=== PATIENT | female | born 1950 | race Caucasian/White ===

== ENCOUNTER 2020-04-24 15:38 | Inpatient (IN) | payer MEDICARE, OTHER ==
[~2020-04-24] VITALS: Ht 160 cm; Wt 78.9 kg
[~2020-04-24 15:38] MED LIST: AMIN30LI2 PO; ASCO500C PO; ASPI-630 PO; ATOR40TA59 PO; BISA5TAB4 PO; CLOT15CR53 TP; CLOT30CR TP; DOCU50CA11 PO; FERR-3 PO; FLAV100T PO; FURO40TA4 PO; LORA10TA3 PO; OXYC5CAP PO; POLY500P14 PO; POTA20TA4 PO; VENL150T PO; ZINC220C7 PO
[2020-04-24] MEDS ORDERED: ACETAMINOPHEN 500 MG TABLET PO ONE (16:15)
[2020-04-24] MEDS ORDERED: IV NORMAL SALINE 1000ML BAG 1,000 ML IV ONE ×2 (16:15→18:00)
--- NOTE | 2020-04-24 16:29 | RAD ---
XR CHEST 1V History: Reason: FEVER / Spl. Instructions: / History: Comparison: August 07, 2015 Findings: Low lung volumes with mild linear bibasilar atelectasis. No consolidation. No pleural effusion. No pn eumothorax. Impression: 1. Low lung volumes with mild linear bibasilar atelectasis. Electronically signed by: Parth Badillo DO (04/24/2020 4:27 PM) [facility]
[2020-04-24 16:33] LABS: BASO # 0.1 x10^3/uL (0.0-0.2); BASO % 1 % (0-3); EOS # 0.3 x10^3/uL (0.0-0.7); EOS % 2 % (0-3); HEMATOCRIT 40.2 % (36.0-47.0); HEMOGLOBIN 12.9 g/dL (12.0-15.5); LYMPH # 2.3 x10^3/uL (1.0-4.8); LYMPH % 16 % (24-48); MEAN CORPUSCULAR HEMOGLOBIN 25 pg (25-35); MEAN CORPUSCULAR HGB CONC 32 g/dL (31-37); MEAN CORPUSCULAR VOLUME 78 fL (79-100); MONO # 1.4 x10^3/uL (0.0-1.1); MONO % 9 % (0-9); NEUT # 10.7 x10^3/uL (1.8-7.7); NEUT % 73 % (31-73); PLATELET COUNT 322 x10^3/uL (140-400); RED BLOOD COUNT 5.18 x10^6/uL (3.50-5.40); RED CELL DISTRIBUTION WIDTH 17.7 % (11.5-14.5); WHITE BLOOD COUNT 14.8 x10^3/uL (4.0-11.0)
[2020-04-24 17:01] LABS: BILIRUBIN,URINE NEGATIVE (NEG); CLARITY,URINE CLEAR; COLOR,URINE YELLOW; NITRITE,URINE NEGATIVE (NEG); PH,URINE 8.5 (<5.0-8.0); PROTEIN,URINE 30 mg/dL (NEG-TRACE)
[2020-04-24 17:15] LABS: BACTERIA,URINE MODERATE /HPF (0-FEW); RBC,URINE 0 /HPF (0-2)
[2020-04-24 17:22] LABS: CREATININE 0.8 mg/dL (0.6-1.0); GFR 70.9; POTASSIUM 4.7 mmol/L (3.5-5.1)
[2020-04-24 17:28] LABS: ALBUMIN 2.9 g/dL (3.4-5.0); ALBUMIN/GLOBULIN RATIO 0.6 (1.0-1.7); TOTAL BILIRUBIN 0.5 mg/dL (0.2-1.0)
--- NOTE | 2020-04-24 17:37 | RAD ---
Examination: Frontal view of the abdomen HISTORY: History of baclofen pump location, COMPARISON: None available Findings/ impression: Evaluation of the small bowel is limited due to paucity of gas in the small bowel.. Feces and gas not ed in the colon. Baclofen pump is identified with the wire projecting in the level of L2 or L3 verteb ral level. The evaluation of distal aspect of the wire is limited due to bowel gas and due to body francisco bitus. Electronically signed by: Kameron Fu MD (04/24/2020 5:35 PM) [id number]
[2020-04-24 17:43] LABS: INFLUENZA A PATIENT NEGATIVE (NEGATIVE); INFLUENZA B PATIENT NEGATIVE (NEGATIVE)
--- NOTE | 2020-04-24 17:56 | PHYS DOC ---
Past Medical History Past Medical History: Anemia, Constipation, Depression, Hypertension, [place], Pneumonia, UTI, Other Additional Past Medical Histor: multiple sclerosis, C. Diff, obesity, osteomyelitis (BEBE CELESTIN DO) Past Surgical History: Other Additional Past Surgical Histo: debreeding x 3, muscle flap repair x 2, (BEBE CELESTIN DO) Smoking Status: Never Smoker Alcohol Use: None Drug Use: None (BEBE CELESTIN DO) General Adult EDM: Chief Complaint: Right side flankl pain HPI: HPI: Patient is a 70 year old male presented to the ER by EMS from senior care due to right side flank pain, abdominal pain and fever. Patient was tested positive for COVID-19 INFECTION on 03/24/20. Patient has MS, has urostomy and colostomy. Patient also has fever with generalized weakness. Patient has baclofen pump on the right side. Patient said last week when she was evaluated at , when they moved her, they pumped her right side of abdomen against the bed rail. Since she has right side abdominal pain. (BEBE CELESTIN DO) Review of Systems: Review of Systems: Constitutional: Positive for fever and chills. [] Eyes: Denies change in visual acuity. [] HENT: Denies nasal congestion or sore throat. [] Respiratory: Denies cough or shortness of breath. [] Cardiovascular: Denies chest pain or edema. [] GI: Positive for abdominal pain, nausea, vomiting, NO bloody stools or diarrhea. [] : Denies dysuria. [] Musculoskeletal: Denies back pain or joint pain. [] Integument: Denies rash. [] Neurologic: Denies headache, focal weakness or sensory changes. [] Endocrine: Denies polyuria or polydipsia. [] Lymphatic: Denies swollen glands. [] Psychiatric: Denies depression or anxiety. [] (BEBE CELESTIN DO) Heart Score: Risk Factors: Risk Factors: DM, Current or recent (<one month) smoker, HTN, HLP, family history of CAD, obesity. Risk Scores: Score 0 - 3: 2.5% MACE over next 6 weeks - Discharge Home Score 4 - 6: 20.3% MACE over next 6 weeks - Admit for Clinical Observation Score 7 - 10: 72.7% MACE over next 6 weeks - Early Invasive Strategies (BEBE CELESTIN DO) Current Medications: Current Medications Medications (Trade) Dose Ordered Sig/Alison Start Time Stop Time Status Last Admin Dose Admin Acetaminophen (Tylenol) 1,000 mg 1X ONCE 04/24/20 16:15 04/24/20 16:16 DC 04/24/20 16:26 1,000 MG Levofloxacin/ Dextrose 150 ml @ 100 mls/hr 1X ONCE 04/24/20 17:30 04/24/20 18:59 Sodium Chloride 1,000 ml @ 1,000 mls/hr 1X ONCE 04/24/20 16:15 04/24/20 17:14 DC 04/24/20 16:26 1,000 MLS/HR (BEBE CELESTIN DO) Allergies: Allergies: Allergies Coded Allergies Type Severity Reaction Last Updated Verified ceftriaxone Allergy Severe Anaphylaxis 08/07/15 Yes (BEBE CELESTIN DO) Physical Exam: PE: Constitutional: Well developed, well nourished, no acute distress, non-toxic a ppearance. [] HENT: Normocephalic, atraumatic, bilateral external ears normal, oropharynx moist, no oral exudates, nose normal. [] Eyes: PERRLA, EOMI, conjunctiva normal, no discharge. [] Neck: Normal range of motion, no tenderness, supple, no stridor. [] Cardiovascular: Sinus tachycardia, regular rhythm, no murmur [] Lungs & Thorax: Bilateral breath sounds clear to auscultation [] Abdomen: Bowel sounds normal, soft, There is right side flank tenderness to palpation, no masses, no pulsatile masses. [] Skin: Warm, dry, facial hot flush. Back: No tenderness, RIGHT SIDE CVA tenderness. [] Extremities: No tenderness, no cyanosis, no clubbing, ROM intact, no edema. [] Neurologic: Alert and oriented X 3, normal motor function, normal sensory function, no focal deficits noted. [] Psychologic: Affect normal, judgement normal, mood normal. [] (BEBE CELESTIN DO) Current Patient Data: Labs: Laboratory Tests Test 04/24/20 16:14 04/24/20 16:46 04/24/20 16:53 White Blood Count 14.8 x10^3/uL (4.0-11.0) H Red Blood Count 5.18 x10^6/uL (3.50-5.40) Hemoglobin 12.9 g/dL (12.0-15.5) Hematocrit 40.2 % (36.0-47.0) Mean Corpuscular Volume 78 fL (79-100) L Mean Corpuscular Hemoglobin 25 pg (25-35) Mean Corpuscular Hemoglobin Concent 32 g/dL (31-37) Red Cell Distribution Width 17.7 % (11.5-14.5) H Platelet Count 322 x10^3/uL (140-400) Neutrophils (%) (Auto) 73 % (31-73) Lymphocytes (%) (Auto) 16 % (24-48) L Monocytes (%) (Auto) 9 % (0-9) Eosinophils (%) (Auto) 2 % (0-3) Basophils (%) (Auto) 1 % (0-3) Neutrophils # (Auto) 10.7 x10^3/uL (1.8-7.7) H Lymphocytes # (Auto) 2.3 x10^3/uL (1.0-4.8) Monocytes # (Auto) 1.4 x10^3/uL (0.0-1.1) H Eosinophils # (Auto) 0.3 x10^3/uL (0.0-0.7) Basophils # (Auto) 0.1 x10^3/uL (0.0-0.2) Sodium Level 136 mmol/L (136-145) Potassium Level 4.7 mmol/L (3.5-5.1) Chloride Level 99 mmol/L (98-107) Carbon Dioxide Level 24 mmol/L (21-32) Anion Gap 13 (6-14) Blood Urea Nitrogen 22 mg/dL (7-20) H Creatinine 0.8 mg/dL (0.6-1.0) Estimated GFR (Cockcroft-Gault) 70.9 BUN/Creatinine Ratio 28 (6-20) H Glucose Level 219 mg/dL (70-99) H Lactic Acid Level 2.6 mmol/L (0.4-2.0) H Calcium Level 9.0 mg/dL (8.5-10.1) Total Bilirubin 0.5 mg/dL (0.2-1.0) Aspartate Amino Transferase (AST) 61 U/L (15-37) H Alanine Aminotransferase (ALT) 77 U/L (14-59) H Alkaline Phosphatase 144 U/L (46-116) H Troponin I Quantitative < 0.017 ng/mL (0.000-0.055) Total Protein 8.0 g/dL (6.4-8.2) Albumin 2.9 g/dL (3.4-5.0) L Albumin/Globulin Ratio 0.6 (1.0-1.7) L Lipase 270 U/L (73-393) Influenza Type A Antigen Negative (NEGATIVE) Influenza Type B Antigen Negative (NEGATIVE) Urine Collection Type Unknown Urine Color Yellow Urine Clarity Clear Urine pH 8.5 (<5.0-8.0) Urine Specific [place] 1.015 (1.000-1.030) Urine Protein 30 mg/dL (NEG-TRACE) Urine Glucose (UA) Negative mg/dL (NEG) Urine Ketones (Stick) Negative mg/dL (NEG) Urine Blood Trace (NEG) Urine Nitrite Negative (NEG) Urine Bilirubin Negative (NEG) Urine Urobilinogen Dipstick 1.0 mg/dL (0.2 mg/dL) Urine Leukocyte Esterase Large (NEG) Urine RBC 0 /HPF (0-2) Urine WBC 11-20 /HPF (0-4) Urine Squamous Epithelial Cells Occ /LPF Urine Bacteria Moderate /HPF (0-FEW) Urine Mucus Slight /LPF Laboratory Tests 04/24/20 16:14 Laboratory Tests 04/24/20 16:14 Vital Signs: Vital Signs Date Time Temp Pulse Resp B/P (MAP) Pulse Ox O2 Delivery O2 Flow Rate FiO2 04/24/20 15:40 102.5 154 34 93 102.5 (BEBE CELESTIN DO) EKG: EKG: [] (BEBE CELESTIN DO) Radiology/Procedures: Radiology/Procedures: [][facility] [address] [place] [address] IMAGING REPORT Signed PATIENT: NAYAN RIVERA ACCOUNT: [id number] : 1950 LOCATION: ER AGE: 70 SEX: F EXAM STATUS: REG ER ORD. PHYSICIAN: BEBE CELESTIN DO REASON: FEVER PROCEDURE: PORTABLE CHEST 1V XR CHEST 1V History: Reason: FEVER / Spl. Instructions: / History: Comparison: August 07, 2015 Findings: Low lung volumes with mild linear bibasilar atelectasis. No consolidation. No pleural effusion. No pneumothorax. Impression: 1. Low lung volumes with mild linear bibasilar atelectasis. Electronically signed by: Parth Badillo DO (04/24/2020 4:27 PM) [facility] DICTATED and SIGNED BY: PARTH BADILLO DO DATE: 04/24/20 [id number] [facility] [address] [place] [address] IMAGING REPORT Signed PATIENT: NAYAN RIVERA ACCOUNT: [id number] : 1950 LOCATION: ER AGE: 70 SEX: F EXAM STATUS: REG ER ORD. PHYSICIAN: BEBE CELESTIN DO REASON: evaluate for baclofen pump location, fracture wire PROCEDURE: KUB Examination: Frontal view of the abdomen HISTORY: History of baclofen pump location, COMPARISON: None available Findings/ impression: Evaluation of the small bowel is limited due to paucity of gas in the small bowel.. Feces and gas noted in the colon. Baclofen pump is identified with the wire projecting in the level of L2 or L3 vertebral level. The evaluation of distal aspect of the wire is limited due to bowel gas and due to body habitus. Electronically signed by: Kameron Fu MD (04/24/2020 5:35 PM) [id number] DICTATED and SIGNED BY: KAMERON FU MD DATE: 04/24/20 [id number] (BEBE CELESTIN DO) Radiology/Procedures: Examination: CT of the abdomen pelvis with IV contrast HISTORY: History of right-sided abdominal pain COMPARISON: None available TECHNIQUE: Axial CT images of the abdomen pelvis were performed with IV contrast. Coronal and sagittal reformats are performed. Exposure: One or more of the following individualized dose reduction techniques were utilized for this examination: 1. Automated exposure control 2. Adjustment of the mA and/or kV according to patient size 3. Use of iterative reconstruction technique Findings: Mild bibasilar lung atelectasis. No evidence of free air identified in the abdomen. Diffuse decreased attenuation noted in the liver likely hepatic steatosis. The spleen, adrenals grossly appears unremarkable. The gallbladder is mildly distended. The stomach is mildly distended. The visualized pancreas grossly appears unremarkable. The distal small bowel loops are mildly distended. Changes of probable right ileostomy and left colostomy changes identified. The appendix is not well-visualized. Feces and gas noted in the visualized colon. The bilateral kidneys enhance symmetrically. Minimal amount of fluid identified in the right paracolic gutter region. The coccyx is not visualized likely prior surgical changes.. There is probable ulcer identified in the right gluteal region extending to the right ischial tuberosity region. Moderate degenerative changes thoracal lumbar spine. Single lead baclofen pump identified in the lower thoracic spine level. IMPRESSION: 1. Mild distended small bowel loops in the lower small bowel region nonspecific could be partial small bowel obstruction. 2. Minimal amount of fluid identified in the right paracolic gutter region, nonspecific. 3. Hepatic steatosis. 4. There is probable ulcer identified in the right gluteal region extending to the right ischial tuberosity region. Consider follow-up MRI pelvis if osteomyelitis is considered. Electronically signed by: Kameron Fu MD (04/24/2020 6:30 PM) [id number] (RAMU VALVERDE DO) Course & Med Decision Making: Course & Med Decision Making Pertinent Labs and Imaging studies reviewed. (See chart for details) Endorsed to Dr. Ramu Valverde at shift change, pending CT abdomen and pelvic (BEBE CELESTIN DO) Course & Med Decision Making I assumed care of patient at the start of my shift. I received comprehensive signout from off going physician and reviewed patient's ER work-up in its entirety I personally saw patient and repeated certain aspects of history and physical exam. I discussed findings of sepsis with source being UTI and afebrile patient with numerous comorbidities. I also discussed finding of partial small bowel obstruction that will require continued care. I stressed need for admission I contacted hospitalist and discussed case at length, hospitalist agreed for need of admission and accepted patient under his care with plans to admit patient to medical/telemetry unit for continued inpatient medical management Updated patient on proposed plan of care that required admission for continued IV antibiotics and other services and was indicated, she was amenable. All questions and concerns addressed prior to ER transfer to floor for admission Critical Care Time This patient required critical care. Due to the fact that the patient required a significant amount of one on one physician - patient contact time, ordering and review of studies, arranging urgent treatment with development of a management plan, evaluation of patients response to treatment with frequent reassessments, and discussions with other providers this patient required 35 minutes of critical care time. Critical care time was indicated due to the inherent instability and/or potential for instability in this patient. The critical care time that is allocated to this patient is above and beyond any time spent on any other billable procedures performed on this patient. (RAMU VALVERDE DO) Dragon Disclaimer: Dragon Disclaimer: This electronic medical record was generated, in whole or in part, using a voice recognition dictation system. (BEBE CELESTIN DO) Departure Departure Impression: Primary Impression: Pyelonephritis Additional Impressions: Sepsis Multiple sclerosis Partial small bowel obstruction Disposition: 09 ADMITTED INPT THIS HOSP Admitting Physician: ISIDORO (DR. DIXON) (BEBE CELESTIN DO) Admitting Physician: ISIDORO middleton) (RAMU VALVERDE DO) Condition: IMPROVED Referrals: OLEGARIO NASH MD (PCP) BEBE CELESTIN DO Apr 24, 2020 17:56 RAMU VALVERDE DO Apr 24, 2020 18:46
[2020-04-24] MEDS ORDERED: IOHEXOL 300 MG/ML 100ML VIAL. IV ONE (18:00)
[2020-04-24] MEDS ORDERED: MORPHINE SULFATE 4 MG/ML VIAL. IV ONE (18:00)
[2020-04-24] MEDS ORDERED: CONTRAST GIVEN. MC PRN (18:00)
--- NOTE | 2020-04-24 18:32 | RAD ---
Examination: CT of the abdomen pelvis with IV contrast HISTORY: History of right-sided abdominal pain COMPARISON: None available TECHNIQUE: Axial CT images of the abdomen pelvis were performed with IV contrast. Coronal and sagitta l reformats are performed. Exposure: One or more of the following individualized dose reduction techniques were utilized for thi s examination: 1. Automated exposure control 2. Adjustment of the mA and/or kV according to patient size 3. Use of iterative reconstruction technique Findings: Mild bibasilar lung atelectasis. No evidence of free air identified in the abdomen. Diffuse decreased attenuation noted in the liver likely hepatic steatosis. The spleen, adrenals gross ly appears unremarkable. The gallbladder is mildly distended. The stomach is mildly distended. The vi sualized pancreas grossly appears unremarkable. The distal small bowel loops are mildly distended. Changes of probable right ileostomy and left colostomy changes identified. The appendix is not well-v isualized. Feces and gas noted in the visualized colon. The bilateral kidneys enhance symmetrically. Minimal amount of fluid identified in the right paracolic gutter region. The coccyx is not visualized likely prior surgical changes.. There is probable ulcer identified in the right gluteal region extending to the right ischial tuberos ity region. Moderate degenerative changes thoracal lumbar spine. Single lead baclofen pump identified in the lowe r thoracic spine level. IMPRESSION: 1. Mild distended small bowel loops in the lower small bowel region nonspecific could be partial sma ll bowel obstruction. 2. Minimal amount of fluid identified in the right paracolic gutter region, nonspecific. 3. Hepatic steatosis. 4. There is probable ulcer identified in the right gluteal region extending to the right ischial tub erosity region. Consider follow-up MRI pelvis if osteomyelitis is considered. Electronically signed by: Kameron Fu MD (04/24/2020 6:30 PM) [id number]
[2020-04-24 23:21] VITALS: BP 133/60
[2020-04-25] MEDS ORDERED: PYRI25TA PO (02:08)
[2020-04-25] MEDS ORDERED: ATOR20TA58 PO (02:08)
[2020-04-25] MEDS ORDERED: DIPH25CA58 PO (02:08)
[2020-04-25] MEDS ORDERED: MULT-245 PO (02:08)
[2020-04-25] MEDS ORDERED: ONDA4TAB7 PO (02:08)
[2020-04-25] MEDS ORDERED: SENN-182 PO (02:08)
[2020-04-25] MEDS ORDERED: ACET325T9 PO (02:08)
[2020-04-25] MEDS ORDERED: PROP10DR3 EACHEYE (02:08)
[2020-04-25] MEDS ORDERED: ZINC220T3 PO (02:08)
[2020-04-25] MEDS ORDERED: VENL75TA PO (02:08)
[2020-04-25] MEDS ORDERED: MELA5TAB11 SL (02:08)
[2020-04-25] MEDS ORDERED: CETI10TA16 PO (02:08)
[2020-04-25 04:14] VITALS: BP 121/46
[2020-04-25 07:00] VITALS: BP 108/29
--- NOTE | 2020-04-25 08:52 | PDOC1 ---
History and Physical Date of Admission Date of Admission DATE: 04/25/20 TIME: 08:51 Identification/Chief Complaint Chief Complaint seen in er with possible pyelonephritis , sacral wound 70 year old female presented to the ER by EMS from [facility] due to right side flank pain, abdominal pain and fever. tested positive for COVID-19 INFECTION on 03/24/20. Patient has MS, has urostomy and colostomy. // has fever with generalized weakness. hx baclofen pump on the right side. // last week when she was evaluated at , when they moved her, they pumped her right side of abdomen against the bed rail. Since she has right side abdominal pain in 2016 developed a large sacral decubitus ulcer and hospitalized at [facility] for osteomyelitis. At that time, she underwent a debridement and was transferred to [facility] where she completed a course of IV antibiotics. Past Medical History Past Medical History Past Medical History Past Medical History: Anemia, Constipation, Depression, Hypertension, [place], Pneumonia, UTI, Other Additional Past Medical Histor: multiple sclerosis, C. Diff, obesity, osteomyelitis Past Surgical History: Other Additional Past Surgical Histo: debreeding x 3, muscle flap repair x 2, Smoking Status: Never Smoker Alcohol Use: None Drug Use: None fhx HTN Cardiovascular: Hyperlipidemia Family History Family History: High Cholestrol, Hypertension Social History Smoke: No ALCOHOL: none Drugs: None Current Problem List Problem List Problems Medical Problems: (1) Flank pain Status: Acute (2) Multiple sclerosis Status: Acute (3) Partial small bowel obstruction Status: Acute (4) Pyelonephritis Status: Acute (5) Sepsis Status: Acute (6) UTI (urinary tract infection) Status: Acute Current Medications Current Medications Current Medications Sodium Chloride 1,000 ml @ 1,000 mls/hr 1X ONCE IV Last administered on 04/24/20at 16:26; Start 04/24/20 at 16:15; Stop 04/24/20 at 17:14; Status DC Acetaminophen (Tylenol) 1,000 mg 1X ONCE PO Last administered on 04/24/20at 16:26; Start 04/24/20 at 16:15; Stop 04/24/20 at 16:16; Status DC Levofloxacin/ Dextrose 150 ml @ 100 mls/hr 1X ONCE IV Last administered on 04/24/20at 18:32; Start 04/24/20 at 17:30; Stop 04/24/20 at 18:59; Status DC Iohexol (Omnipaque 300 Mg/ml) 75 ml 1X ONCE IV Last administered on 04/24/20at 18:07; Start 04/24/20 at 18:00; Stop 04/24/20 at 18:01; Status DC Info (CONTRAST GIVEN -- Rx MONITORING) 1 each PRN DAILY PRN MC SEE COMMENTS; Start 04/24/20 at 18:00; Stop 04/26/20 at 17:59 Morphine Sulfate (Morphine Sulfate) 4 mg 1X ONCE IV ; Start 04/24/20 at 18:00; Stop 04/24/20 at 18:01; Status DC Sodium Chloride 1,000 ml @ 1,000 mls/hr 1X ONCE IV Last administered on 04/24/20at 18:32; Start 04/24/20 at 18:00; Stop 04/24/20 at 18:59; Status DC Active Scripts Active Reported Zofran (Ondansetron Hcl) 4 Mg Tablet 1 Tab PO Q4HRS PRN Zinc Sulfate 220 Mg Tablet 1 Tab PO QHS 30 Days Pyridoxine HCl (Pyridoxine HCl (Vitamin B6)) 25 Mg Tablet 100 Mg PO QAM Venlafaxine Hcl 75 Mg Tablet 187.5 Mg PO DAILY Systane Ultra 0.4-0.3% Eye Drp (Propylene Glycol/Peg 400) 10 Ml Drops 1 Drop EACHEYE QID PRN Senna (Sennosides) 8.6 Mg Tablet 8.6 Mg PO QEVNG Multi Vitamin Daily (Multivitamin) 1 Each Tablet 1 Tab PO DAILY 30 Days Melatonin 5 Mg Tab.subl 2 Tab SL QHS 30 Days Cetirizine Hcl 10 Mg Tablet 1 Tab PO DAILY Benadryl (Diphenhydramine Hcl) 25 Mg Capsule 25 Mg PO Q6HRS Atorvastatin Calcium 20 Mg Tablet 20 Mg PO HS Tylenol (Acetaminophen) 325 Mg Tablet 2 Tab PO PRN Q6HRS PRN Vitamin C (Ascorbic Acid) 500 Mg Capsule.er 500 Mg PO DAILY Polyethylene Glycol (Polyethylene Glycol 8000) 500 Gm Powder 17 Gm PO DAILY Furosemide 40 Mg Tablet 1 Tab PO DAILY Ferrousul (Ferrous Sulfate) 325 Mg Tablet 325 Mg PO DAILY Colace Clear (Docusate Sodium) 50 Mg Capsule 100 Mg PO BID Clotrimazole Af (Clotrimazole) 30 Gm Cream..g. 30 Gm TP Bisacodyl 5 Mg Tablet.dr 5 Mg PO PRN DAILY PRN Aspirin 81 Mg Tab.chew 1 Tab PO DAILY Allergies Allergies: Coded Allergies: ceftriaxone (Verified Allergy, Severe, Anaphylaxis, 08/07/15) ROS Review of System onstitutional: Positive for fever and chills. [] Eyes: Denies change in visual acuity. [] HENT: Denies nasal congestion or sore throat. [] Respiratory: Denies cough or shortness of breath. [] Cardiovascular: Denies chest pain or edema. [] GI: Positive for abdominal pain, nausea, vomiting, NO bloody stools or diarrhea. [] : Denies dysuria. [] Musculoskeletal: Denies back pain or joint pain. [] Integument: Denies rash. [] Neurologic: Denies headache, focal weakness or sensory changes. [] Endocrine: Denies polyuria or polydipsia. [] Lymphatic: Denies swollen glands. [] Psychiatric: Denies depression or anxiety. [] 14 pt ros otherwise neg Physical Exam Physical Exam Constitutional: Well developed, well nourished, no acute distress, non-toxic appearance. [] HENT: Normocephalic, atraumatic, bilateral external ears normal, oropharynx moist, no oral exudates, nose normal. [] Eyes: PERRLA, EOMI, conjunctiva normal, no discharge. [] Neck: Normal range of motion, no tenderness, supple, no stridor. [] Cardiovascular: Sinus tachycardia, regular rhythm, no murmur [] Lungs & Thorax: Bilateral breath sounds clear to auscultation [] Abdomen: Bowel sounds normal, soft, There is right side flank tenderness to palpation, no masses, no pulsatile masses. [] Skin: Warm, dry, facial hot flush. sacral wound Back: No tenderness, RIGHT SIDE CVA tenderness. [] Extremities: No tenderness, no cyanosis, no clubbing, ROM intact, no edema. [] Neurologic: Alert and oriented X 3, normal motor function, normal sensory function, no focal deficits noted. [] Psychologic: Affect normal, judgment normal, mood normal. [] Vitals Vitals Vital Signs Date Time Temp Pulse Resp B/P (MAP) Pulse Ox O2 Delivery O2 Flow Rate FiO2 04/25/20 07:00 96.2 88 18 108/29 (55) 97 Room Air 96.2 Labs Labs Laboratory Tests Test 04/24/20 16:14 04/24/20 16:46 04/24/20 16:53 04/25/20 03:30 White Blood Count 14.8 x10^3/uL (4.0-11.0) Red Blood Count 5.18 x10^6/uL (3.50-5.40) Hemoglobin 12.9 g/dL (12.0-15.5) Hematocrit 40.2 % (36.0-47.0) Mean Corpuscular Volume 78 fL (79-100) Mean Corpuscular Hemoglobin 25 pg (25-35) Mean Corpuscular Hemoglobin Concent 32 g/dL (31-37) Red Cell Distribution Width 17.7 % (11.5-14.5) Platelet Count 322 x10^3/uL (140-400) Neutrophils (%) (Auto) 73 % (31-73) Lymphocytes (%) (Auto) 16 % (24-48) Monocytes (%) (Auto) 9 % (0-9) Eosinophils (%) (Auto) 2 % (0-3) Basophils (%) (Auto) 1 % (0-3) Neutrophils # (Auto) 10.7 x10^3/uL (1.8-7.7) Lymphocytes # (Auto) 2.3 x10^3/uL (1.0-4.8) Monocytes # (Auto) 1.4 x10^3/uL (0.0-1.1) Eosinophils # (Auto) 0.3 x10^3/uL (0.0-0.7) Basophils # (Auto) 0.1 x10^3/uL (0.0-0.2) Sodium Level 136 mmol/L (136-145) Potassium Level 4.7 mmol/L (3.5-5.1) Chloride Level 99 mmol/L (98-107) Carbon Dioxide Level 24 mmol/L (21-32) Anion Gap 13 (6-14) Blood Urea Nitrogen 22 mg/dL (7-20) Creatinine 0.8 mg/dL (0.6-1.0) Estimated GFR (Cockcroft-Gault) 70.9 BUN/Creatinine Ratio 28 (6-20) Glucose Level 219 mg/dL (70-99) Lactic Acid Level 2.6 mmol/L (0.4-2.0) 1.5 mmol/L (0.4-2.0) Calcium Level 9.0 mg/dL (8.5-10.1) Total Bilirubin 0.5 mg/dL (0.2-1.0) Aspartate Amino Transf (AST/SGOT) 61 U/L (15-37) Alanine Aminotransferase (ALT/SGPT) 77 U/L (14-59) Alkaline Phosphatase 144 U/L (46-116) Troponin I Quantitative < 0.017 ng/mL (0.000-0.055) Total Protein 8.0 g/dL (6.4-8.2) Albumin 2.9 g/dL (3.4-5.0) Albumin/Globulin Ratio 0.6 (1.0-1.7) Lipase 270 U/L (73-393) Influenza Type A Antigen Negative (NEGATIVE) Influenza Type B Antigen Negative (NEGATIVE) Urine Collection Type Unknown Urine Color Yellow Urine Clarity Clear Urine pH 8.5 (<5.0-8.0) Urine Specific [place] 1.015 (1.000-1.030) Urine Protein 30 mg/dL (NEG-TRACE) Urine Glucose (UA) Negative mg/dL (NEG) Urine Ketones (Stick) Negative mg/dL (NEG) Urine Blood Trace (NEG) Urine Nitrite Negative (NEG) Urine Bilirubin Negative (NEG) Urine Urobilinogen Dipstick 1.0 mg/dL (0.2 mg/dL) Urine Leukocyte Esterase Large (NEG) Urine RBC 0 /HPF (0-2) Urine WBC 11-20 /HPF (0-4) Urine Squamous Epithelial Cells Occ /LPF Urine Bacteria Moderate /HPF (0-FEW) Urine Mucus Slight /LPF Test 04/25/20 08:12 Glucose (Fingerstick) 184 mg/dL (70-99) Laboratory Tests Test 04/24/20 16:14 04/24/20 16:46 04/24/20 16:53 04/25/20 03:30 White Blood Count 14.8 x10^3/uL (4.0-11.0) Red Blood Count 5.18 x10^6/uL (3.50-5.40) Hemoglobin 12.9 g/dL (12.0-15.5) Hematocrit 40.2 % (36.0-47.0) Mean Corpuscular Volume 78 fL (79-100) Mean Corpuscular Hemoglobin 25 pg (25-35) Mean Corpuscular Hemoglobin Concent 32 g/dL (31-37) Red Cell Distribution Width 17.7 % (11.5-14.5) Platelet Count 322 x10^3/uL (140-400) Neutrophils (%) (Auto) 73 % (31-73) Lymphocytes (%) (Auto) 16 % (24-48) Monocytes (%) (Auto) 9 % (0-9) Eosinophils (%) (Auto) 2 % (0-3) Basophils (%) (Auto) 1 % (0-3) Neutrophils # (Auto) 10.7 x10^3/uL (1.8-7.7) Lymphocytes # (Auto) 2.3 x10^3/uL (1.0-4.8) Monocytes # (Auto) 1.4 x10^3/uL (0.0-1.1) Eosinophils # (Auto) 0.3 x10^3/uL (0.0-0.7) Basophils # (Auto) 0.1 x10^3/uL (0.0-0.2) Sodium Level 136 mmol/L (136-145) Potassium Level 4.7 mmol/L (3.5-5.1) Chloride Level 99 mmol/L (98-107) Carbon Dioxide Level 24 mmol/L (21-32) Anion Gap 13 (6-14) Blood Urea Nitrogen 22 mg/dL (7-20) Creatinine 0.8 mg/dL (0.6-1.0) Estimated GFR (Cockcroft-Gault) 70.9 BUN/Creatinine Ratio 28 (6-20) Glucose Level 219 mg/dL (70-99) Lactic Acid Level 2.6 mmol/L (0.4-2.0) 1.5 mmol/L (0.4-2.0) Calcium Level 9.0 mg/dL (8.5-10.1) Total Bilirubin 0.5 mg/dL (0.2-1.0) Aspartate Amino Transf (AST/SGOT) 61 U/L (15-37) Alanine Aminotransferase (ALT/SGPT) 77 U/L (14-59) Alkaline Phosphatase 144 U/L (46-116) Troponin I Quantitative < 0.017 ng/mL (0.000-0.055) Total Protein 8.0 g/dL (6.4-8.2) Albumin 2.9 g/dL (3.4-5.0) Albumin/Globulin Ratio 0.6 (1.0-1.7) Lipase 270 U/L (73-393) Influenza Type A Antigen Negative (NEGATIVE) Influenza Type B Antigen Negative (NEGATIVE) Urine Collection Type Unknown Urine Color Yellow Urine Clarity Clear Urine pH 8.5 (<5.0-8.0) Urine Specific [place] 1.015 (1.000-1.030) Urine Protein 30 mg/dL (NEG-TRACE) Urine Glucose (UA) Negative mg/dL (NEG) Urine Ketones (Stick) Negative mg/dL (NEG) Urine Blood Trace (NEG) Urine Nitrite Negative (NEG) Urine Bilirubin Negative (NEG) Urine Urobilinogen Dipstick 1.0 mg/dL (0.2 mg/dL) Urine Leukocyte Esterase Large (NEG) Urine RBC 0 /HPF (0-2) Urine WBC 11-20 /HPF (0-4) Urine Squamous Epithelial Cells Occ /LPF Urine Bacteria Moderate /HPF (0-FEW) Urine Mucus Slight /LPF Test 04/25/20 08:12 Glucose (Fingerstick) 184 mg/dL (70-99) Images Images Signed PATIENT: NAYAN RIVERA ACCOUNT: [id number] : 1950 LOCATION: ER AGE: 70 SEX: F EXAM STATUS: REG ER ORD. PHYSICIAN: BEBE CELESTIN DO REASON: right side abdominal pain, fever PROCEDURE: CT ABD PELV W/ IV CONTRST ONLY Examination: CT of the abdomen pelvis with IV contrast HISTORY: History of right-sided abdominal pain COMPARISON: None available TECHNIQUE: Axial CT images of the abdomen pelvis were performed with IV contrast. Coronal and sagittal reformats are performed. Exposure: One or more of the following individualized dose reduction techniques were utilized for this examination: 1. Automated exposure control 2. Adjustment of the mA and/or kV according to patient size 3. Use of iterative reconstruction technique Findings: Mild bibasilar lung atelectasis. No evidence of free air identified in the abdomen. Diffuse decreased attenuation noted in the liver likely hepatic steatosis. The spleen, adrenals grossly appears unremarkable. The gallbladder is mildly d istended. The stomach is mildly distended. The visualized pancreas grossly appears unremarkable. The distal small bowel loops are mildly distended. Changes of probable right ileostomy and left colostomy changes identified. The appendix is not well-visualized. Feces and gas noted in the visualized colon. The bilateral kidneys enhance symmetrically. Minimal amount of fluid identified in the right paracolic gutter region. The coccyx is not visualized likely prior surgical changes.. There is probable ulcer identified in the right gluteal region extending to the right ischial tuberosity region. Moderate degenerative changes thoracal lumbar spine. Single lead baclofen pump identified in the lower thoracic spine level. IMPRESSION: 1. Mild distended small bowel loops in the lower small bowel region nonspecific could be partial small bowel obstruction. 2. Minimal amount of fluid identified in the right paracolic gutter region, nonspecific. 3. Hepatic steatosis. 4. There is probable ulcer identified in the right gluteal region extending to the right ischial tuberosity region. Consider follow-up MRI pelvis if osteomyelitis is considered. Electronically signed by: Kameron Fu MD (04/24/2020 6:30 PM) [id number] DICTATED and SIGNED BY: KAMERON FU MD DATE: 04/24/20 [id number] VTE Prophylaxis Ordered VTE Prophylaxis Devices: Yes VTE Pharmacological Prophylaxi: Yes Assessment/Plan Assessment/Plan IMPRESSION: 1. acute SEPSIS 2. Mild distended small bowel loops in the lower small bowel region nonspecific // partial small bowel obstruction. 3. Minimal amount of fluid identified in the right paracolic gutter region, nonspecific. 4. Hepatic steatosis. 5. on ct ulcer identified in the right gluteal region extending to the right ischial tuberosity region. Consider follow-up MRI pelvis to exclude osteomyelitis 6. Acute pyelonephritis 7. DIABETES plan admit reg due to sepsis, need for iv antibiotics blood and urine cultures ID consult GI CONSULT Emperic iv antibiotics, pending ID consult, levaquin ortho consult procalcitonin sepsis protocol iv fluid support dvt prophylaxis accuchrani, ss insulin Justifications for Admission Other Justification KOFI DIXON MD Apr 25, 2020 08:52
[2020-04-25] MEDS ORDERED: ACETAMINOPHEN 325 MG TABLET. PO PRN ×2 (10:15→12:30)
[2020-04-25] MEDS ORDERED: ONDANSETRON ODT 4 MG TAB.RAPDIS. PO PRN (10:45)
[2020-04-25 11:00] VITALS: BP 111/60
[2020-04-25] MEDS ORDERED: diphenhydrAMINE HCL 25 MG CAPSULE PO PRN (11:00)
[2020-04-25] MEDS ORDERED: POLYVINYL ALCOHOL 1.4% OPHTH SOLUTION 15ML BOTTLE. OU PRN (11:00)
[2020-04-25] MEDS: ASCORBIC ACID 500 MG TABLET PO SCH (11:21)
[2020-04-25] MEDS: PYRIDOXINE 50 MG TABLET. PO SCH (11:21)
[2020-04-25] MEDS: FERROUS SULFATE 325 MG TABLET. PO SCH (11:21)
[2020-04-25] MEDS: ASPIRIN CHEWABLE 81 MG TABLET. PO SCH (11:21)
[2020-04-25] MEDS: VENLAFAXINE XR 37.5 MG CAP.ER.24H. PO SCH (11:21)
[2020-04-25] MEDS: FUROSEMIDE 40 MG TABLET. PO SCH (11:27)
[2020-04-25] MEDS: CETIRIZINE HCL 10 MG TABLET. PO SCH (11:27)
[2020-04-25] MEDS: POLYETHYLENE GLYCOL 3350 17 GM PACKET. PO SCH (11:28)
[2020-04-25] MEDS: DOCUSATE SODIUM 100 MG CAPSULE. PO SCH ×2 (11:28→20:35)
[2020-04-25] MEDS ORDERED: diphenhydrAMINE HCL 25 MG CAPSULE PO SCH (12:00)
[2020-04-25] MEDS ORDERED: VANCOMYCIN PER PHARMACY MC PRN ×2 (12:15→12:30)
[2020-04-25] MEDS: IV NORMAL SALINE 1000ML BAG 1,000 ML IV SCH ×3 (12:15→14:10)
[2020-04-25] MEDS ORDERED: IV NORMAL SALINE 500ML BAG 500 ML IV PRN (12:15)
[2020-04-25] MEDS ORDERED: LORazepam 0.5 MG TABLET PO PRN (12:30)
[2020-04-25] MEDS ORDERED: SODIUM PHOSPHATES 19/7GM 133 ML ENEMA. PR PRN (12:30)
[2020-04-25] MEDS ORDERED: ACETAMINOPHEN 650 MG SUPP.RECT. PR PRN (12:30)
[2020-04-25] MEDS ORDERED: ONDANSETRON PF 4 MG/2 ML VIAL. IV PRN (12:30)
[2020-04-25] MEDS ORDERED: DOCUSATE SODIUM 100 MG CAPSULE. PO PRN (12:30)
[2020-04-25] MEDS ORDERED: 0.9 % SODIUM CHLORIDE 10 ML DISP.SYRIN. IV PRN (12:30)
[2020-04-25] MEDS ORDERED: MAG HYDROX/ALUMINUM HYD/SIMETH 30 ML ORAL.SUSP PO PRN (12:30)
[2020-04-25] MEDS ORDERED: ALBUTEROL SULFATE 2.5 MG/3 ML NEBU. NEB PRN (12:30)
[2020-04-25] MEDS ORDERED: VANCOMYCIN 2 GM in IV NORMAL SALINE 500ML BAG 500 ML IV ONE (12:45)
--- NOTE | 2020-04-25 13:02 | PDOC2 ---
GI CONSULT Date of Service: DATE: 04/25/20 TIME: 12:39 Reason For Consult: possible partial SBO HPI: HPI: 70 y/o female sent from care facility to ER w/ neck and right rib pain which occurred after staff pushed on ribs on turn her. Apparently also had concern re: dislodgement of baclofen pump. CT A/P report notes "mild distended small bowel loops in the lower small bowel region nonspecific" and we are asked to see re: this. She was eating broccoli, salad, roast beef, and bread when I saw. Nurse says no vomiting or c/o pain. Has tolerated diet today. Noted stool from ostomy this morning. Pt also denies vomiting and abdominal pain. Recently had COVID and had some na usea then which has improved. H/o constipation improved w/ Miralax QD-BID. No stool yesterday - "just a little liquid." Takes iron. During interview, she notes she is passing gas. H/o MS and sacral decub s/p flap - advised to have colostomy before surgery (done at ). Additional h/o neurogenic bladder s/p SPC and now urostomy (also done at ). H/o reflux before EGD (can't remember where performed - either or [facility]) ~3 years ago - no reflux now. EGD recalled as normal. No dysphagia - does m ention it's difficult to eat and cut food up with one hand - would like help with this from staff. Denies bleeding. Weight stable. No previous colonoscopy. No GB, liver, pancreas, or PUD history. Hepatic steatosis noted on CT. Summary list includes ASA. Says she is moving to living facility in [place] soon where her [id number] in an participant administrator. PMH: PMH: MS, HTN, HLD, pneumonia, COVID, PR, depression, UTI, nephrolithiasis, sacral decub s/p debridement and flap, hysterectomy, lithotripsy, baclofen pump FH: Family History: No pertinent hx Social History: Smoke: No ALCOHOL: none Drugs: None ROS: GEN: +fever HEENT: Denies blurred vision, sore throat CV: Denies chest pain RESP: Denies shortness of air, cough GI: Per HPI : +urostomy ENDO: Denies weight changes NEURO/MSK: MS SKIN: Denies jaundice, pruritus Vitals: Vitals: Vital Signs Date Time Temp Pulse Resp B/P (MAP) Pulse Ox O2 Delivery O2 Flow Rate FiO2 04/25/20 11:00 97.9 95 20 111/60 (77) 94 Room Air 97.9 Labs: Labs: Laboratory Tests Test 04/24/20 16:14 04/24/20 16:46 04/24/20 16:53 04/25/20 03:30 White Blood Count 14.8 x10^3/uL (4.0-11.0) Red Blood Count 5.18 x10^6/uL (3.50-5.40) Hemoglobin 12.9 g/dL (12.0-15.5) Hematocrit 40.2 % (36.0-47.0) Mean Corpuscular Volume 78 fL (79-100) Mean Corpuscular Hemoglobin 25 pg (25-35) Mean Corpuscular Hemoglobin Concent 32 g/dL (31-37) Red Cell Distribution Width 17.7 % (11.5-14.5) Platelet Count 322 x10^3/uL (140-400) Neutrophils (%) (Auto) 73 % (31-73) Lymphocytes (%) (Auto) 16 % (24-48) Monocytes (%) (Auto) 9 % (0-9) Eosinophils (%) (Auto) 2 % (0-3) Basophils (%) (Auto) 1 % (0-3) Neutrophils # (Auto) 10.7 x10^3/uL (1.8-7.7) Lymphocytes # (Auto) 2.3 x10^3/uL (1.0-4.8) Monocytes # (Auto) 1.4 x10^3/uL (0.0-1.1) Eosinophils # (Auto) 0.3 x10^3/uL (0.0-0.7) Basophils # (Auto) 0.1 x10^3/uL (0.0-0.2) Sodium Level 136 mmol/L (136-145) Potassium Level 4.7 mmol/L (3.5-5.1) Chloride Level 99 mmol/L (98-107) Carbon Dioxide Level 24 mmol/L (21-32) Anion Gap 13 (6-14) Blood Urea Nitrogen 22 mg/dL (7-20) Creatinine 0.8 mg/dL (0.6-1.0) Estimated GFR (Cockcroft-Gault) 70.9 BUN/Creatinine Ratio 28 (6-20) Glucose Level 219 mg/dL (70-99) Lactic Acid Level 2.6 mmol/L (0.4-2.0) 1.5 mmol/L (0.4-2.0) Calcium Level 9.0 mg/dL (8.5-10.1) Total Bilirubin 0.5 mg/dL (0.2-1.0) Aspartate Amino Transf (AST/SGOT) 61 U/L (15-37) Alanine Aminotransferase (ALT/SGPT) 77 U/L (14-59) Alkaline Phosphatase 144 U/L (46-116) Troponin I Quantitative < 0.017 ng/mL (0.000-0.055) Total Protein 8.0 g/dL (6.4-8.2) Albumin 2.9 g/dL (3.4-5.0) Albumin/Globulin Ratio 0.6 (1.0-1.7) Lipase 270 U/L (73-393) Influenza Type A Antigen Negative (NEGATIVE) Influenza Type B Antigen Negative (NEGATIVE) Urine Collection Type Unknown Urine Color Yellow Urine Clarity Clear Urine pH 8.5 (<5.0-8.0) Urine Specific [place] 1.015 (1.000-1.030) Urine Protein 30 mg/dL (NEG-TRACE) Urine Glucose (UA) Negative mg/dL (NEG) Urine Ketones (Stick) Negative mg/dL (NEG) Urine Blood Trace (NEG) Urine Nitrite Negative (NEG) Urine Bilirubin Negative (NEG) Urine Urobilinogen Dipstick 1.0 mg/dL (0.2 mg/dL) Urine Leukocyte Esterase Large (NEG) Urine RBC 0 /HPF (0-2) Urine WBC 11-20 /HPF (0-4) Urine Squamous Epithelial Cells Occ /LPF Urine Bacteria Moderate /HPF (0-FEW) Urine Mucus Slight /LPF C-Reactive Protein, Quantitative 102.0 mg/L (0-3.3) Test 04/25/20 08:12 04/25/20 11:36 Glucose (Fingerstick) 184 mg/dL (70-99) 245 mg/dL (70-99) Allergies: Coded Allergies: ceftriaxone (Verified Allergy, Severe, Anaphylaxis, 08/07/15) Medications: Current Medications Medications (Trade) Dose Ordered Sig/Alison Route PRN Reason Start Time Stop Time Status Last Admin Dose Admin Sodium Chloride 1,000 ml @ 1,000 mls/hr 1X ONCE IV 04/24/20 16:15 04/24/20 17:14 DC 04/24/20 16:26 Acetaminophen (Tylenol) 1,000 mg 1X ONCE PO 04/24/20 16:15 04/24/20 16:16 DC 04/24/20 16:26 Levofloxacin/ Dextrose 150 ml @ 100 mls/hr 1X ONCE IV 04/24/20 17:30 04/24/20 18:59 DC 04/24/20 18:32 Iohexol (Omnipaque 300 Mg/ml) 75 ml 1X ONCE IV 04/24/20 18:00 04/24/20 18:01 DC 04/24/20 18:07 Sodium Chloride 1,000 ml @ 1,000 mls/hr 1X ONCE IV 04/24/20 18:00 04/24/20 18:59 DC 04/24/20 18:32 Aspirin (Aspirin Chewable) 81 mg DAILY PO 04/25/20 11:00 04/25/20 11:21 Cetirizine HCl (ZyrTEC) 10 mg DAILY PO 04/25/20 11:00 04/25/20 11:27 Ferrous Sulfate (Feosol) 325 mg DAILYWBKFT PO 04/25/20 12:00 04/25/20 11:21 Furosemide (Lasix) 40 mg DAILY PO 04/25/20 11:00 04/25/20 11:27 Venlafaxine HCl (Effexor Xr) 187.5 mg DAILY PO 04/25/20 11:00 04/25/20 11:21 Ascorbic Acid (Vitamin C) 500 mg DAILY PO 04/25/20 11:00 04/25/20 11:21 Docusate Sodium (Colace) 100 mg BID PO 04/25/20 11:00 04/25/20 11:28 Polyethylene Glycol (miraLAX PACKET) 17 gm DAILY PO 04/25/20 11:00 04/25/20 11:28 Pyridoxine HCl (Vitamin B-6) 100 mg DAILY PO 04/25/20 11:00 04/25/20 11:21 Imaging: Imaging: CT A/P 04/24 Findings: Mild bibasilar lung atelectasis. No evidence of free air identified in the abdomen. Diffuse decreased attenuation noted in the liver likely hepatic steatosis. The spleen, adrenals grossly appears unremarkable. The gallbladder is mildly distended. The stomach is mildly distended. The visualized pancreas grossly appears unremarkable. The distal small bowel loops are mildly distended. Changes of probable right ileostomy and left colostomy changes identified. The appendix is not well-visualized. Feces and gas noted in the visualized colon. The bilateral kidneys enhance symmetrically. Minimal amount of fluid identified in the right paracolic gutter region. The coccyx is not visualized likely prior surgical changes.. There is probable ulcer identified in the right gluteal region extending to the right ischial tuberosity region. Moderate degenerative changes thoracal lumbar spine. Single lead baclofen pump identified in the lower thoracic spine level. IMPRESSION: 1. Mild distended small bowel loops in the lower small bowel region nonspecific could be partial small bowel obstruction. 2. Minimal amount of fluid identified in the right paracolic gutter region, nonspecific. 3. Hepatic steatosis. 4. There is probable ulcer identified in the right gluteal region extending to the right ischial tuberosity region. Consider follow-up MRI pelvis if osteomyelitis is considered. KUB 04/24 Evaluation of the small bowel is limited due to paucity of gas in the small bowel.. Feces and gas noted in the colon. Baclofen pump is identified with the wire projecting in the level of L2 or L3 vertebral level. The evaluation of distal aspect of the wire is limited due to bowel gas and due to body habitus. CXR 04/24 Impression: 1. Low lung volumes with mild linear bibasilar atelectasis. PE: GEN: NAD HEENT: Atraumatic, PERRL LUNGS: diminished anteriorly HEART: RRR ABD: NABS, soft, round, non-tender, left-sided colostomy w/ small pieces of dark (looks like iron) formed stool, right-sided urostomy EXTREMITY: contractures SKIN: No rashes, no jaundice NEURO/PSYCH: A & O 3 A/P: A/P: Neck/rib pain Fever, UTI Leukocytosis, microcytosis (chronic), mildly elevated LFTs, lactic acidosis (resolved) Abnormal CT report - mild distended small bowel loops in the lower small bowel region nonspecific, minimal amount of fluid identified in the right paracolic gutter region nonspecific, probable ulcer identified in the right gluteal region extending to the right ischial tuberosity region H/o reflux - currently not bothersome, reports normal past EGD CRC screen - none H/o constipation - controlled w/ Miralax. Hepatic steatosis H/o MS and sacral wound w/ colostomy and urostomy H/o COVID -- Unclear significance of SB findings per CT report - she's eating and stooling. She requests Miralax once daily (already ordered) + PRN dose (which I will add). Check iron profile for completeness. Since I have seen her, she was made NPO. Okay to eat per GI. BIANCA HAWTHORNE Apr 25, 2020 13:02
[2020-04-25] MEDS ORDERED: POLYETHYLENE GLYCOL 3350 17 GM PACKET. PO PRN (13:15)
[2020-04-25 13:22] LABS: PROTHROMBIN TIME PATIENT 16.5 SEC (11.7-14.0)
[2020-04-25] MEDS ORDERED: DEXTROSE 50% 25 GM / 50ML DISP.SYRIN. IV PRN (14:00)
[2020-04-25 14:01] LABS: BASO # 0.1 x10^3/uL (0.0-0.2); BASO % 1 % (0-3); EOS # 0.5 x10^3/uL (0.0-0.7); EOS % 4 % (0-3); HEMATOCRIT 36.2 % (36.0-47.0); HEMOGLOBIN 11.7 g/dL (12.0-15.5); LYMPH # 2.5 x10^3/uL (1.0-4.8); LYMPH % 24 % (24-48); MEAN CORPUSCULAR HEMOGLOBIN 25 pg (25-35); MEAN CORPUSCULAR HGB CONC 32 g/dL (31-37); MEAN CORPUSCULAR VOLUME 78 fL (79-100); MONO % 10 % (0-9); NEUT # 6.5 x10^3/uL (1.8-7.7); NEUT % 62 % (31-73); PLATELET COUNT 280 x10^3/uL (140-400); RED BLOOD COUNT 4.63 x10^6/uL (3.50-5.40); RED CELL DISTRIBUTION WIDTH 17.7 % (11.5-14.5); WHITE BLOOD COUNT 10.5 x10^3/uL (4.0-11.0)
[2020-04-25 14:04] LABS: D-DIMER 8.57 ug/mlFEU (0.00-0.50)
[2020-04-25] MEDS: ENOXAPARIN 40 MG/0.4 ML SYRINGE. SQ SCH (14:10)
[2020-04-25 15:00] VITALS: BP 130/58
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
--- NOTE | 2020-04-25 16:06 | NUR ---
SW following for discharge planning. Spoke with RN and reviewed chart. Pt room air, IV Zosyn, cardiac diet. Discharge plan is home, self-care. No anticipated SW needs on discharge. Addendum: 04/28/20 at 0908 by JENNY JIMÉNEZ SW Pt identified as BPCI. Discharge planners to follow, no further needs from this SW.
[2020-04-25] MEDS: PIPERACILLIN/TAZOBACTAM 3.375 GM in IV NORMAL SALINE 50ML 50 ML IV SCH (17:28)
[2020-04-25] MEDS: SENNOSIDES 8.6 MG TABLET PO SCH (17:28)
[2020-04-25] MEDS: INSULIN LISPRO 300 UNITS/3 ML VIAL. SQ SCH (17:29)
[2020-04-25 19:00] VITALS: BP 119/44
[2020-04-25] MEDS: ZINC SULFATE 220 MG CAPSULE. PO SCH (20:35)
[2020-04-25] MEDS: LACTOBACILLUS RHAMNOSUS GG 1 CAPSULE. PO SCH (20:35)
[2020-04-25] MEDS: ATORVASTATIN CALCIUM 20 MG TABLET PO SCH (20:35)
[2020-04-25] MEDS ORDERED: INSULIN LISPRO 300 UNITS/3 ML VIAL. SQ ONE (21:00)
[2020-04-25] MEDS ORDERED: NON FORMULARY ITEM (Melatonin 2 TAB) SL SCH (21:00)
[2020-04-25] MEDS: BENZOCAINE/MENTHOL LOZENGE. PO PRN (21:24)
[2020-04-25 22:48] VITALS: BP 133/56
[2020-04-26] MEDS: PIPERACILLIN/TAZOBACTAM 3.375 GM in IV NORMAL SALINE 50ML 50 ML IV SCH ×4 (00:20→17:04)
[2020-04-26] MEDS: IV NORMAL SALINE 1000ML BAG 1,000 ML IV SCH ×2 (00:20→08:39)
[2020-04-26 03:00] VITALS: BP 133/62
[2020-04-26 05:09] LABS: BASO # 0.1 x10^3/uL (0.0-0.2); BASO % 1 % (0-3); EOS # 0.5 x10^3/uL (0.0-0.7); EOS % 6 % (0-3); HEMATOCRIT 35.6 % (36.0-47.0); HEMOGLOBIN 11.4 g/dL (12.0-15.5); LYMPH # 2.1 x10^3/uL (1.0-4.8); LYMPH % 25 % (24-48); MEAN CORPUSCULAR HEMOGLOBIN 26 pg (25-35); MEAN CORPUSCULAR HGB CONC 32 g/dL (31-37); MEAN CORPUSCULAR VOLUME 80 fL (79-100); MONO # 0.8 x10^3/uL (0.0-1.1); MONO % 10 % (0-9); NEUT # 4.9 x10^3/uL (1.8-7.7); NEUT % 58 % (31-73); PLATELET COUNT 267 x10^3/uL (140-400); RED BLOOD COUNT 4.47 x10^6/uL (3.50-5.40); WHITE BLOOD COUNT 8.5 x10^3/uL (4.0-11.0)
[2020-04-26 05:44] LABS: ALBUMIN 2.4 g/dL (3.4-5.0); ALBUMIN/GLOBULIN RATIO 0.5 (1.0-1.7); CALCIUM 9.1 mg/dL (8.5-10.1); CREATININE 0.7 mg/dL (0.6-1.0); GFR 82.7; POTASSIUM 3.2 mmol/L (3.5-5.1); TOTAL BILIRUBIN 0.4 mg/dL (0.2-1.0); TOTAL PROTEIN 7.6 g/dL (6.4-8.2)
[2020-04-26 07:00] VITALS: BP 123/60
[2020-04-26] MEDS: MULTIVITAMIN with MINERAL TABLET. PO SCH (08:36)
[2020-04-26] MEDS: VENLAFAXINE XR 37.5 MG CAP.ER.24H. PO SCH (08:36)
[2020-04-26] MEDS: LACTOBACILLUS RHAMNOSUS GG 1 CAPSULE. PO SCH ×2 (08:36→20:27)
[2020-04-26] MEDS: POLYETHYLENE GLYCOL 3350 17 GM PACKET. PO SCH (08:36)
[2020-04-26] MEDS: ASPIRIN CHEWABLE 81 MG TABLET. PO SCH (08:36)
[2020-04-26] MEDS: FERROUS SULFATE 325 MG TABLET. PO SCH (08:37)
[2020-04-26] MEDS: DOCUSATE SODIUM 100 MG CAPSULE. PO SCH ×2 (08:37→20:27)
[2020-04-26] MEDS: PYRIDOXINE 50 MG TABLET. PO SCH (08:37)
[2020-04-26] MEDS: ASCORBIC ACID 500 MG TABLET PO SCH (08:37)
[2020-04-26] MEDS: FUROSEMIDE 40 MG TABLET. PO SCH (08:37)
[2020-04-26] MEDS: CETIRIZINE HCL 10 MG TABLET. PO SCH (08:37)
[2020-04-26] MEDS: INSULIN LISPRO 300 UNITS/3 ML VIAL. SQ SCH ×3 (08:39→17:03)
--- NOTE | 2020-04-26 10:21 | PDOC ---
PROGRESS NOTES Date of Service: DATE: 04/26/20 TIME: 10:21 Chief Complaint Chief Complaint VTE Prophylaxis Ordered VTE Prophylaxis Devices: Yes VTE Pharmacological Prophylaxi: Yes Assessment/Plan Assessment/Plan IMPRESSION: 1. acute SEPSIS 2. Mild distended small bowel loops in the lower small bowel region nonspecific // partial small bowel obstruction. 3. Minimal amount of fluid identified in the right paracolic gutter region, nonspecific. 4. Hepatic steatosis. 5. on ct ulcer identified in the right gluteal region extending to the right ischial tuberosity region. Consider follow-up MRI pelvis to exclude osteomyelitis 6. Acute pyelonephritis 7. DIABETES 8. Sacral decubitus ulcer status post flap 9. post left [id number]. post right-sided urostomy 10.COVID-19 12-20 11. Hypertension/ 12. hyperlipidemia 13. History of pneumonia 14. History of sacral osteomyelitis 15. History of nephrolithiasis; lithotripsy plan admit regular due to sepsis, need for iv antibiotics> 48 hrs blood and urine cultures ID consult GI CONSULT Emperic iv antibiotics, Start Zosyn. iv Follow-up labs and cultures Continue supportive care ortho consult procalcitonin sepsis protocol iv fluid support dvt prophylaxis accuchecks, ss insulin >100,000 CFU/ML GRAM NEGATIVE RODS on 04/26/20 at 0952 FINAL ID= [PROTEUS MIRABILIS] 1-16 39 min pt exam, chart review, > 50% of time spent with exam, chart review, pt care coordination Justifications for Admission Other Justification History of Present Illness History of Present Illness Identification/Chief Complaint Chief Complaint seen in er with possible pyelonephritis , sacral wound// 70 year old female presented to the ER by EMS from group home due to right side flank pain, abdominal pain and fever. tested positive for COVID-19 INFECTION on 03/24/20. Patient has MS, has urostomy and colostomy. // has fever with generalized weakness. hx baclofen pump on the right side. // last week when she was evaluated at , when they moved her, they pumped her right side of abdomen against the bed rail. Since she has right side abdominal pain in 2015 developed a large sacral decubitus ulcer and hospitalized at [facility] for osteomyelitis. At that time, she underwent a debridement and was transferred to [facility] where she completed a course of IV antibiotics. Past Medical History Past Medical History Past Medical History Past Medical History: Anemia, Constipation, Depression, Hypertension, CO, Pneumonia, UTI, Other Additional Past Medical Histor: multiple sclerosis, C. Diff, obesity, osteomyelitis Past Surgical History: Other Additional Past Surgical Histo: debreeding x 3, muscle flap repair x 2, Smoking Status: Never Smoker Alcohol Use: None Drug Use: None fhx HTN Cardiovascular: Hyperlipidemia Family History Family History: High Cholestrol, Hypertension Social History Smoke: No ALCOHOL: none Drugs: None Current Problem List Problem List Problems Medical Problems: (1) Flank pain Status: Acute (2) Multiple sclerosis Status: Acute (3) Partial small bowel obstruction Status: Acute (4) Pyelonephritis Status: Acute (5) Sepsis Status: Acute (6) UTI (urinary tract infection) Status: Acute Vitals Vitals Vital Signs Date Time Temp Pulse Resp B/P (MAP) Pulse Ox O2 Delivery O2 Flow Rate FiO2 04/26/20 07:00 97.0 83 20 123/60 (81) 96 Room Air 97.0 Physical Exam Physical Exam Constitutional: Well developed, well nourished, no acute distress, non-toxic appearance. [] HENT: Normocephalic, atraumatic, bilateral external ears normal, oropharynx moist, no oral exudates, nose normal. [] Eyes: PERRLA, EOMI, conjunctiva normal, no discharge. [] Neck: Normal range of motion, no tenderness, supple, no stridor. [] Cardiovascular: Sinus tachycardia, regular rhythm, no murmur [] Lungs & Thorax: Bilateral breath sounds clear to auscultation [] Abdomen: Bowel sounds normal, soft, There is right side flank tenderness to palpation, no masses, no pulsatile masses. [] Skin: Warm, dry, facial hot flush. sacral wound Back: No tenderness, RIGHT SIDE CVA tenderness. [] Extremities: No tenderness, no cyanosis, no clubbing, ROM intact, no edema. [] General: Alert, Oriented X3, No acute distress Heart: Regular rate, Normal S1, Normal S2, No murmurs Lungs: Clear Abdomen: Normal bowel sounds, Other (Urostomy and colostomy in place functioning) Extremities: No cyanosis Skin: No rashes Labs LABS History: Reason: FEVER / Spl. Instructions: / History: Comparison: August 07, 2015 Findings: Low lung volumes with mild linear bibasilar atelectasis. No consolidation. No pleural effusion. No pneumothorax. Impression: 1. Low lung volumes with mild linear bibasilar atelectasis. Electronically signed by: Parth Badillo DO (04/24/2020 4:27 PM) [facility] DICTATED and SIGNED BY: PARTH BADILLO DO Signed PATIENT: NAYAN RIVERA ACCOUNT: [id number] : 1950 LOCATION: ER AGE: 70 SEX: F EXAM STATUS: REG ER ORD. PHYSICIAN: BEBE CELESTIN DO REASON: right side abdominal pain, fever PROCEDURE: CT ABD PELV W/ IV CONTRST ONLY Examination: CT of the abdomen pelvis with IV contrast HISTORY: History of right-sided abdominal pain COMPARISON: None available TECHNIQUE: Axial CT images of the abdomen pelvis were performed with IV contrast. Coronal and sagittal reformats are performed. Exposure: One or more of the following individualized dose reduction techniques were utilized for this examination: 1. Automated exposure control 2. Adjustment of the mA and/or kV according to patient size 3. Use of iterative reconstruction technique Findings: Mild bibasilar lung atelectasis. No evidence of free air identified in the abdomen. Diffuse decreased attenuation noted in the liver likely hepatic steatosis. The spleen, adrenals grossly appears unremarkable. The gallbladder is mildly distended. The stomach is mildly distended. The visualized pancreas grossly appears unremarkable. The distal small bowel loops are mildly distended. Changes of probable right ileostomy and left colostomy changes identified. The appendix is not well-visualized. Feces and gas noted in the visualized colon. The bilateral kidneys enhance symmetrically. Minimal amount of fluid identified in the right paracolic gutter region. The coccyx is not visualized likely prior surgical changes.. There is probable ulcer identified in the right gluteal region extending to the right ischial tuberosity region. Moderate degenerative changes thoracal lumbar spine. Single lead baclofen pump identified in the lower thoracic spine level. IMPRESSION: 1. Mild distended small bowel loops in the lower small bowel region nonspecific could be partial small bowel obstruction. 2. Minimal amount of fluid identified in the right paracolic gutter region, nonspecific. 3. Hepatic steatosis. 4. There is probable ulcer identified in the right gluteal region extending to the right ischial tuberosity region. Consider follow-up MRI pelvis if osteomyelitis is considered. Electronically signed by: Kameron Fu MD (04/24/2020 6:30 PM) [id number] DICTATED and SIGNED BY: KAMERON FU MD DATE: 04/24/20 [id number] 0 Procedure Result GRAM STAIN Final Final GRAM NEGATIVE RODS:MODERATE GRAM POSITIVE COCCI:RARE SQUAMOUS EPI CELL:FEW PMN (WBCs):RARE Unless otherwise specified, Testing Performed by: [address] [address] For Inquires, the Physician may contact the Microbiology department at [phone] ANAEROBIC-AEROBIC CULTURE PENDING --------- --- DERED: URINE CULTURE Procedure Result URINE CULTURE Preliminary Preliminary >100,000 CFU/ML GRAM NEGATIVE RODS on 04/26/20 at 0952 FINAL ID= [PROTEUS MIRABILIS] Testing Performed by: [address] [id number] For Inquires, the Physician may contact the Microbiology department at [phone] PROTEUS MIRABILIS Unless otherwise specified, Testing Performed by: [address] [address] For Inquires, the Physician may contact the Microbiology department at [phone] --------- Procedure Result URINE CULTURE Preliminary Preliminary >100,000 CFU/ML [GRAM NEGATIVE RODS] on 04/26/20 at 0952 Testing Performed by: [address] [address] For Inquires, the Physician may contact the Microbiology department at [phone] GRAM NEGATIVE RODS Unless otherwise specified, Testing Performed by: [facility] [address] [place] [address] For Inquires, the Physician may contact the Microbiology department at [phone] Laboratory Tests Test 04/25/20 11:36 04/25/20 12:35 04/25/20 15:36 04/25/20 19:24 Glucose (Fingerstick) 245 mg/dL (70-99) 314 mg/dL (70-99) 272 mg/dL (70-99) White Blood Count 10.5 x10^3/uL (4.0-11.0) Red Blood Count 4.63 x10^6/uL (3.50-5.40) Hemoglobin 11.7 g/dL (12.0-15.5) Hematocrit 36.2 % (36.0-47.0) Mean Corpuscular Volume 78 fL (79-100) Mean Corpuscular Hemoglobin 25 pg (25-35) Mean Corpuscular Hemoglobin Concent 32 g/dL (31-37) Red Cell Distribution Width 17.7 % (11.5-14.5) Platelet Count 280 x10^3/uL (140-400) Neutrophils (%) (Auto) 62 % (31-73) Lymphocytes (%) (Auto) 24 % (24-48) Monocytes (%) (Auto) 10 % (0-9) Eosinophils (%) (Auto) 4 % (0-3) Basophils (%) (Auto) 1 % (0-3) Neutrophils # (Auto) 6.5 x10^3/uL (1.8-7.7) Lymphocytes # (Auto) 2.5 x10^3/uL (1.0-4.8) Monocytes # (Auto) 1.0 x10^3/uL (0.0-1.1) Eosinophils # (Auto) 0.5 x10^3/uL (0.0-0.7) Basophils # (Auto) 0.1 x10^3/uL (0.0-0.2) Prothrombin Time 16.5 SEC (11.7-14.0) Prothromb Time International Ratio 1.4 (0.8-1.1) Fibrinogen 664 mg/dL (200-440) D-Dimer (Estephania) 8.57 ug/mlFEU (0.00-0.50) Iron Level 44 ug/dL (50-170) Total Iron Binding Capacity 287 ug/dL (250-450) Iron Saturation 15 % (15-34) Test 04/26/20 04:30 White Blood Count 8.5 x10^3/uL (4.0-11.0) Red Blood Count 4.47 x10^6/uL (3.50-5.40) Hemoglobin 11.4 g/dL (12.0-15.5) Hematocrit 35.6 % (36.0-47.0) Mean Corpuscular Volume 80 fL (79-100) Mean Corpuscular Hemoglobin 26 pg (25-35) Mean Corpuscular Hemoglobin Concent 32 g/dL (31-37) Red Cell Distribution Width 18.0 % (11.5-14.5) Platelet Count 267 x10^3/uL (140-400) Neutrophils (%) (Auto) 58 % (31-73) Lymphocytes (%) (Auto) 25 % (24-48) Monocytes (%) (Auto) 10 % (0-9) Eosinophils (%) (Auto) 6 % (0-3) Basophils (%) (Auto) 1 % (0-3) Neutrophils # (Auto) 4.9 x10^3/uL (1.8-7.7) Lymphocytes # (Auto) 2.1 x10^3/uL (1.0-4.8) Monocytes # (Auto) 0.8 x10^3/uL (0.0-1.1) Eosinophils # (Auto) 0.5 x10^3/uL (0.0-0.7) Basophils # (Auto) 0.1 x10^3/uL (0.0-0.2) Sodium Level 140 mmol/L (136-145) Potassium Level 3.2 mmol/L (3.5-5.1) Chloride Level 105 mmol/L (98-107) Carbon Dioxide Level 25 mmol/L (21-32) Anion Gap 10 (6-14) Blood Urea Nitrogen 16 mg/dL (7-20) Creatinine 0.7 mg/dL (0.6-1.0) Estimated GFR (Cockcroft-Gault) 82.7 BUN/Creatinine Ratio 23 (6-20) Glucose Level 188 mg/dL (70-99) Calcium Level 9.1 mg/dL (8.5-10.1) Total Bilirubin 0.4 mg/dL (0.2-1.0) Aspartate Amino Transf (AST/SGOT) 46 U/L (15-37) Alanine Aminotransferase (ALT/SGPT) 59 U/L (14-59) Alkaline Phosphatase 117 U/L (46-116) Total Protein 7.6 g/dL (6.4-8.2) Albumin 2.4 g/dL (3.4-5.0) Albumin/Globulin Ratio 0.5 (1.0-1.7) Assessment and Plan Assessmemt and Plan Problems Medical Problems: (1) Flank pain Status: Acute (2) Multiple sclerosis Status: Acute (3) Partial small bowel obstruction Status: Acute (4) Pyelonephritis Status: Acute (5) Sepsis Status: Acute (6) UTI (urinary tract infection) Status: Acute Comment Review of Relevant I have reviewed the following items genoveva (where applicable) has been applied. Labs Laboratory Tests Test 04/24/20 16:14 04/24/20 16:46 04/24/20 16:53 04/25/20 03:30 White Blood Count 14.8 x10^3/uL (4.0-11.0) Red Blood Count 5.18 x10^6/uL (3.50-5.40) Hemoglobin 12.9 g/dL (12.0-15.5) Hematocrit 40.2 % (36.0-47.0) Mean Corpuscular Volume 78 fL (79-100) Mean Corpuscular Hemoglobin 25 pg (25-35) Mean Corpuscular Hemoglobin Concent 32 g/dL (31-37) Red Cell Distribution Width 17.7 % (11.5-14.5) Platelet Count 322 x10^3/uL (140-400) Neutrophils (%) (Auto) 73 % (31-73) Lymphocytes (%) (Auto) 16 % (24-48) Monocytes (%) (Auto) 9 % (0-9) Eosinophils (%) (Auto) 2 % (0-3) Basophils (%) (Auto) 1 % (0-3) Neutrophils # (Auto) 10.7 x10^3/uL (1.8-7.7) Lymphocytes # (Auto) 2.3 x10^3/uL (1.0-4.8) Monocytes # (Auto) 1.4 x10^3/uL (0.0-1.1) Eosinophils # (Auto) 0.3 x10^3/uL (0.0-0.7) Basophils # (Auto) 0.1 x10^3/uL (0.0-0.2) Sodium Level 136 mmol/L (136-145) Potassium Level 4.7 mmol/L (3.5-5.1) Chloride Level 99 mmol/L (98-107) Carbon Dioxide Level 24 mmol/L (21-32) Anion Gap 13 (6-14) Blood Urea Nitrogen 22 mg/dL (7-20) Creatinine 0.8 mg/dL (0.6-1.0) Estimated GFR (Cockcroft-Gault) 70.9 BUN/Creatinine Ratio 28 (6-20) Glucose Level 219 mg/dL (70-99) Lactic Acid Level 2.6 mmol/L (0.4-2.0) 1.5 mmol/L (0.4-2.0) Calcium Level 9.0 mg/dL (8.5-10.1) Total Bilirubin 0.5 mg/dL (0.2-1.0) Aspartate Amino Transf (AST/SGOT) 61 U/L (15-37) Alanine Aminotransferase (ALT/SGPT) 77 U/L (14-59) Alkaline Phosphatase 144 U/L (46-116) Troponin I Quantitative < 0.017 ng/mL (0.000-0.055) Total Protein 8.0 g/dL (6.4-8.2) Albumin 2.9 g/dL (3.4-5.0) Albumin/Globulin Ratio 0.6 (1.0-1.7) Lipase 270 U/L (73-393) Influenza Type A Antigen Negative (NEGATIVE) Influenza Type B Antigen Negative (NEGATIVE) Urine Collection Type Unknown Urine Color Yellow Urine Clarity Clear Urine pH 8.5 (<5.0-8.0) Urine Specific [place] 1.015 (1.000-1.030) Urine Protein 30 mg/dL (NEG-TRACE) Urine Glucose (UA) Negative mg/dL (NEG) Urine Ketones (Stick) Negative mg/dL (NEG) Urine Blood Trace (NEG) Urine Nitrite Negative (NEG) Urine Bilirubin Negative (NEG) Urine Urobilinogen Dipstick 1.0 mg/dL (0.2 mg/dL) Urine Leukocyte Esterase Large (NEG) Urine RBC 0 /HPF (0-2) Urine WBC 11-20 /HPF (0-4) Urine Squamous Epithelial Cells Occ /LPF Urine Bacteria Moderate /HPF (0-FEW) Urine Mucus Slight /LPF C-Reactive Protein, Quantitative 102.0 mg/L (0-3.3) Procalcitonin 0.19 ng/mL (0.00-0.10) Test 04/25/20 08:12 04/25/20 11:36 04/25/20 12:35 04/25/20 15:36 Glucose (Fingerstick) 184 mg/dL (70-99) 245 mg/dL (70-99) 314 mg/dL (70-99) White Blood Count 10.5 x10^3/uL (4.0-11.0) Red Blood Count 4.63 x10^6/uL (3.50-5.40) Hemoglobin 11.7 g/dL (12.0-15.5) Hematocrit 36.2 % (36.0-47.0) Mean Corpuscular Volume 78 fL (79-100) Mean Corpuscular Hemoglobin 25 pg (25-35) Mean Corpuscular Hemoglobin Concent 32 g/dL (31-37) Red Cell Distribution Width 17.7 % (11.5-14.5) Platelet Count 280 x10^3/uL (140-400) Neutrophils (%) (Auto) 62 % (31-73) Lymphocytes (%) (Auto) 24 % (24-48) Monocytes (%) (Auto) 10 % (0-9) Eosinophils (%) (Auto) 4 % (0-3) Basophils (%) (Auto) 1 % (0-3) Neutrophils # (Auto) 6.5 x10^3/uL (1.8-7.7) Lymphocytes # (Auto) 2.5 x10^3/uL (1.0-4.8) Monocytes # (Auto) 1.0 x10^3/uL (0.0-1.1) Eosinophils # (Auto) 0.5 x10^3/uL (0.0-0.7) Basophils # (Auto) 0.1 x10^3/uL (0.0-0.2) Prothrombin Time 16.5 SEC (11.7-14.0) Prothromb Time International Ratio 1.4 (0.8-1.1) Fibrinogen 664 mg/dL (200-440) D-Dimer (Estephania) 8.57 ug/mlFEU (0.00-0.50) Iron Level 44 ug/dL (50-170) Total Iron Binding Capacity 287 ug/dL (250-450) Iron Saturation 15 % (15-34) Test 04/25/20 19:24 04/26/20 04:30 Glucose (Fingerstick) 272 mg/dL (70-99) White Blood Count 8.5 x10^3/uL (4.0-11.0) Red Blood Count 4.47 x10^6/uL (3.50-5.40) Hemoglobin 11.4 g/dL (12.0-15.5) Hematocrit 35.6 % (36.0-47.0) Mean Corpuscular Volume 80 fL (79-100) Mean Corpuscular Hemoglobin 26 pg (25-35) Mean Corpuscular Hemoglobin Concent 32 g/dL (31-37) Red Cell Distribution Width 18.0 % (11.5-14.5) Platelet Count 267 x10^3/uL (140-400) Neutrophils (%) (Auto) 58 % (31-73) Lymphocytes (%) (Auto) 25 % (24-48) Monocytes (%) (Auto) 10 % (0-9) Eosinophils (%) (Auto) 6 % (0-3) Basophils (%) (Auto) 1 % (0-3) Neutrophils # (Auto) 4.9 x10^3/uL (1.8-7.7) Lymphocytes # (Auto) 2.1 x10^3/uL (1.0-4.8) Monocytes # (Auto) 0.8 x10^3/uL (0.0-1.1) Eosinophils # (Auto) 0.5 x10^3/uL (0.0-0.7) Basophils # (Auto) 0.1 x10^3/uL (0.0-0.2) Sodium Level 140 mmol/L (136-145) Potassium Level 3.2 mmol/L (3.5-5.1) Chloride Level 105 mmol/L (98-107) Carbon Dioxide Level 25 mmol/L (21-32) Anion Gap 10 (6-14) Blood Urea Nitrogen 16 mg/dL (7-20) Creatinine 0.7 mg/dL (0.6-1.0) Estimated GFR (Cockcroft-Gault) 82.7 BUN/Creatinine Ratio 23 (6-20) Glucose Level 188 mg/dL (70-99) Calcium Level 9.1 mg/dL (8.5-10.1) Total Bilirubin 0.4 mg/dL (0.2-1.0) Aspartate Amino Transf (AST/SGOT) 46 U/L (15-37) Alanine Aminotransferase (ALT/SGPT) 59 U/L (14-59) Alkaline Phosphatase 117 U/L (46-116) Total Protein 7.6 g/dL (6.4-8.2) Albumin 2.4 g/dL (3.4-5.0) Albumin/Globulin Ratio 0.5 (1.0-1.7) Laboratory Tests Test 04/25/20 11:36 04/25/20 12:35 04/25/20 15:36 04/25/20 19:24 Glucose (Fingerstick) 245 mg/dL (70-99) 314 mg/dL (70-99) 272 mg/dL (70-99) White Blood Count 10.5 x10^3/uL (4.0-11.0) Red Blood Count 4.63 x10^6/uL (3.50-5.40) Hemoglobin 11.7 g/dL (12.0-15.5) Hematocrit 36.2 % (36.0-47.0) Mean Corpuscular Volume 78 fL (79-100) Mean Corpuscular Hemoglobin 25 pg (25-35) Mean Corpuscular Hemoglobin Concent 32 g/dL (31-37) Red Cell Distribution Width 17.7 % (11.5-14.5) Platelet Count 280 x10^3/uL (140-400) Neutrophils (%) (Auto) 62 % (31-73) Lymphocytes (%) (Auto) 24 % (24-48) Monocytes (%) (Auto) 10 % (0-9) Eosinophils (%) (Auto) 4 % (0-3) Basophils (%) (Auto) 1 % (0-3) Neutrophils # (Auto) 6.5 x10^3/uL (1.8-7.7) Lymphocytes # (Auto) 2.5 x10^3/uL (1.0-4.8) Monocytes # (Auto) 1.0 x10^3/uL (0.0-1.1) Eosinophils # (Auto) 0.5 x10^3/uL (0.0-0.7) Basophils # (Auto) 0.1 x10^3/uL (0.0-0.2) Prothrombin Time 16.5 SEC (11.7-14.0) Prothromb Time International Ratio 1.4 (0.8-1.1) Fibrinogen 664 mg/dL (200-440) D-Dimer (Estephania) 8.57 ug/mlFEU (0.00-0.50) Iron Level 44 ug/dL (50-170) Total Iron Binding Capacity 287 ug/dL (250-450) Iron Saturation 15 % (15-34) Test 04/26/20 04:30 White Blood Count 8.5 x10^3/uL (4.0-11.0) Red Blood Count 4.47 x10^6/uL (3.50-5.40) Hemoglobin 11.4 g/dL (12.0-15.5) Hematocrit 35.6 % (36.0-47.0) Mean Corpuscular Volume 80 fL (79-100) Mean Corpuscular Hemoglobin 26 pg (25-35) Mean Corpuscular Hemoglobin Concent 32 g/dL (31-37) Red Cell Distribution Width 18.0 % (11.5-14.5) Platelet Count 267 x10^3/uL (140-400) Neutrophils (%) (Auto) 58 % (31-73) Lymphocytes (%) (Auto) 25 % (24-48) Monocytes (%) (Auto) 10 % (0-9) Eosinophils (%) (Auto) 6 % (0-3) Basophils (%) (Auto) 1 % (0-3) Neutrophils # (Auto) 4.9 x10^3/uL (1.8-7.7) Lymphocytes # (Auto) 2.1 x10^3/uL (1.0-4.8) Monocytes # (Auto) 0.8 x10^3/uL (0.0-1.1) Eosinophils # (Auto) 0.5 x10^3/uL (0.0-0.7) Basophils # (Auto) 0.1 x10^3/uL (0.0-0.2) Sodium Level 140 mmol/L (136-145) Potassium Level 3.2 mmol/L (3.5-5.1) Chloride Level 105 mmol/L (98-107) Carbon Dioxide Level 25 mmol/L (21-32) Anion Gap 10 (6-14) Blood Urea Nitrogen 16 mg/dL (7-20) Creatinine 0.7 mg/dL (0.6-1.0) Estimated GFR (Cockcroft-Gault) 82.7 BUN/Creatinine Ratio 23 (6-20) Glucose Level 188 mg/dL (70-99) Calcium Level 9.1 mg/dL (8.5-10.1) Total Bilirubin 0.4 mg/dL (0.2-1.0) Aspartate Amino Transf (AST/SGOT) 46 U/L (15-37) Alanine Aminotransferase (ALT/SGPT) 59 U/L (14-59) Alkaline Phosphatase 117 U/L (46-116) Total Protein 7.6 g/dL (6.4-8.2) Albumin 2.4 g/dL (3.4-5.0) Albumin/Globulin Ratio 0.5 (1.0-1.7) Microbiology 04/25/20 Blood Culture - Preliminary, Resulted NO GROWTH AFTER 1 DAY 04/24/20 Urine Culture - Preliminary, Resulted Medications Current Medications Sodium Chloride 1,000 ml @ 1,000 mls/hr 1X ONCE IV Last administered on 04/24/20at 16:26; Start 04/24/20 at 16:15; Stop 04/24/20 at 17:14; Status DC Acetaminophen (Tylenol) 1,000 mg 1X ONCE PO Last administered on 04/24/20at 16:26; Start 04/24/20 at 16:15; Stop 04/24/20 at 16:16; Status DC Levofloxacin/ Dextrose 150 ml @ 100 mls/hr 1X ONCE IV Last administered on 04/24/20at 18:32; Start 04/24/20 at 17:30; Stop 04/24/20 at 18:59; Status DC Iohexol (Omnipaque 300 Mg/ml) 75 ml 1X ONCE IV Last administered on 04/24/20at 18:07; Start 04/24/20 at 18:00; Stop 04/24/20 at 18:01; Status DC Info (CONTRAST GIVEN -- Rx MONITORING) 1 each PRN DAILY PRN MC SEE COMMENTS; Start 04/24/20 at 18:00; Stop 04/26/20 at 17:59 Morphine Sulfate (Morphine Sulfate) 4 mg 1X ONCE IV ; Start 04/24/20 at 18:00; Stop 04/24/20 at 18:01; Status DC Sodium Chloride 1,000 ml @ 1,000 mls/hr 1X ONCE IV Last administered on 04/24/20at 18:32; Start 04/24/20 at 18:00; Stop 04/24/20 at 18:59; Status DC Acetaminophen (Tylenol) 650 mg PRN Q6HRS PRN PO PAIN; Start 04/25/20 at 10:15; Stop 04/25/20 at 14:33; Status DC Aspirin (Aspirin Chewable) 81 mg DAILY PO Last administered on 04/26/20at 08:36; Start 04/25/20 at 11:00 Atorvastatin Calcium (Lipitor) 20 mg HS PO Last administered on 04/25/20at 20:35; Start 04/25/20 at 21:00 Cetirizine HCl (ZyrTEC) 10 mg DAILY PO Last administered on 04/26/20at 08:37; Start 04/25/20 at 11:00 Diphenhydramine HCl (Benadryl) 25 mg Q6HRS PO ; Start 04/25/20 at 12:00; Stop 04/25/20 at 11:01; Status DC Ferrous Sulfate (Feosol) 325 mg DAILYWBKFT PO Last administered on 04/26/20at 08:37; Start 04/25/20 at 12:00 Furosemide (Lasix) 40 mg DAILY PO Last administered on 04/26/20at 08:37; Start 04/25/20 at 11:00 Sennosides (Senna) 8.6 mg QEVNG PO Last administered on 04/25/20at 17:28; Start 04/25/20 at 18:00 Venlafaxine HCl (Effexor Xr) 187.5 mg DAILY PO Last administered on 04/26/20at 08:36; Start 04/25/20 at 11:00 Ascorbic Acid (Vitamin C) 500 mg DAILY PO Last administered on 04/26/20 08:37; Start 04/25/20 at 11:00 Docusate Sodium (Colace) 100 mg BID PO Last administered on 04/26/20at 08:37; Start 04/25/20 at 11:00 Non-Formulary Medication (Melatonin ) 2 tab QHS SL ; Start 04/25/20 at 21:00; Status UNV Multivitamins (Thera M Plus) 1 tab DAILY PO Last administered on 04/26/20at 08:36; Start 04/26/20 at 09:00 Ondansetron HCl (Zofran Odt) 4 mg PRN Q4HRS PRN PO NAUSEA/VOMITING; Start 04/25/20 at 10:45 Polyethylene Glycol (miraLAX PACKET) 17 gm DAILY PO Last administered on 04/26/20at 08:36; Start 04/25/20 at 11:00 Glycerin/ Hypromellose/ Polyethylene (Artificial Tears) 1 drop PRN QID PRN OU DRY EYE; Start 04/25/20 at 11:00 Pyridoxine HCl (Vitamin B-6) 100 mg DAILY PO Last administered on 04/26/20at 08:37; Start 04/25/20 at 11:00 Zinc Sulfate (Orazinc) 220 mg QHS PO Last administered on 04/25/20at 20:35; Start 04/25/20 at 21:00 Diphenhydramine HCl (Benadryl) 25 mg PRN Q6HRS PRN PO ITCHING; Start 04/25/20 at 11:00 Levofloxacin/ Dextrose 100 ml @ 100 mls/hr Q24H IV ; Start 04/25/20 at 13:00; Stop 04/25/20 at 15:12; Status DC Sodium Chloride 1,000 ml @ 1,560 mls/hr Q39M IV ; Start 04/25/20 at 12:15; Stop 04/25/20 at 13:17; Status DC Sodium Chloride 500 ml @ 1,000 mls/hr PRN Q30MIN PRN IV SEE COMMENTS; Start 04/25/20 at 12:15 Vancomycin HCl (Vanco Per Pharmacy) 1 each PRN DAILY PRN MC SEE COMMENTS Last administered on 04/25/20at 14:44; Start 04/25/20 at 12:15; Stop 04/25/20 at 15:13; Status DC Vancomycin HCl (Vanco Per Pharmacy) 1 each PRN DAILY PRN MC SEE COMMENTS; Start 04/25/20 at 12:30; Status UNV Sodium Chloride (Normal Saline Flush) 3 ml QSHIFT PRN IV AFTER MEDS AND BLOOD DRAWS; Start 04/25/20 at 12:30 Sodium Chloride 1,000 ml @ 100 mls/hr Q10H IV Last administered on 04/26/20at 08:39; Start 04/25/20 at 12:30 Ondansetron HCl (Zofran) 4 mg PRN Q4HRS PRN IV NAUSEA/VOMITING; Start 04/25/20 at 12:30 Acetaminophen (Tylenol) 650 mg PRN Q4HRS PRN PO TEMP OVER 100.4F OR MILD PAIN Last administered on 04/25/20at 21:24; Start 04/25/20 at 12:30 Acetaminophen (Tylenol Supp) 650 mg PRN Q4HRS PRN [place] TEMP OVER 100.4F OR MILD PAIN; Start 04/25/20 at 12:30 Al Hydroxide/Mg Hydroxide (Mylanta Plus Xs) 30 ml PRN DAILY PRN PO HEARTBURN / GAS; Start 04/25/20 at 12:30 Sodium Monofluorophosphate (Fleet Adult) 133 ml PRN DAILY PRN [place] CONSTIPATION; Start 04/25/20 at 12:30 Docusate Sodium (Colace) 100 mg PRN BID PRN PO HARD STOOLS; Start 04/25/20 at 12:30 Albuterol Sulfate (Ventolin Neb Soln) 2.5 mg PRN Q4HRS PRN NEB SHORTNESS OF BREATH; Start 04/25/20 at 12:30 Guaifenesin (Robitussin) 200 mg PRN Q4HRS PRN PO COUGH; Start 04/25/20 at 12:30 Lorazepam (Ativan) 0.5 mg PRN Q4HRS PRN PO ANXIETY / AGITATION; Start 04/25/20 at 12:30 Enoxaparin Sodium (Lovenox 40mg Syringe) 40 mg Q24H SQ Last administered on 04/25/20at 14:10; Start 04/25/20 at 13:00 Vancomycin HCl 2 gm/Sodium Chloride 500 ml @ 250 mls/hr 1X ONCE IV Last administered on 04/25/20at 14:09; Start 04/25/20 at 12:45; Stop 04/25/20 at 14:44; Status DC Polyethylene Glycol (miraLAX PACKET) 17 gm PRN DAILY PRN PO CONSTIPATION; Start 04/25/20 at 13:15 Insulin Human Lispro (HumaLOG) 0-5 UNITS TIDWMEALS SQ Last administered on 04/26/20at 08:39; Start 04/25/20 at 17:00 Dextrose (Dextrose 50%-Water Syringe) 12.5 gm PRN Q15MIN PRN IV SEE COMMENTS; Start 04/25/20 at 14:00 Lactobacillus Rhamnosus (Culturelle) 1 cap BID PO Last administered on 04/26/20at 08:36; Start 04/25/20 at 21:00 Vancomycin HCl 1.25 gm/Sodium Chloride 250 ml @ 167 mls/hr Q24H IV ; Start 04/26/20 at 14:00; Stop 04/25/20 at 15:12; Status DC Vancomycin HCl (Vancomycin Trough Level) 1 each 1X ONCE MC ; Start 04/27/20 at 13:30; Stop 04/25/20 at 15:13; Status DC Piperacillin Sod/ Tazobactam Sod 3.375 gm/Sodium Chloride 50 ml @ 100 mls/hr Q6HRS IV Last administered on 04/26/20at 05:24; Start 04/25/20 at 17:00 Insulin Human Lispro (HumaLOG) 4 units 1X ONCE SQ Last administered on 04/25/20at 20:39; Start 04/25/20 at 21:00; Stop 04/25/20 at 21:01; Status DC Throat Lozenges (Cepacol Sore Throat Lozenge) 1 jose a PRN Q2HRS PRN PO SORE THROAT Last administered on 04/25/20at 21:24; Start 04/25/20 at 21:00 Active Scripts Active Reported Zofran (Ondansetron Hcl) 4 Mg Tablet 1 Tab PO Q4HRS PRN Zinc Sulfate 220 Mg Tablet 1 Tab PO QHS 30 Days Pyridoxine HCl (Pyridoxine HCl (Vitamin B6)) 25 Mg Tablet 100 Mg PO QAM Venlafaxine Hcl 75 Mg Tablet 187.5 Mg PO DAILY Systane Ultra 0.4-0.3% Eye Drp (Propylene Glycol/Peg 400) 10 Ml Drops 1 Drop EACHEYE QID PRN Senna (Sennosides) 8.6 Mg Tablet 8.6 Mg PO QEVNG Multi Vitamin Daily (Multivitamin) 1 Each Tablet 1 Tab PO DAILY 30 Days Melatonin 5 Mg Tab.subl 2 Tab SL QHS 30 Days Cetirizine Hcl 10 Mg Tablet 1 Tab PO DAILY Benadryl (Diphenhydramine Hcl) 25 Mg Capsule 25 Mg PO Q6HRS Atorvastatin Calcium 20 Mg Tablet 20 Mg PO HS Tylenol (Acetaminophen) 325 Mg Tablet 2 Tab PO PRN Q6HRS PRN Vitamin C (Ascorbic Acid) 500 Mg Capsule.er 500 Mg PO DAILY Polyethylene Glycol (Polyethylene Glycol 8000) 500 Gm Powder 17 Gm PO DAILY Furosemide 40 Mg Tablet 1 Tab PO DAILY Ferrousul (Ferrous Sulfate) 325 Mg Tablet 325 Mg PO DAILY Colace Clear (Docusate Sodium) 50 Mg Capsule 100 Mg PO BID Clotrimazole Af (Clotrimazole) 30 Gm Cream..g. 30 Gm TP Bisacodyl 5 Mg Tablet.dr 5 Mg PO PRN DAILY PRN Aspirin 81 Mg Tab.chew 1 Tab PO DAILY Vitals/I & O Vital Sign - Last 24 Hours 04/25/20 04/25/20 04/25/20 04/25/20 11:00 15:00 19:00 20:00 Temp 97.9 97.2 98.0 97.9 97.2 98.0 Pulse 95 96 109 Resp 20 29 17 B/P (MAP) 111/60 (77) 130/58 (82) 119/44 (69) Pulse Ox 94 97 97 O2 Delivery Room Air Room Air Room Air Room Air 04/25/20 04/26/20 04/26/20 22:48 03:00 07:00 Temp 97.9 97.6 97.0 97.9 97.6 97.0 Pulse 121 87 83 Resp 19 18 20 B/P (MAP) 133/56 (81) 133/62 (85) 123/60 (81) Pulse Ox 95 98 96 O2 Delivery Room Air Room Air Room Air Intake and Output0 04/25/20 04/25/20 04/26/20 15:00 23:00 07:00 Intake Total 800 ml 550 ml Output Total 2100 ml 1900 ml Balance 800 ml -1550 ml -1900 ml Justicifation of Admission Dx: Justifications for Admission: Justification of Admission Dx: Yes Sepsis: Isolation Indicated Altered Mental Status: Altered Mental Status KOFI DIXON MD Apr 26, 2020 10:21
[2020-04-26 11:09] VITALS: BP 126/59
--- NOTE | 2020-04-26 11:27 | PDOC ---
Infectious Disease Note Subjective: Subjective pt feels better Vital Signs: Vital Signs Vital Signs Date Time Temp Pulse Resp B/P (MAP) Pulse Ox O2 Delivery O2 Flow Rate FiO2 04/26/20 11:09 98.1 97 20 126/59 (81) 94 Room Air 98.1 Physical Exam: PHYSICAL EXAM General: Alert, Oriented X3 HEENT: Atraumatic, EOMI, Mucous membr. moist/pink Lungs: Clear to auscultation Heart: Regular rate, Normal S1, Normal S2, No murmurs Abdomen: Normal bowel sounds, Other (Urostomy and colostomy in place functioning) Extremities: No cyanosis Skin: No rashes Neuro: Other (Alert awake oriented x3 multiple contractures, lower extremity weakness at baseline) Medications: Inpatient Meds: Current Medications Medications (Trade) Dose Ordered Sig/Alison Start Time Stop Time Status Last Admin Dose Admin Acetaminophen (Tylenol Supp) 650 mg PRN Q4HRS PRN 04/25/20 12:30 Acetaminophen (Tylenol) 650 mg PRN Q4HRS PRN 04/25/20 12:30 04/25/20 21:24 650 MG Al Hydroxide/Mg Hydroxide (Mylanta Plus Xs) 30 ml PRN DAILY PRN 04/25/20 12:30 Albuterol Sulfate (Ventolin Neb Soln) 2.5 mg PRN Q4HRS PRN 04/25/20 12:30 Ascorbic Acid (Vitamin C) 500 mg DAILY 04/25/20 11:00 04/26/20 08:37 500 MG Aspirin (Aspirin Chewable) 81 mg DAILY 04/25/20 11:00 04/26/20 08:36 81 MG Atorvastatin Calcium (Lipitor) 20 mg HS 04/25/20 21:00 04/25/20 20:35 20 MG Cetirizine HCl (ZyrTEC) 10 mg DAILY 04/25/20 11:00 04/26/20 08:37 10 MG Dextrose (Dextrose 50%-Water Syringe) 12.5 gm PRN Q15MIN PRN 04/25/20 14:00 Diphenhydramine HCl (Benadryl) 25 mg PRN Q6HRS PRN 04/25/20 11:00 Docusate Sodium (Colace) 100 mg PRN BID PRN 04/25/20 12:30 Enoxaparin Sodium (Lovenox 40mg Syringe) 40 mg Q24H 04/25/20 13:00 04/25/20 14:10 40 MG Ferrous Sulfate (Feosol) 325 mg DAILYWBKFT 04/25/20 12:00 04/26/20 08:37 325 MG Furosemide (Lasix) 40 mg DAILY 04/25/20 11:00 04/26/20 08:37 40 MG Glycerin/ Hypromellose/ Polyethylene (Artificial Tears) 1 drop PRN QID PRN 04/25/20 11:00 Guaifenesin (Robitussin) 200 mg PRN Q4HRS PRN 04/25/20 12:30 Info (CONTRAST GIVEN -- Rx MONITORING) 1 each PRN DAILY PRN 04/24/20 18:00 04/26/20 17:59 Insulin Human Lispro (HumaLOG) 4 units 1X ONCE 04/25/20 21:00 04/25/20 21:01 DC 04/25/20 20:39 4 UNITS Iohexol (Omnipaque 300 Mg/ml) 75 ml 1X ONCE 04/24/20 18:00 04/24/20 18:01 DC 04/24/20 18:07 75 ML Lactobacillus Rhamnosus (Culturelle) 1 cap BID 04/25/20 21:00 04/26/20 08:36 1 CAP Levofloxacin/ Dextrose 100 ml @ 100 mls/hr Q24H 04/25/20 13:00 04/25/20 15:12 DC Lorazepam (Ativan) 0.5 mg PRN Q4HRS PRN 04/25/20 12:30 Morphine Sulfate (Morphine Sulfate) 4 mg 1X ONCE 04/24/20 18:00 04/24/20 18:01 DC Multivitamins (Thera M Plus) 1 tab DAILY 04/26/20 09:00 04/26/20 08:36 1 TAB Non-Formulary Medication (Melatonin ) 2 tab QHS 04/25/20 21:00 UNV Ondansetron HCl (Zofran Odt) 4 mg PRN Q4HRS PRN 04/25/20 10:45 Ondansetron HCl (Zofran) 4 mg PRN Q4HRS PRN 04/25/20 12:30 Piperacillin Sod/ Tazobactam Sod 3.375 gm/Sodium Chloride 50 ml @ 100 mls/hr Q6HRS 04/25/20 17:00 04/26/20 05:24 100 MLS/HR Polyethylene Glycol (miraLAX PACKET) 17 gm PRN DAILY PRN 04/25/20 13:15 Pyridoxine HCl (Vitamin B-6) 100 mg DAILY 04/25/20 11:00 04/26/20 08:37 100 MG Sennosides (Senna) 8.6 mg QEVNG 04/25/20 18:00 04/25/20 17:28 8.6 MG Sodium Monofluorophosphate (Fleet Adult) 133 ml PRN DAILY PRN 04/25/20 12:30 Sodium Chloride 1,000 ml @ 100 mls/hr Q10H 04/25/20 12:30 04/26/20 08:39 100 MLS/HR Sodium Chloride (Normal Saline Flush) 3 ml QSHIFT PRN 04/25/20 12:30 Throat Lozenges (Cepacol Sore Throat Lozenge) 1 sharan PRN Q2HRS PRN 04/25/20 21:00 04/25/20 21:24 1 SHARAN Vancomycin HCl (Vanco Per Pharmacy) 1 each PRN DAILY PRN 04/25/20 12:30 UNV Vancomycin HCl (Vancomycin Trough Level) 1 each 1X ONCE 04/27/20 13:30 04/25/20 15:13 DC Vancomycin HCl 1.25 gm/Sodium Chloride 250 ml @ 167 mls/hr Q24H 04/26/20 14:00 04/25/20 15:12 DC Vancomycin HCl 2 gm/Sodium Chloride 500 ml @ 250 mls/hr 1X ONCE 04/25/20 12:45 04/25/20 14:44 DC 04/25/20 14:09 250 MLS/HR Venlafaxine HCl (Effexor Xr) 187.5 mg DAILY 04/25/20 11:00 04/26/20 08:36 187.5 MG Zinc Sulfate (Orazinc) 220 mg QHS 04/25/20 21:00 04/25/20 20:35 220 MG Labs: Lab Laboratory Tests Test 04/25/20 11:36 04/25/20 12:35 04/25/20 15:36 04/25/20 19:24 Glucose (Fingerstick) 245 mg/dL (70-99) 314 mg/dL (70-99) 272 mg/dL (70-99) White Blood Count 10.5 x10^3/uL (4.0-11.0) Red Blood Count 4.63 x10^6/uL (3.50-5.40) Hemoglobin 11.7 g/dL (12.0-15.5) Hematocrit 36.2 % (36.0-47.0) Mean Corpuscular Volume 78 fL (79-100) Mean Corpuscular Hemoglobin 25 pg (25-35) Mean Corpuscular Hemoglobin Concent 32 g/dL (31-37) Red Cell Distribution Width 17.7 % (11.5-14.5) Platelet Count 280 x10^3/uL (140-400) Neutrophils (%) (Auto) 62 % (31-73) Lymphocytes (%) (Auto) 24 % (24-48) Monocytes (%) (Auto) 10 % (0-9) Eosinophils (%) (Auto) 4 % (0-3) Basophils (%) (Auto) 1 % (0-3) Neutrophils # (Auto) 6.5 x10^3/uL (1.8-7.7) Lymphocytes # (Auto) 2.5 x10^3/uL (1.0-4.8) Monocytes # (Auto) 1.0 x10^3/uL (0.0-1.1) Eosinophils # (Auto) 0.5 x10^3/uL (0.0-0.7) Basophils # (Auto) 0.1 x10^3/uL (0.0-0.2) Prothrombin Time 16.5 SEC (11.7-14.0) Prothromb Time International Ratio 1.4 (0.8-1.1) Fibrinogen 664 mg/dL (200-440) D-Dimer (Estephania) 8.57 ug/mlFEU (0.00-0.50) Iron Level 44 ug/dL (50-170) Total Iron Binding Capacity 287 ug/dL (250-450) Iron Saturation 15 % (15-34) Test 04/26/20 04:30 White Blood Count 8.5 x10^3/uL (4.0-11.0) Red Blood Count 4.47 x10^6/uL (3.50-5.40) Hemoglobin 11.4 g/dL (12.0-15.5) Hematocrit 35.6 % (36.0-47.0) Mean Corpuscular Volume 80 fL (79-100) Mean Corpuscular Hemoglobin 26 pg (25-35) Mean Corpuscular Hemoglobin Concent 32 g/dL (31-37) Red Cell Distribution Width 18.0 % (11.5-14.5) Platelet Count 267 x10^3/uL (140-400) Neutrophils (%) (Auto) 58 % (31-73) Lymphocytes (%) (Auto) 25 % (24-48) Monocytes (%) (Auto) 10 % (0-9) Eosinophils (%) (Auto) 6 % (0-3) Basophils (%) (Auto) 1 % (0-3) Neutrophils # (Auto) 4.9 x10^3/uL (1.8-7.7) Lymphocytes # (Auto) 2.1 x10^3/uL (1.0-4.8) Monocytes # (Auto) 0.8 x10^3/uL (0.0-1.1) Eosinophils # (Auto) 0.5 x10^3/uL (0.0-0.7) Basophils # (Auto) 0.1 x10^3/uL (0.0-0.2) Sodium Level 140 mmol/L (136-145) Potassium Level 3.2 mmol/L (3.5-5.1) Chloride Level 105 mmol/L (98-107) Carbon Dioxide Level 25 mmol/L (21-32) Anion Gap 10 (6-14) Blood Urea Nitrogen 16 mg/dL (7-20) Creatinine 0.7 mg/dL (0.6-1.0) Estimated GFR (Cockcroft-Gault) 82.7 BUN/Creatinine Ratio 23 (6-20) Glucose Level 188 mg/dL (70-99) Calcium Level 9.1 mg/dL (8.5-10.1) Total Bilirubin 0.4 mg/dL (0.2-1.0) Aspartate Amino Transf (AST/SGOT) 46 U/L (15-37) Alanine Aminotransferase (ALT/SGPT) 59 U/L (14-59) Alkaline Phosphatase 117 U/L (46-116) Total Protein 7.6 g/dL (6.4-8.2) Albumin 2.4 g/dL (3.4-5.0) Albumin/Globulin Ratio 0.5 (1.0-1.7) Objective: Assessment: Fever UTI Leukocytosis and lactic acidosis Neck/rib pain History of multiple sclerosis Sacral decubitus ulcer status post flap Status post left colostomy Status post right-sided urostomy History of COVID-19 last month Hypertension/hyperlipidemia History of pneumonia History of sacral osteomyelitis History of nephrolithiasis; lithotripsy Status post baclofen pump History of hysterectomy History of allergies to ceftriaxone with anaphylaxis; Patient has tolerated penicillin, Unasyn, Augmentin well Plan: Plan of Care Cont Zosyn. f/u UC Follow-up labs and cultures Continue supportive care Continue local wound care VENU HERNADEZ MD Apr 26, 2020 11:27
[2020-04-26] MEDS: ENOXAPARIN 40 MG/0.4 ML SYRINGE. SQ SCH (12:08)
[2020-04-26] MEDS ORDERED: VANCOMYCIN 1.25 GM in IV NORMAL SALINE 250ML 250 ML IV SCH (14:00)
[2020-04-26] MEDS ORDERED: MAGNESIUM SULFATE 2GM 50 ML IV SCH (14:15)
[2020-04-26] MEDS ORDERED: POTASSIUM BICARB 20 MEQ EFFERVESCENT TABLET. PO SCH (14:15)
[2020-04-26] MEDS ORDERED: POTASSIUM BICARB 20 MEQ EFFERVESCENT TABLET. FT ONE (14:15)
[2020-04-26] MEDS ORDERED: POTASSIUM BICARB 10 MEQ EFFERVESCENT TABLET. FT ONE (14:15)
[2020-04-26] MEDS ORDERED: ELECTROLYTE (NON-ICU) PROTOCOL. MC PRN (14:15)
[2020-04-26 15:29] VITALS: BP 130/54
[2020-04-26] MEDS: SENNOSIDES 8.6 MG TABLET PO SCH (17:02)
--- NOTE | 2020-04-26 18:35 | EKG ---
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
[2020-04-26 19:00] VITALS: BP 119/43
[2020-04-26] MEDS: ZINC SULFATE 220 MG CAPSULE. PO SCH (20:27)
[2020-04-26] MEDS: ATORVASTATIN CALCIUM 20 MG TABLET PO SCH (20:27)
[2020-04-26] MEDS ORDERED: POTASSIUM & SODIUM PHOSPHATES PACKET. PO SCH (21:00)
[2020-04-26 22:54] VITALS: BP 138/57
[2020-04-27] MEDS: BENZOCAINE/MENTHOL LOZENGE. PO PRN (00:32)
[2020-04-27] MEDS: IV NORMAL SALINE 1000ML BAG 1,000 ML IV SCH ×3 (00:32→14:30)
[2020-04-27] MEDS: PIPERACILLIN/TAZOBACTAM 3.375 GM in IV NORMAL SALINE 50ML 50 ML IV SCH ×4 (00:32→18:23)
[2020-04-27 02:52] VITALS: BP 122/40
[2020-04-27 04:56] LABS: CREATININE 0.6 mg/dL (0.6-1.0); GFR 98.8; PHOSPHORUS 2.6 mg/dL (2.6-4.7); POTASSIUM 3.3 mmol/L (3.5-5.1)
[2020-04-27 05:42] LABS: HEMOGLOBIN A1C 9.3 % (4.8-5.6)
--- NOTE | 2020-04-27 07:49 | PDOC ---
Infectious Disease Note Subjective: Subjective pt feels better Vital Signs: Vital Signs Vital Signs Date Time Temp Pulse Resp B/P (MAP) Pulse Ox O2 Delivery O2 Flow Rate FiO2 04/27/20 02:52 97.6 103 18 122/40 (67) 95 Room Air 97.6 Physical Exam: PHYSICAL EXAM Constitutional: Well developed, well nourished, no acute distress, non-toxic appearance. [] HENT: Normocephalic, atraumatic, bilateral external ears normal, oropharynx moist, no oral exudates, nose normal. [] Eyes: PERRLA, EOMI, conjunctiva normal, no discharge. [] Neck: Normal range of motion, no tenderness, supple, no stridor. [] Cardiovascular: Sinus tachycardia, regular rhythm, no murmur [] Lungs & Thorax: Bilateral breath sounds clear to auscultation [] Abdomen: Bowel sounds normal, soft, There is right side flank tenderness to palpation, no masses, no pulsatile masses. [] Skin: Warm, dry, facial hot flush. sacral wound Back: No tenderness, RIGHT SIDE CVA tenderness. [] Extremities: No tenderness, no cyanosis, no clubbing, ROM intact, no edema. [] Medications: Inpatient Meds: Current Medications Medications (Trade) Dose Ordered Sig/Alison Start Time Stop Time Status Last Admin Dose Admin Acetaminophen (Tylenol Supp) 650 mg PRN Q4HRS PRN 04/25/20 12:30 Acetaminophen (Tylenol) 650 mg PRN Q4HRS PRN 04/25/20 12:30 04/25/20 21:24 650 MG Al Hydroxide/Mg Hydroxide (Mylanta Plus Xs) 30 ml PRN DAILY PRN 04/25/20 12:30 Albuterol Sulfate (Ventolin Neb Soln) 2.5 mg PRN Q4HRS PRN 04/25/20 12:30 Ascorbic Acid (Vitamin C) 500 mg DAILY 04/25/20 11:00 04/26/20 08:37 500 MG Aspirin (Aspirin Chewable) 81 mg DAILY 04/25/20 11:00 04/26/20 08:36 81 MG Atorvastatin Calcium (Lipitor) 20 mg HS 04/25/20 21:00 04/26/20 20:27 20 MG Cetirizine HCl (ZyrTEC) 10 mg DAILY 04/25/20 11:00 04/26/20 08:37 10 MG Dextrose (Dextrose 50%-Water Syringe) 12.5 gm PRN Q15MIN PRN 04/25/20 14:00 Diphenhydramine HCl (Benadryl) 25 mg PRN Q6HRS PRN 04/25/20 11:00 Docusate Sodium (Colace) 100 mg PRN BID PRN 04/25/20 12:30 Enoxaparin Sodium (Lovenox 40mg Syringe) 40 mg Q24H 04/25/20 13:00 04/26/20 12:08 40 MG Ferrous Sulfate (Feosol) 325 mg DAILYWBKFT 04/25/20 12:00 04/26/20 08:37 325 MG Furosemide (Lasix) 40 mg DAILY 04/25/20 11:00 04/26/20 08:37 40 MG Glycerin/ Hypromellose/ Polyethylene (Artificial Tears) 1 drop PRN QID PRN 04/25/20 11:00 Guaifenesin (Robitussin) 200 mg PRN Q4HRS PRN 04/25/20 12:30 Info (CONTRAST GIVEN -- Rx MONITORING) 1 each PRN DAILY PRN 04/24/20 18:00 04/26/20 17:59 DC Info (Non-Icu Electrolyte Protocol) 1 ea CONT PRN PRN 04/26/20 14:15 Insulin Human Lispro (HumaLOG) 4 units 1X ONCE 04/25/20 21:00 04/25/20 21:01 DC 04/25/20 20:39 4 UNITS Iohexol (Omnipaque 300 Mg/ml) 75 ml 1X ONCE 04/24/20 18:00 04/24/20 18:01 DC 04/24/20 18:07 75 ML Lactobacillus Rhamnosus (Culturelle) 1 cap BID 04/25/20 21:00 04/26/20 20:27 1 CAP Levofloxacin/ Dextrose 100 ml @ 100 mls/hr Q24H 04/25/20 13:00 04/25/20 15:12 DC Lorazepam (Ativan) 0.5 mg PRN Q4HRS PRN 04/25/20 12:30 Magnesium Sulfate 50 ml @ 25 mls/hr Q24H 04/26/20 14:15 04/28/20 16:14 UNV Morphine Sulfate (Morphine Sulfate) 4 mg 1X ONCE 04/24/20 18:00 04/24/20 18:01 DC Multivitamins (Thera M Plus) 1 tab DAILY 04/26/20 09:00 04/26/20 08:36 1 TAB Non-Formulary Medication (Melatonin ) 2 tab QHS 04/25/20 21:00 UNV Ondansetron HCl (Zofran Odt) 4 mg PRN Q4HRS PRN 04/25/20 10:45 Ondansetron HCl (Zofran) 4 mg PRN Q4HRS PRN 04/25/20 12:30 Piperacillin Sod/ Tazobactam Sod 3.375 gm/Sodium Chloride 50 ml @ 100 mls/hr Q6HRS 04/25/20 17:00 04/27/20 05:59 100 MLS/HR Polyethylene Glycol (miraLAX PACKET) 17 gm PRN DAILY PRN 04/25/20 13:15 Potassium Bicarbonate (Potassium Effervescent Tablet) 40 meq Q4H 04/26/20 14:15 04/26/20 18:16 UNV Potassium Phos/ Sodium Phos (Phos-Nak) 1 pkt BID 04/26/20 21:00 04/27/20 09:01 UNV Pyridoxine HCl (Vitamin B-6) 100 mg DAILY 04/25/20 11:00 04/26/20 08:37 100 MG Sennosides (Senna) 8.6 mg QEVNG 04/25/20 18:00 04/26/20 17:02 8.6 MG Sodium Monofluorophosphate (Fleet Adult) 133 ml PRN DAILY PRN 04/25/20 12:30 Sodium Chloride 1,000 ml @ 100 mls/hr Q10H 04/25/20 12:30 04/27/20 00:32 100 MLS/HR Sodium Chloride (Normal Saline Flush) 3 ml QSHIFT PRN 04/25/20 12:30 Throat Lozenges (Cepacol Sore Throat Lozenge) 1 sharan PRN Q2HRS PRN 04/25/20 21:00 04/27/20 00:32 1 SHARAN Vancomycin HCl (Vanco Per Pharmacy) 1 each PRN DAILY PRN 04/25/20 12:30 UNV Vancomycin HCl (Vancomycin Trough Level) 1 each 1X ONCE 04/27/20 13:30 04/25/20 15:13 DC Vancomycin HCl 1.25 gm/Sodium Chloride 250 ml @ 167 mls/hr Q24H 04/26/20 14:00 04/25/20 15:12 DC Vancomycin HCl 2 gm/Sodium Chloride 500 ml @ 250 mls/hr 1X ONCE 04/25/20 12:45 04/25/20 14:44 DC 04/25/20 14:09 250 MLS/HR Venlafaxine HCl (Effexor Xr) 187.5 mg DAILY 04/25/20 11:00 04/26/20 08:36 187.5 MG Zinc Sulfate (Orazinc) 220 mg QHS 04/25/20 21:00 04/26/20 20:27 220 MG Labs: Lab Laboratory Tests Test 04/26/20 11:36 04/26/20 16:31 04/26/20 19:06 04/27/20 04:00 Glucose (Fingerstick) 369 mg/dL (70-99) 244 mg/dL (70-99) 288 mg/dL (70-99) Sodium Level 143 mmol/L (136-145) Potassium Level 3.3 mmol/L (3.5-5.1) Chloride Level 107 mmol/L (98-107) Carbon Dioxide Level 24 mmol/L (21-32) Anion Gap 12 (6-14) Blood Urea Nitrogen 9 mg/dL (7-20) Creatinine 0.6 mg/dL (0.6-1.0) Estimated GFR (Cockcroft-Gault) 98.8 Glucose Level 131 mg/dL (70-99) Calcium Level 8.0 mg/dL (8.5-10.1) Phosphorus Level 2.6 mg/dL (2.6-4.7) Objective: Assessment: Fever Proteus mirabilis UTI Leukocytosis and lactic acidosis Neck/rib pain History of multiple sclerosis Sacral decubitus ulcer status post flap Status post left colostomy Status post right-sided urostomy History of COVID-19 last month Hypertension/hyperlipidemia History of pneumonia History of sacral osteomyelitis History of nephrolithiasis; lithotripsy Status post baclofen pump History of hysterectomy History of allergies to ceftriaxone with anaphylaxis; Patient has tolerated penicillin, Unasyn, Augmentin well Plan: Plan of Care F/U GNR and GPC from sacral wound, Cont Zosyn. for now ,will deescalate soon wound care as directed Follow-up labs and cultures Continue supportive care Continue local wound care d/w VENU Chan MD Apr 27, 2020 07:48
[2020-04-27 07:59] VITALS: BP 130/47
[2020-04-27] MEDS: INSULIN LISPRO 300 UNITS/3 ML VIAL. SQ SCH ×3 (08:00→18:22)
[2020-04-27] MEDS: FERROUS SULFATE 325 MG TABLET. PO SCH (09:53)
[2020-04-27] MEDS: CETIRIZINE HCL 10 MG TABLET. PO SCH (09:53)
[2020-04-27] MEDS: VENLAFAXINE XR 37.5 MG CAP.ER.24H. PO SCH (09:53)
[2020-04-27] MEDS: DOCUSATE SODIUM 100 MG CAPSULE. PO SCH ×2 (09:53→20:37)
[2020-04-27] MEDS: ASPIRIN CHEWABLE 81 MG TABLET. PO SCH (09:53)
[2020-04-27] MEDS: PYRIDOXINE 50 MG TABLET. PO SCH (09:53)
[2020-04-27] MEDS: MULTIVITAMIN with MINERAL TABLET. PO SCH (09:53)
[2020-04-27] MEDS: LACTOBACILLUS RHAMNOSUS GG 1 CAPSULE. PO SCH ×2 (09:53→20:36)
[2020-04-27] MEDS: POLYETHYLENE GLYCOL 3350 17 GM PACKET. PO SCH (09:53)
[2020-04-27] MEDS: FUROSEMIDE 40 MG TABLET. PO SCH (09:54)
[2020-04-27] MEDS: ASCORBIC ACID 500 MG TABLET PO SCH (09:54)
--- NOTE | 2020-04-27 10:58 | PDOC ---
PROGRESS NOTES Date of Service: DATE: 04/27/20 TIME: 10:58 Chief Complaint Chief Complaint VTE Prophylaxis Ordered VTE Prophylaxis Devices: Yes VTE Pharmacological Prophylaxi: Yes Assessment/Plan Assessment/Plan IMPRESSION: 1. acute SEPSIS 2. Mild distended small bowel loops in the lower small bowel region nonspecific // partial small bowel obstruction. 3. Minimal amount of fluid identified in the right paracolic gutter region, nonspecific. 4. Hepatic steatosis. 5. on ct ulcer identified in the right gluteal region extending to the right ischial tuberosity region. Consider follow-up MRI pelvis to exclude osteomyelitis 6. Acute pyelonephritis 7. DIABETES 8. Sacral decubitus ulcer status post flap 9. post left [id number]. post right-sided urostomy 10.COVID-19 12-20 11. Hypertension/ 12. hyperlipidemia 13. History of pneumonia 14. History of sacral osteomyelitis 15. History of nephrolithiasis; lithotripsy plan admit regular due to sepsis, need for iv antibiotics> 48 hrs blood and urine cultures ID consult GI CONSULT Emperic iv antibiotics, Start Zosyn. iv Follow-up labs and cultures Continue supportive care ortho consult procalcitonin sepsis protocol iv fluid support dvt prophylaxis accuchecks, ss insulin F/U GNR and GPC from sacral wound wound care following >100,000 CFU/ML GRAM NEGATIVE RODS on 04/26/20 at 0952 FINAL ID= [PROTEUS MIRABILIS] 1-16 39 min pt exam, chart review, > 50% of time spent with exam, chart review, pt care coordination Justifications for Admission Other Justification History of Present Illness History of Present Illness Identification/Chief Complaint Chief Complaint seen in er with possible pyelonephritis , sacral wound// 70 year old female presented to the ER by EMS from [facility] due to right side flank pain, abdominal pain and fever. tested positive for COVID-19 INFECTION on 03/24/20. Patient has MS, has urostomy and colostomy. // has fever with generalized weakness. hx baclofen pump on the right side. // last week when she was evaluated at , when they moved her, they pumped her right side of abdomen against the bed rail. Since she has right side abdominal pain in 2015 developed a large sacral decubitus ulcer and hospitalized at [facility] for osteomyelitis. At that time, she underwent a debridement and was transferred to [facility] where she completed a course of IV antibiotics. Past Medical History Past Medical History Past Medical History Past Medical History: Anemia, Constipation, Depression, Hypertension, NC, Pneumonia, UTI, Other Additional Past Medical Histor: multiple sclerosis, C. Diff, obesity, osteomyelitis Past Surgical History: Other Additional Past Surgical Histo: debreeding x 3, muscle flap repair x 2, Smoking Status: Never Smoker Alcohol Use: None Drug Use: None fhx HTN Cardiovascular: Hyperlipidemia Family History Family History: High Cholestrol, Hypertension Social History Smoke: No ALCOHOL: none Drugs: None Current Problem List Problem List Problems Medical Problems: (1) Flank pain Status: Acute (2) Multiple sclerosis Status: Acute (3) Partial small bowel obstruction Status: Acute (4) Pyelonephritis Status: Acute (5) Sepsis Status: Acute (6) UTI (urinary tract infection) Status: Acute Vitals Vitals Vital Signs Date Time Temp Pulse Resp B/P (MAP) Pulse Ox O2 Delivery O2 Flow Rate FiO2 04/27/20 07:59 97.6 80 18 130/47 (74) 99 Room Air 97.6 Physical Exam Physical Exam Constitutional: Well developed, well nourished, no acute distress, non-toxic appearance. [] HENT: Normocephalic, atraumatic, bilateral external ears normal, oropharynx moist, no oral exudates, nose normal. [] Eyes: PERRLA, EOMI, conjunctiva normal, no discharge. [] Neck: Normal range of motion, no tenderness, supple, no stridor. [] Cardiovascular: Sinus tachycardia, regular rhythm, no murmur [] Lungs & Thorax: Bilateral breath sounds clear to auscultation [] Abdomen: Bowel sounds normal, soft, There is right side flank tenderness to palpation, no masses, no pulsatile masses. [] Skin: Warm, dry, facial hot flush. sacral wound Back: No tenderness, RIGHT SIDE CVA tenderness. [] Extremities: No tenderness, no cyanosis, no clubbing, ROM intact, no edema. [] General: Alert, Oriented X3, No acute distress Heart: Regular rate, Normal S1, Normal S2, No murmurs Lungs: Clear Abdomen: Normal bowel sounds, Other (Urostomy and colostomy in place functioning) Extremities: No cyanosis Skin: No rashes Labs LABS Laboratory Tests Test 04/26/20 11:36 04/26/20 16:31 04/26/20 19:06 04/27/20 04:00 Glucose (Fingerstick) 369 mg/dL (70-99) 244 mg/dL (70-99) 288 mg/dL (70-99) Sodium Level 143 mmol/L (136-145) Potassium Level 3.3 mmol/L (3.5-5.1) Chloride Level 107 mmol/L (98-107) Carbon Dioxide Level 24 mmol/L (21-32) Anion Gap 12 (6-14) Blood Urea Nitrogen 9 mg/dL (7-20) Creatinine 0.6 mg/dL (0.6-1.0) Estimated GFR (Cockcroft-Gault) 98.8 Glucose Level 131 mg/dL (70-99) Calcium Level 8.0 mg/dL (8.5-10.1) Phosphorus Level 2.6 mg/dL (2.6-4.7) Assessment and Plan Assessmemt and Plan Problems Medical Problems: (1) Flank pain Status: Acute (2) Multiple sclerosis Status: Acute (3) Partial small bowel obstruction Status: Acute (4) Pyelonephritis Status: Acute (5) Sepsis Status: Acute (6) UTI (urinary tract infection) Status: Acute Comment Review of Relevant I have reviewed the following items genoveva (where applicable) has been applied. Labs Laboratory Tests Test 04/25/20 11:36 04/25/20 12:35 04/25/20 15:36 04/25/20 19:24 Glucose (Fingerstick) 245 mg/dL (70-99) 314 mg/dL (70-99) 272 mg/dL (70-99) White Blood Count 10.5 x10^3/uL (4.0-11.0) Red Blood Count 4.63 x10^6/uL (3.50-5.40) Hemoglobin 11.7 g/dL (12.0-15.5) Hematocrit 36.2 % (36.0-47.0) Mean Corpuscular Volume 78 fL (79-100) Mean Corpuscular Hemoglobin 25 pg (25-35) Mean Corpuscular Hemoglobin Concent 32 g/dL (31-37) Red Cell Distribution Width 17.7 % (11.5-14.5) Platelet Count 280 x10^3/uL (140-400) Neutrophils (%) (Auto) 62 % (31-73) Lymphocytes (%) (Auto) 24 % (24-48) Monocytes (%) (Auto) 10 % (0-9) Eosinophils (%) (Auto) 4 % (0-3) Basophils (%) (Auto) 1 % (0-3) Neutrophils # (Auto) 6.5 x10^3/uL (1.8-7.7) Lymphocytes # (Auto) 2.5 x10^3/uL (1.0-4.8) Monocytes # (Auto) 1.0 x10^3/uL (0.0-1.1) Eosinophils # (Auto) 0.5 x10^3/uL (0.0-0.7) Basophils # (Auto) 0.1 x10^3/uL (0.0-0.2) Prothrombin Time 16.5 SEC (11.7-14.0) Prothromb Time International Ratio 1.4 (0.8-1.1) Fibrinogen 664 mg/dL (200-440) D-Dimer (Estephania) 8.57 ug/mlFEU (0.00-0.50) Iron Level 44 ug/dL (50-170) Total Iron Binding Capacity 287 ug/dL (250-450) Iron Saturation 15 % (15-34) Test 04/26/20 04:30 04/26/20 07:05 04/26/20 11:36 04/26/20 16:31 White Blood Count 8.5 x10^3/uL (4.0-11.0) Red Blood Count 4.47 x10^6/uL (3.50-5.40) Hemoglobin 11.4 g/dL (12.0-15.5) Hematocrit 35.6 % (36.0-47.0) Mean Corpuscular Volume 80 fL (79-100) Mean Corpuscular Hemoglobin 26 pg (25-35) Mean Corpuscular Hemoglobin Concent 32 g/dL (31-37) Red Cell Distribution Width 18.0 % (11.5-14.5) Platelet Count 267 x10^3/uL (140-400) Neutrophils (%) (Auto) 58 % (31-73) Lymphocytes (%) (Auto) 25 % (24-48) Monocytes (%) (Auto) 10 % (0-9) Eosinophils (%) (Auto) 6 % (0-3) Basophils (%) (Auto) 1 % (0-3) Neutrophils # (Auto) 4.9 x10^3/uL (1.8-7.7) Lymphocytes # (Auto) 2.1 x10^3/uL (1.0-4.8) Monocytes # (Auto) 0.8 x10^3/uL (0.0-1.1) Eosinophils # (Auto) 0.5 x10^3/uL (0.0-0.7) Basophils # (Auto) 0.1 x10^3/uL (0.0-0.2) Sodium Level 140 mmol/L (136-145) Potassium Level 3.2 mmol/L (3.5-5.1) Chloride Level 105 mmol/L (98-107) Carbon Dioxide Level 25 mmol/L (21-32) Anion Gap 10 (6-14) Blood Urea Nitrogen 16 mg/dL (7-20) Creatinine 0.7 mg/dL (0.6-1.0) Estimated GFR (Cockcroft-Gault) 82.7 BUN/Creatinine Ratio 23 (6-20) Glucose Level 188 mg/dL (70-99) Calcium Level 9.1 mg/dL (8.5-10.1) Total Bilirubin 0.4 mg/dL (0.2-1.0) Aspartate Amino Transf (AST/SGOT) 46 U/L (15-37) Alanine Aminotransferase (ALT/SGPT) 59 U/L (14-59) Alkaline Phosphatase 117 U/L (46-116) Total Protein 7.6 g/dL (6.4-8.2) Albumin 2.4 g/dL (3.4-5.0) Albumin/Globulin Ratio 0.5 (1.0-1.7) Glucose (Fingerstick) 187 mg/dL (70-99) 369 mg/dL (70-99) 244 mg/dL (70-99) Test 04/26/20 19:06 04/27/20 04:00 Glucose (Fingerstick) 288 mg/dL (70-99) Sodium Level 143 mmol/L (136-145) Potassium Level 3.3 mmol/L (3.5-5.1) Chloride Level 107 mmol/L (98-107) Carbon Dioxide Level 24 mmol/L (21-32) Anion Gap 12 (6-14) Blood Urea Nitrogen 9 mg/dL (7-20) Creatinine 0.6 mg/dL (0.6-1.0) Estimated GFR (Cockcroft-Gault) 98.8 Glucose Level 131 mg/dL (70-99) Calcium Level 8.0 mg/dL (8.5-10.1) Phosphorus Level 2.6 mg/dL (2.6-4.7) Laboratory Tests Test 04/26/20 11:36 04/26/20 16:31 04/26/20 19:06 04/27/20 04:00 Glucose (Fingerstick) 369 mg/dL (70-99) 244 mg/dL (70-99) 288 mg/dL (70-99) Sodium Level 143 mmol/L (136-145) Potassium Level 3.3 mmol/L (3.5-5.1) Chloride Level 107 mmol/L (98-107) Carbon Dioxide Level 24 mmol/L (21-32) Anion Gap 12 (6-14) Blood Urea Nitrogen 9 mg/dL (7-20) Creatinine 0.6 mg/dL (0.6-1.0) Estimated GFR (Cockcroft-Gault) 98.8 Glucose Level 131 mg/dL (70-99) Calcium Level 8.0 mg/dL (8.5-10.1) Phosphorus Level 2.6 mg/dL (2.6-4.7) Microbiology 04/25/20 Gram Stain - Final, Resulted 04/25/20 Aerobic and Anaerobic Culture - Preliminary, Resulted 04/25/20 Blood Culture - Preliminary, Resulted NO GROWTH AFTER 2 DAYS 04/24/20 Urine Culture - Final, Complete 04/24/20 Antimicrobic Susceptibility - Final, Complete Medications Current Medications Sodium Chloride 1,000 ml @ 1,000 mls/hr 1X ONCE IV Last administered on 04/24/20at 16:26; Start 04/24/20 at 16:15; Stop 04/24/20 at 17:14; Status DC Acetaminophen (Tylenol) 1,000 mg 1X ONCE PO Last administered on 04/24/20at 16:26; Start 04/24/20 at 16:15; Stop 04/24/20 at 16:16; Status DC Levofloxacin/ Dextrose 150 ml @ 100 mls/hr 1X ONCE IV Last administered on 04/24/20at 18:32; Start 04/24/20 at 17:30; Stop 04/24/20 at 18:59; Status DC Iohexol (Omnipaque 300 Mg/ml) 75 ml 1X ONCE IV Last administered on 04/24/20at 18:07; Start 04/24/20 at 18:00; Stop 04/24/20 at 18:01; Status DC Info (CONTRAST GIVEN -- Rx MONITORING) 1 each PRN DAILY PRN MC SEE COMMENTS; Start 04/24/20 at 18:00; Stop 04/26/20 at 17:59; Status DC Morphine Sulfate (Morphine Sulfate) 4 mg 1X ONCE IV ; Start 04/24/20 at 18:00; Stop 04/24/20 at 18:01; Status DC Sodium Chloride 1,000 ml @ 1,000 mls/hr 1X ONCE IV Last administered on 04/24/20at 18:32; Start 04/24/20 at 18:00; Stop 04/24/20 at 18:59; Status DC Acetaminophen (Tylenol) 650 mg PRN Q6HRS PRN PO PAIN; Start 04/25/20 at 10:15; Stop 04/25/20 at 14:33; Status DC Aspirin (Aspirin Chewable) 81 mg DAILY PO Last administered on 04/27/20at 09:53; Start 04/25/20 at 11:00 Atorvastatin Calcium (Lipitor) 20 mg HS PO Last administered on 04/26/20at 20:27; Start 04/25/20 at 21:00 Cetirizine HCl (ZyrTEC) 10 mg DAILY PO Last administered on 04/27/20at 09:53; Start 04/25/20 at 11:00 Diphenhydramine HCl (Benadryl) 25 mg Q6HRS PO ; Start 04/25/20 at 12:00; Stop 04/25/20 at 11:01; Status DC Ferrous Sulfate (Feosol) 325 mg DAILYWBKFT PO Last administered on 04/27/20at 09:53; Start 04/25/20 at 12:00 Furosemide (Lasix) 40 mg DAILY PO Last administered on 04/27/20at 09:54; Start 04/25/20 at 11:00 Sennosides (Senna) 8.6 mg QEVNG PO Last administered on 04/26/20at 17:02; Start 04/25/20 at 18:00 Venlafaxine HCl (Effexor Xr) 187.5 mg DAILY PO Last administered on 04/27/20at 09:53; Start 04/25/20 at 11:00 Ascorbic Acid (Vitamin C) 500 mg DAILY PO Last administered on 04/27/20at 09:54; Start 04/25/20 at 11:00 Docusate Sodium (Colace) 100 mg BID PO Last administered on 04/27/20at 09:53; Start 04/25/20 at 11:00 Non-Formulary Medication (Melatonin ) 2 tab QHS SL ; Start 04/25/20 at 21:00; Status UNV Multivitamins (Thera M Plus) 1 tab DAILY PO Last administered on 04/27/20at 09:53; Start 04/26/20 at 09:00 Ondansetron HCl (Zofran Odt) 4 mg PRN Q4HRS PRN PO NAUSEA/VOMITING; Start 04/25/20 at 10:45 Polyethylene Glycol (miraLAX PACKET) 17 gm DAILY PO Last administered on 04/27/20at 09:53; Start 04/25/20 at 11:00 Glycerin/ Hypromellose/ Polyethylene (Artificial Tears) 1 drop PRN QID PRN OU DRY EYE; Start 04/25/20 at 11:00 Pyridoxine HCl (Vitamin B-6) 100 mg DAILY PO Last administered on 04/27/20at 09:53; Start 04/25/20 at 11:00 Zinc Sulfate (Orazinc) 220 mg QHS PO Last administered on 04/26/20at 20:27; Start 04/25/20 at 21:00 Diphenhydramine HCl (Benadryl) 25 mg PRN Q6HRS PRN PO ITCHING; Start 04/25/20 at 11:00 Levofloxacin/ Dextrose 100 ml @ 100 mls/hr Q24H IV ; Start 04/25/20 at 13:00; Stop 04/25/20 at 15:12; Status DC Sodium Chloride 1,000 ml @ 1,560 mls/hr Q39M IV ; Start 04/25/20 at 12:15; Stop 04/25/20 at 13:17; Status DC Sodium Chloride 500 ml @ 1,000 mls/hr PRN Q30MIN PRN IV SEE COMMENTS; Start 04/25/20 at 12:15 Vancomycin HCl (Vanco Per Pharmacy) 1 each PRN DAILY PRN MC SEE COMMENTS Last administered on 04/25/20at 14:44; Start 04/25/20 at 12:15; Stop 04/25/20 at 15:13; Status DC Vancomycin HCl (Vanco Per Pharmacy) 1 each PRN DAILY PRN MC SEE COMMENTS; Start 04/25/20 at 12:30; Status UNV Sodium Chloride (Normal Saline Flush) 3 ml QSHIFT PRN IV AFTER MEDS AND BLOOD DRAWS; Start 04/25/20 at 12:30 Sodium Chloride 1,000 ml @ 100 mls/hr Q10H IV Last administered on 04/27/20at 00:32; Start 04/25/20 at 12:30 Ondansetron HCl (Zofran) 4 mg PRN Q4HRS PRN IV NAUSEA/VOMITING; Start 04/25/20 at 12:30 Acetaminophen (Tylenol) 650 mg PRN Q4HRS PRN PO TEMP OVER 100.4F OR MILD PAIN Last administered on 04/25/20at 21:24; Start 04/25/20 at 12:30 Acetaminophen (Tylenol Supp) 650 mg PRN Q4HRS PRN PA TEMP OVER 100.4F OR MILD PAIN; Start 04/25/20 at 12:30 Al Hydroxide/Mg Hydroxide (Mylanta Plus Xs) 30 ml PRN DAILY PRN PO HEARTBURN / GAS; Start 04/25/20 at 12:30 Sodium Monofluorophosphate (Fleet Adult) 133 ml PRN DAILY PRN PA CONSTIPATION; Start 04/25/20 at 12:30 Docusate Sodium (Colace) 100 mg PRN BID PRN PO HARD STOOLS; Start 04/25/20 at 12:30 Albuterol Sulfate (Ventolin Neb Soln) 2.5 mg PRN Q4HRS PRN NEB SHORTNESS OF BREATH; Start 04/25/20 at 12:30 Guaifenesin (Robitussin) 200 mg PRN Q4HRS PRN PO COUGH; Start 04/25/20 at 12:30 Lorazepam (Ativan) 0.5 mg PRN Q4HRS PRN PO ANXIETY / AGITATION; Start 04/25/20 at 12:30 Enoxaparin Sodium (Lovenox 40mg Syringe) 40 mg Q24H SQ Last administered on 04/26/20at 12:08; Start 04/25/20 at 13:00 Vancomycin HCl 2 gm/Sodium Chloride 500 ml @ 250 mls/hr 1X ONCE IV Last administered on 04/25/20at 14:09; Start 04/25/20 at 12:45; Stop 04/25/20 at 14:44; Status DC Polyethylene Glycol (miraLAX PACKET) 17 gm PRN DAILY PRN PO CONSTIPATION; Start 04/25/20 at 13:15 Insulin Human Lispro (HumaLOG) 0-5 UNITS TIDWMEALS SQ Last administered on 04/26/20at 17:03; Start 04/25/20 at 17:00 Dextrose (Dextrose 50%-Water Syringe) 12.5 gm PRN Q15MIN PRN IV SEE COMMENTS; Start 04/25/20 at 14:00 Lactobacillus Rhamnosus (Culturelle) 1 cap BID PO Last administered on 04/27/20at 09:53; Start 04/25/20 at 21:00 Vancomycin HCl 1.25 gm/Sodium Chloride 250 ml @ 167 mls/hr Q24H IV ; Start 04/26/20 at 14:00; Stop 04/25/20 at 15:12; Status DC Vancomycin HCl (Vancomycin Trough Level) 1 each 1X ONCE MC ; Start 04/27/20 at 13:30; Stop 04/25/20 at 15:13; Status DC Piperacillin Sod/ Tazobactam Sod 3.375 gm/Sodium Chloride 50 ml @ 100 mls/hr Q6HRS IV Last administered on 04/27/20at 05:59; Start 04/25/20 at 17:00 Insulin Human Lispro (HumaLOG) 4 units 1X ONCE SQ Last administered on 04/25/20at 20:39; Start 04/25/20 at 21:00; Stop 04/25/20 at 21:01; Status DC Throat Lozenges (Cepacol Sore Throat Lozenge) 1 jose a PRN Q2HRS PRN PO SORE THROAT Last administered on 04/27/20at 00:32; Start 04/25/20 at 21:00 Potassium Bicarbonate (Potassium Effervescent Tablet) 40 meq 1X ONCE FT Last administered on 04/26/20at 14:23; Start 04/26/20 at 14:15; Stop 04/26/20 at 14:16; Status DC Potassium Bicarbonate (Potassium Effervescent Tablet) 40 meq 1X ONCE FT ; Start 04/26/20 at 14:15; Stop 04/26/20 at 14:16; Status UNV Magnesium Sulfate 50 ml @ 25 mls/hr Q24H IV ; Start 04/26/20 at 14:15; Stop 04/28/20 at 16:14; Status UNV Potassium Phos/ Sodium Phos (Phos-Nak) 1 pkt BID PO ; Start 04/26/20 at 21:00; Stop 04/27/20 at 09:01; Status UNV Potassium Bicarbonate (Potassium Effervescent Tablet) 40 meq Q4H PO ; Start 04/26/20 at 14:15; Stop 04/26/20 at 18:16; Status UNV Info (Non-Icu Electrolyte Protocol) 1 ea CONT PRN PRN MC PER PROTOCOL; Start 04/26/20 at 14:15 Active Scripts Active Reported Zofran (Ondansetron Hcl) 4 Mg Tablet 1 Tab PO Q4HRS PRN Zinc Sulfate 220 Mg Tablet 1 Tab PO QHS 30 Days Pyridoxine HCl (Pyridoxine HCl (Vitamin B6)) 25 Mg Tablet 100 Mg PO QAM Venlafaxine Hcl 75 Mg Tablet 187.5 Mg PO DAILY Systane Ultra 0.4-0.3% Eye Drp (Propylene Glycol/Peg 400) 10 Ml Drops 1 Drop EA CHEYE QID PRN Senna (Sennosides) 8.6 Mg Tablet 8.6 Mg PO QEVNG Multi Vitamin Daily (Multivitamin) 1 Each Tablet 1 Tab PO DAILY 30 Days Melatonin 5 Mg Tab.subl 2 Tab SL QHS 30 Days Cetirizine Hcl 10 Mg Tablet 1 Tab PO DAILY Benadryl (Diphenhydramine Hcl) 25 Mg Capsule 25 Mg PO Q6HRS Atorvastatin Calcium 20 Mg Tablet 20 Mg PO HS Tylenol (Acetaminophen) 325 Mg Tablet 2 Tab PO PRN Q6HRS PRN Vitamin C (Ascorbic Acid) 500 Mg Capsule.er 500 Mg PO DAILY Polyethylene Glycol (Polyethylene Glycol 8000) 500 Gm Powder 17 Gm PO DAILY Furosemide 40 Mg Tablet 1 Tab PO DAILY Ferrousul (Ferrous Sulfate) 325 Mg Tablet 325 Mg PO DAILY Colace Clear (Docusate Sodium) 50 Mg Capsule 100 Mg PO BID Clotrimazole Af (Clotrimazole) 30 Gm Cream..g. 30 Gm TP Bisacodyl 5 Mg Tablet.dr 5 Mg PO PRN DAILY PRN Aspirin 81 Mg Tab.chew 1 Tab PO DAILY Vitals/I & O Vital Sign - Last 24 Hours 04/26/20 04/26/20 04/26/20 04/26/20 11:09 15:29 19:00 20:00 Temp 98.1 97.1 99.2 98.1 97.1 99.2 Pulse 97 94 131 Resp 20 20 18 B/P (MAP) 126/59 (81) 130/54 (79) 119/43 (68) Pulse Ox 94 94 95 O2 Delivery Room Air Room Air Room Air Room Air 04/26/20 04/27/20 04/27/20 22:54 02:52 07:59 Temp 99.3 97.6 97.6 99.3 97.6 97.6 Pulse 130 103 80 Resp 18 18 18 B/P (MAP) 138/57 (84) 122/40 (67) 130/47 (74) Pulse Ox 96 95 99 O2 Delivery Room Air Room Air Room Air Intake and Output 04/26/20 04/26/20 04/27/20 15:00 23:00 07:00 Intake Total 400 ml 500 ml 300 ml Output Total 750 ml 2050 ml Balance -350 ml 500 ml -1750 ml Justicifation of Admission Dx: Justifications for Admission: Justification of Admission Dx: Yes Sepsis: Isolation Indicated Altered Mental Status: Altered Mental Status KOFI DIXON MD Apr 27, 2020 10:58
[2020-04-27 11:05] VITALS: BP 120/54
[2020-04-27] MEDS: ENOXAPARIN 40 MG/0.4 ML SYRINGE. SQ SCH (12:04)
[2020-04-27] MEDS ORDERED: POTASSIUM BICARB 20 MEQ EFFERVESCENT TABLET. FT ONE (13:30)
[2020-04-27 15:20] VITALS: BP 150/60
[2020-04-27] MEDS: SENNOSIDES 8.6 MG TABLET PO SCH (18:23)
[2020-04-27 19:00] VITALS: BP 118/43
[2020-04-27] MEDS: ZINC SULFATE 220 MG CAPSULE. PO SCH (20:37)
[2020-04-27] MEDS: ATORVASTATIN CALCIUM 20 MG TABLET PO SCH (20:37)
[2020-04-27] MEDS: guaiFENesin ORAL 200 MG/10 ML LIQUID. PO PRN (21:25)
[2020-04-27 22:47] VITALS: BP 152/67
[2020-04-28] VITALS (7 sets, daily range): BP systolic 122–143; BP diastolic 47–99
[2020-04-28] MEDS: IV NORMAL SALINE 1000ML BAG 1,000 ML IV SCH ×3 (00:27→20:30)
[2020-04-28] MEDS: PIPERACILLIN/TAZOBACTAM 3.375 GM in IV NORMAL SALINE 50ML 50 ML IV SCH ×2 (00:27→05:19)
[2020-04-28] MEDS: INSULIN LISPRO 300 UNITS/3 ML VIAL. SQ SCH ×3 (07:56→17:15)
[2020-04-28 08:19] LABS: BASO # 0.1 x10^3/uL (0.0-0.2); BASO % 1 % (0-3); EOS # 0.5 x10^3/uL (0.0-0.7); EOS % 6 % (0-3); HEMATOCRIT 33.4 % (36.0-47.0); HEMOGLOBIN 10.8 g/dL (12.0-15.5); LYMPH # 2.3 x10^3/uL (1.0-4.8); LYMPH % 30 % (24-48); MEAN CORPUSCULAR HEMOGLOBIN 25 pg (25-35); MEAN CORPUSCULAR HGB CONC 32 g/dL (31-37); MEAN CORPUSCULAR VOLUME 78 fL (79-100); MONO # 0.7 x10^3/uL (0.0-1.1); MONO % 10 % (0-9); NEUT # 3.9 x10^3/uL (1.8-7.7); NEUT % 53 % (31-73); PLATELET COUNT 274 x10^3/uL (140-400); RED BLOOD COUNT 4.28 x10^6/uL (3.50-5.40); RED CELL DISTRIBUTION WIDTH 17.6 % (11.5-14.5); WHITE BLOOD COUNT 7.5 x10^3/uL (4.0-11.0)
[2020-04-28 08:31] LABS: CALCIUM 8.4 mg/dL (8.5-10.1); CREATININE 0.6 mg/dL (0.6-1.0); GFR 98.8; MAGNESIUM 2.1 mg/dL (1.8-2.4); POTASSIUM 3.6 mmol/L (3.5-5.1)
[2020-04-28] MEDS: ASCORBIC ACID 500 MG TABLET PO SCH (09:04)
[2020-04-28] MEDS: MULTIVITAMIN with MINERAL TABLET. PO SCH (09:04)
[2020-04-28] MEDS: PYRIDOXINE 50 MG TABLET. PO SCH (09:04)
[2020-04-28] MEDS: LACTOBACILLUS RHAMNOSUS GG 1 CAPSULE. PO SCH ×2 (09:04→23:15)
[2020-04-28] MEDS: ASPIRIN CHEWABLE 81 MG TABLET. PO SCH (09:04)
[2020-04-28] MEDS: FERROUS SULFATE 325 MG TABLET. PO SCH (09:04)
[2020-04-28] MEDS: POLYETHYLENE GLYCOL 3350 17 GM PACKET. PO SCH (09:04)
[2020-04-28] MEDS: VENLAFAXINE XR 37.5 MG CAP.ER.24H. PO SCH (09:04)
[2020-04-28] MEDS: DOCUSATE SODIUM 100 MG CAPSULE. PO SCH ×2 (09:05→23:15)
[2020-04-28] MEDS: FUROSEMIDE 40 MG TABLET. PO SCH (09:05)
[2020-04-28] MEDS: CETIRIZINE HCL 10 MG TABLET. PO SCH (09:05)
--- NOTE | 2020-04-28 10:08 | PDOC ---
Date of Service: DATE: 04/28/20 TIME: 10:01 Subjective: Subjective: No GI complaints. Tolerating diet, ostomy functioning. Objective: Objective: No GI concerns per nurse. Vital Signs: Vital Signs Date Time Temp Pulse Resp B/P (MAP) Pulse Ox O2 Delivery O2 Flow Rate FiO2 04/28/20 07:00 96.4 73 18 124/63 (83) 96 Room Air 96.4 Labs: Laboratory Tests Test 04/27/20 10:17 04/27/20 15:55 04/27/20 19:01 04/28/20 07:19 Glucose (Fingerstick) 276 mg/dL 272 mg/dL 242 mg/dL 127 mg/dL Test 04/28/20 07:27 White Blood Count 7.5 x10^3/uL Red Blood Count 4.28 x10^6/uL Hemoglobin 10.8 g/dL Hematocrit 33.4 % Mean Corpuscular Volume 78 fL Mean Corpuscular Hemoglobin 25 pg Mean Corpuscular Hemoglobin Concent 32 g/dL Red Cell Distribution Width 17.6 % Platelet Count 274 x10^3/uL Neutrophils (%) (Auto) 53 % Lymphocytes (%) (Auto) 30 % Monocytes (%) (Auto) 10 % Eosinophils (%) (Auto) 6 % Basophils (%) (Auto) 1 % Neutrophils # (Auto) 3.9 x10^3/uL Lymphocytes # (Auto) 2.3 x10^3/uL Monocytes # (Auto) 0.7 x10^3/uL Eosinophils # (Auto) 0.5 x10^3/uL Basophils # (Auto) 0.1 x10^3/uL Sodium Level 143 mmol/L Potassium Level 3.6 mmol/L Chloride Level 107 mmol/L Carbon Dioxide Level 26 mmol/L Anion Gap 10 Blood Urea Nitrogen 7 mg/dL Creatinine 0.6 mg/dL Estimated GFR (Cockcroft-Gault) 98.8 Glucose Level 132 mg/dL Calcium Level 8.4 mg/dL Magnesium Level 2.1 mg/dL GRAM STAIN Final Final GRAM NEGATIVE RODS:MODERATE GRAM POSITIVE COCCI:RARE SQUAMOUS EPI CELL:FEW PMN (WBCs):RARE Unless otherwise specified, Testing Performed by: [address] [id number] For Inquires, the Physician may contact the Microbiology department at [phone] ANAEROBIC-AEROBIC CULTURE Preliminary Preliminary MIXED AEROBIC TANK on 04/27/20 at 0920 INCLUDING: MANY GRAM NEGATIVE RODS FINAL ID= [PROTEUS MIRABILIS/PENNERI] PROTEUS MIRABILIS/PENNERI Unless otherwise specified, Testing Performed by: [address] [address] For Inquires, the Physician may contact the Microbiology department at [phone] BLOOD CULTURE Preliminary NO GROWTH AFTER 3 DAYS URINE CULTURE Final Final >100,000 CFU/ML GRAM NEGATIVE RODS on 04/26/20 at 0952 FINAL ID= [PROTEUS MIRABILIS] PE: GEN: NAD LUNGS: CTAB HEART: RRR ABD: soft, left-sided ostomy w/ air/stool EXTREM: contractures NEURO/PSYCH: A & O 3 A/P: UTI MS w/ sacral wound/infection, colostomy, and urostomy H/o constipation Anemia (stable - on iron), elevated AST and ALT (better) -- Stable from GI standpoint - continue same. Justicifation of Admission Dx: Justifications for Admission: Justification of Admission Dx: Yes Sepsis: Isolation Indicated Altered Mental Status: Altered Mental Status BIANCA HAWTHORNE Apr 28, 2020 10:08
--- NOTE | 2020-04-28 10:46 | PDOC ---
Infectious Disease Note Subjective: Subjective Patient denies any complaints Vital Signs: Vital Signs Vital Signs Date Time Temp Pulse Resp B/P (MAP) Pulse Ox O2 Delivery O2 Flow Rate FiO2 04/28/20 10:28 96.6 84 18 136/64 (88) 98 Room Air 96.6 Physical Exam: PHYSICAL EXAM Constitutional: Well developed, well nourished, no acute distress, non-toxic appearance. [] HENT: Normocephalic, atraumatic, bilateral external ears normal, oropharynx pa[address]ina st, no oral exudates, nose normal. [] Eyes: PERRLA, EOMI, conjunctiva normal, no discharge. [] Neck: Normal range of motion, no tenderness, supple, no stridor. [] Cardiovascular: Sinus tachycardia, regular rhythm, no murmur [] Lungs & Thorax: Bilateral breath sounds clear to auscultation [] Abdomen: Bowel sounds normal, soft, There is right side flank tenderness to palpation, no masses, no pulsatile masses. [] Skin: Warm, dry, facial hot flush. sacral wound Back: No tenderness, RIGHT SIDE CVA tenderness. [] Extremities: No tenderness, no cyanosis, no clubbing, ROM intact, no edema. [] Medications: Inpatient Meds: Current Medications Medications (Trade) Dose Ordered Sig/Alison Start Time Stop Time Status Last Admin Dose Admin Acetaminophen (Tylenol Supp) 650 mg PRN Q4HRS PRN 04/25/20 12:30 Acetaminophen (Tylenol) 650 mg PRN Q4HRS PRN 04/25/20 12:30 04/25/20 21:24 650 MG Al Hydroxide/Mg Hydroxide (Mylanta Plus Xs) 30 ml PRN DAILY PRN 04/25/20 12:30 Albuterol Sulfate (Ventolin Neb Soln) 2.5 mg PRN Q4HRS PRN 04/25/20 12:30 Ascorbic Acid (Vitamin C) 500 mg DAILY 04/25/20 11:00 04/28/20 09:04 500 MG Aspirin (Aspirin Chewable) 81 mg DAILY 04/25/20 11:00 04/28/20 09:04 81 MG Atorvastatin Calcium (Lipitor) 20 mg HS 04/25/20 21:00 04/27/20 20:37 20 MG Cetirizine HCl (ZyrTEC) 10 mg DAILY 04/25/20 11:00 04/28/20 09:05 10 MG Dextrose (Dextrose 50%-Water Syringe) 12.5 gm PRN Q15MIN PRN 04/25/20 14:00 Diphenhydramine HCl (Benadryl) 25 mg PRN Q6HRS PRN 04/25/20 11:00 Docusate Sodium (Colace) 100 mg PRN BID PRN 04/25/20 12:30 Enoxaparin Sodium (Lovenox 40mg Syringe) 40 mg Q24H 04/25/20 13:00 04/27/20 12:04 40 MG Ferrous Sulfate (Feosol) 325 mg DAILYWBKFT 04/25/20 12:00 04/28/20 09:04 325 MG Furosemide (Lasix) 40 mg DAILY 04/25/20 11:00 04/28/20 09:05 40 MG Glycerin/ Hypromellose/ Polyethylene (Artificial Tears) 1 drop PRN QID PRN 04/25/20 11:00 Guaifenesin (Robitussin) 200 mg PRN Q4HRS PRN 04/25/20 12:30 04/27/20 21:25 200 MG Info (CONTRAST GIVEN -- Rx MONITORING) 1 each PRN DAILY PRN 04/24/20 18:00 04/26/20 17:59 DC Info (Non-Icu Electrolyte Protocol) 1 ea CONT PRN PRN 04/26/20 14:15 Insulin Human Lispro (HumaLOG) 4 units 1X ONCE 04/25/20 21:00 04/25/20 21:01 DC 04/25/20 20:39 4 UNITS Iohexol (Omnipaque 300 Mg/ml) 75 ml 1X ONCE 04/24/20 18:00 04/24/20 18:01 DC 04/24/20 18:07 75 ML Lactobacillus Rhamnosus (Culturelle) 1 cap BID 04/25/20 21:00 04/28/20 09:04 1 CAP Levofloxacin/ Dextrose 100 ml @ 100 mls/hr Q24H 04/25/20 13:00 04/25/20 15:12 DC Lorazepam (Ativan) 0.5 mg PRN Q4HRS PRN 04/25/20 12:30 Magnesium Sulfate 50 ml @ 25 mls/hr Q24H 04/26/20 14:15 04/28/20 16:14 UNV Morphine Sulfate (Morphine Sulfate) 4 mg 1X ONCE 04/24/20 18:00 04/24/20 18:01 DC Multivitamins (Thera M Plus) 1 tab DAILY 04/26/20 09:00 04/28/20 09:04 1 TAB Non-Formulary Medication (Melatonin ) 2 tab QHS 04/25/20 21:00 UNV Ondansetron HCl (Zofran Odt) 4 mg PRN Q4HRS PRN 04/25/20 10:45 Ondansetron HCl (Zofran) 4 mg PRN Q4HRS PRN 04/25/20 12:30 Piperacillin Sod/ Tazobactam Sod 3.375 gm/Sodium Chloride 50 ml @ 100 mls/hr Q6HRS 04/25/20 17:00 04/28/20 05:19 100 MLS/HR Polyethylene Glycol (miraLAX PACKET) 17 gm PRN DAILY PRN 04/25/20 13:15 Potassium Bicarbonate (Potassium Effervescent Tablet) 40 meq 1X ONCE 04/27/20 13:30 04/27/20 13:31 DC 04/27/20 14:41 40 MEQ Potassium Phos/ Sodium Phos (Phos-Nak) 1 pkt BID 04/26/20 21:00 04/27/20 09:01 UNV Pyridoxine HCl (Vitamin B-6) 100 mg DAILY 04/25/20 11:00 04/28/20 09:04 100 MG Sennosides (Senna) 8.6 mg QEVNG 04/25/20 18:00 04/27/20 18:23 8.6 MG Sodium Monofluorophosphate (Fleet Adult) 133 ml PRN DAILY PRN 04/25/20 12:30 Sodium Chloride 1,000 ml @ 100 mls/hr Q10H 04/25/20 12:30 04/28/20 09:05 100 MLS/HR Sodium Chloride (Normal Saline Flush) 3 ml QSHIFT PRN 04/25/20 12:30 Throat Lozenges (Cepacol Sore Throat Lozenge) 1 sharan PRN Q2HRS PRN 04/25/20 21:00 04/27/20 00:32 1 SHARAN Vancomycin HCl (Vanco Per Pharmacy) 1 each PRN DAILY PRN 04/25/20 12:30 UNV Vancomycin HCl (Vancomycin Trough Level) 1 each 1X ONCE 04/27/20 13:30 04/25/20 15:13 DC Vancomycin HCl 1.25 gm/Sodium Chloride 250 ml @ 167 mls/hr Q24H 04/26/20 14:00 04/25/20 15:12 DC Vancomycin HCl 2 gm/Sodium Chloride 500 ml @ 250 mls/hr 1X ONCE 04/25/20 12:45 04/25/20 14:44 DC 04/25/20 14:09 250 MLS/HR Venlafaxine HCl (Effexor Xr) 187.5 mg DAILY 04/25/20 11:00 04/28/20 09:04 187.5 MG Zinc Sulfate (Orazinc) 220 mg QHS 04/25/20 21:00 04/27/20 20:37 220 MG Labs: Lab Laboratory Tests Test 04/27/20 15:55 04/27/20 19:01 04/28/20 07:19 04/28/20 07:27 Glucose (Fingerstick) 272 mg/dL (70-99) 242 mg/dL (70-99) 127 mg/dL (70-99) White Blood Count 7.5 x10^3/uL (4.0-11.0) Red Blood Count 4.28 x10^6/uL (3.50-5.40) Hemoglobin 10.8 g/dL (12.0-15.5) Hematocrit 33.4 % (36.0-47.0) Mean Corpuscular Volume 78 fL (79-100) Mean Corpuscular Hemoglobin 25 pg (25-35) Mean Corpuscular Hemoglobin Concent 32 g/dL (31-37) Red Cell Distribution Width 17.6 % (11.5-14.5) Platelet Count 274 x10^3/uL (140-400) Neutrophils (%) (Auto) 53 % (31-73) Lymphocytes (%) (Auto) 30 % (24-48) Monocytes (%) (Auto) 10 % (0-9) Eosinophils (%) (Auto) 6 % (0-3) Basophils (%) (Auto) 1 % (0-3) Neutrophils # (Auto) 3.9 x10^3/uL (1.8-7.7) Lymphocytes # (Auto) 2.3 x10^3/uL (1.0-4.8) Monocytes # (Auto) 0.7 x10^3/uL (0.0-1.1) Eosinophils # (Auto) 0.5 x10^3/uL (0.0-0.7) Basophils # (Auto) 0.1 x10^3/uL (0.0-0.2) Sodium Level 143 mmol/L (136-145) Potassium Level 3.6 mmol/L (3.5-5.1) Chloride Level 107 mmol/L (98-107) Carbon Dioxide Level 26 mmol/L (21-32) Anion Gap 10 (6-14) Blood Urea Nitrogen 7 mg/dL (7-20) Creatinine 0.6 mg/dL (0.6-1.0) Estimated GFR (Cockcroft-Gault) 98.8 Glucose Level 132 mg/dL (70-99) Calcium Level 8.4 mg/dL (8.5-10.1) Magnesium Level 2.1 mg/dL (1.8-2.4) Objective: Assessment: Fever resolved Proteus mirabilis UTI Leukocytosis and lactic acidosis Neck/rib pain History of multiple sclerosis Sacral decubitus ulcer status post flap Status post left colostomy Status post right-sided urostomy History of COVID-19 last month Hypertension/hyperlipidemia History of pneumonia History of sacral osteomyelitis History of nephrolithiasis; lithotripsy Status post baclofen pump History of hysterectomy History of allergies to ceftriaxone with anaphylaxis; Patient has tolerated penicillin, Unasyn, Augmentin well Plan: Plan of Care DC Zosyn Patient can be discharged from ID standpoint on p.o. Augmentin for 5 more days wound care as directed Continue supportive care d/w VENU Chan MD Apr 28, 2020 10:46
[2020-04-28] MEDS: ENOXAPARIN 40 MG/0.4 ML SYRINGE. SQ SCH (12:01)
[2020-04-28] MEDS: SENNOSIDES 8.6 MG TABLET PO SCH (17:14)
--- NOTE | 2020-04-28 17:23 | PDOC ---
[employer] PROGRESS NOTE Date of Service DOS: DATE: 04/28/20 TIME: 17:22 Chief Complaint Chief Complaint VTE Prophylaxis Ordered VTE Prophylaxis Devices: Yes VTE Pharmacological Prophylaxi: Yes Assessment/Plan Assessment/Plan IMPRESSION: 1. acute SEPSIS 2. Mild distended small bowel loops in the lower small bowel region nonspecific // partial small bowel obstruction. 3. Minimal amount of fluid identified in the right paracolic gutter region, nonspecific. 4. Hepatic steatosis. 5. on ct ulcer identified in the right gluteal region extending to the right ischial tuberosity region. Consider follow-up MRI pelvis to exclude osteomyelitis 6. Acute pyelonephritis 7. DIABETES 8. Sacral decubitus ulcer status post flap 9. post left [id number]. post right-sided urostomy 10.COVID-19 12- 11. Hypertension/ 12. hyperlipidemia 13. History of pneumonia 14. History of sacral osteomyelitis 15. History of nephrolithiasis; lithotripsy plan admit regular due to sepsis, need for iv antibiotics> 48 hrs blood and urine cultures ID consult GI CONSULT Emperic iv antibiotics, Start Zosyn. iv Follow-up labs and cultures Continue supportive care ortho consult procalcitonin sepsis protocol iv fluid support dvt prophylaxis accuchecks, ss insulin F/U GNR and GPC from sacral wound wound care following >100,000 CFU/ML GRAM NEGATIVE RODS on 04/26/20 at 0952 FINAL ID= [PROTEUS MIRABILIS] 1-16 39 min pt exam, chart review, > 50% of time spent with exam, chart review, pt care coordination Justifications for Admission Other Justification History of Present Illness History of Present Illness Chief Complaint seen in er with possible pyelonephritis , sacral wound// 70 year old female presented to [facility] by EMS from [facility] due to right side flank pain, abdominal pain and fever. tested positive for COVID-19 INFECTION on 03/24/20. Patient has MS, has urostomy and colostomy. // has fever with generalized weakness. hx baclofen pump on the right side. // last week when she was evaluated at , when they moved her, they pumped her right side of abdomen against the bed rail. Since she has right side abdominal pain in 2015 developed a large sacral decubitus ulcer and hospitalized at [facility] for osteomyelitis. At that time, she underwent a debridement and was transferred to [facility] where she completed a course of IV antibiotics. 04/28: Patient seen and evaluated bedside. She denies any dysuria or nausea. Minimal CVA tenderness. Transition from IV to oral antibiotics. We will mo nitor patient overnight for continued improvement and likely discharge tomorrow morning. Discussed with RN. Vitals/I&O Vitals/I&O: Vital Signs Date Time Temp Pulse Resp B/P (MAP) Pulse Ox O2 Delivery O2 Flow Rate FiO2 04/28/20 14:38 97.5 92 18 122/66 (84) 94 Room Air 97.5 I & O 04/27/20 04/27/20 04/28/20 15:00 23:00 07:00 Intake Total 600 ml 1200 ml 2200 ml Output Total 1550 ml 2200 ml Balance 600 ml -350 ml 0 ml Physical Exam Physical Exam: Constitutional: Well developed, well nourished, no acute distress, non-toxic appearance. [] HENT: Normocephalic, atraumatic, bilateral external ears normal, oropharynx moist, no oral exudates, nose normal. [] Eyes: PERRLA, EOMI, conjunctiva normal, no discharge. [] Neck: Normal range of motion, no tenderness, supple, no stridor. [] Cardiovascular: Sinus tachycardia, regular rhythm, no murmur [] Lungs & Thorax: Bilateral breath sounds clear to auscultation [] Abdomen: Bowel sounds normal, soft, There is right side flank tenderness to palpation, no masses, no pulsatile masses. [] Skin: Warm, dry, facial hot flush. sacral wound Back: No tenderness, RIGHT SIDE CVA tenderness. [] Extremities: No tenderness, no cyanosis, no clubbing, ROM intact, no edema. [] General: Alert, Oriented X3, No acute distress Heart: Regular rate, Normal S1, Normal S2, No murmurs Lungs: Clear Abdomen: Normal bowel sounds, Other (Urostomy and colostomy in place functioning) Extremities: No cyanosis Skin: No rashes Labs Labs: Laboratory Tests Test 04/27/20 19:01 04/28/20 07:19 04/28/20 07:27 04/28/20 11:03 Glucose (Fingerstick) 242 mg/dL (70-99) 127 mg/dL (70-99) 189 mg/dL (70-99) White Blood Count 7.5 x10^3/uL (4.0-11.0) Red Blood Count 4.28 x10^6/uL (3.50-5.40) Hemoglobin 10.8 g/dL (12.0-15.5) Hematocrit 33.4 % (36.0-47.0) Mean Corpuscular Volume 78 fL (79-100) Mean Corpuscular Hemoglobin 25 pg (25-35) Mean Corpuscular Hemoglobin Concent 32 g/dL (31-37) Red Cell Distribution Width 17.6 % (11.5-14.5) Platelet Count 274 x10^3/uL (140-400) Neutrophils (%) (Auto) 53 % (31-73) Lymphocytes (%) (Auto) 30 % (24-48) Monocytes (%) (Auto) 10 % (0-9) Eosinophils (%) (Auto) 6 % (0-3) Basophils (%) (Auto) 1 % (0-3) Neutrophils # (Auto) 3.9 x10^3/uL (1.8-7.7) Lymphocytes # (Auto) 2.3 x10^3/uL (1.0-4.8) Monocytes # (Auto) 0.7 x10^3/uL (0.0-1.1) Eosinophils # (Auto) 0.5 x10^3/uL (0.0-0.7) Basophils # (Auto) 0.1 x10^3/uL (0.0-0.2) Sodium Level 143 mmol/L (136-145) Potassium Level 3.6 mmol/L (3.5-5.1) Chloride Level 107 mmol/L (98-107) Carbon Dioxide Level 26 mmol/L (21-32) Anion Gap 10 (6-14) Blood Urea Nitrogen 7 mg/dL (7-20) Creatinine 0.6 mg/dL (0.6-1.0) Estimated GFR (Cockcroft-Gault) 98.8 Glucose Level 132 mg/dL (70-99) Calcium Level 8.4 mg/dL (8.5-10.1) Magnesium Level 2.1 mg/dL (1.8-2.4) Test 04/28/20 15:57 Glucose (Fingerstick) 238 mg/dL (70-99) Assessment and Plan Assessmemt and Plan Problems Medical Problems: (1) Flank pain Status: Acute (2) Multiple sclerosis Status: Acute (3) Partial small bowel obstruction Status: Acute (4) Pyelonephritis Status: Acute (5) Sepsis Status: Acute (6) UTI (urinary tract infection) Status: Acute Comment Review of Relevant I have reviewed the following items genoveva (where applicable) has been applied. Justifications for Admission General Conditions Poss tachycardia?: Yes Justification for admission: Patient has tachycardia (> 100 beats per minute) which is not readily corrected by appropriate treatment within 12 to 24 hours. severe sepsis Other Justification YVETTE KLEIN MD Apr 28, 2020 17:23
[2020-04-28] MEDS: guaiFENesin ORAL 200 MG/10 ML LIQUID. PO PRN (23:14)
[2020-04-28] MEDS: ZINC SULFATE 220 MG CAPSULE. PO SCH (23:15)
[2020-04-28] MEDS: AMOXICILLIN/K CLAV 875/125MG TABLET. PO SCH (23:15)
[2020-04-28] MEDS: ATORVASTATIN CALCIUM 20 MG TABLET PO SCH (23:15)
[2020-04-29] MEDS: IV NORMAL SALINE 1000ML BAG 1,000 ML IV SCH (06:30)
[2020-04-29 07:00] VITALS: BP 124/63
[2020-04-29] MEDS: INSULIN LISPRO 300 UNITS/3 ML VIAL. SQ SCH ×2 (08:00→12:41)
[2020-04-29] MEDS: ASPIRIN CHEWABLE 81 MG TABLET. PO SCH (08:25)
[2020-04-29] MEDS: LACTOBACILLUS RHAMNOSUS GG 1 CAPSULE. PO SCH (08:26)
[2020-04-29] MEDS: MULTIVITAMIN with MINERAL TABLET. PO SCH (08:26)
[2020-04-29] MEDS: VENLAFAXINE XR 37.5 MG CAP.ER.24H. PO SCH (08:26)
[2020-04-29] MEDS: AMOXICILLIN/K CLAV 875/125MG TABLET. PO SCH (08:26)
[2020-04-29] MEDS: ASCORBIC ACID 500 MG TABLET PO SCH (08:27)
[2020-04-29] MEDS: FUROSEMIDE 40 MG TABLET. PO SCH (08:27)
[2020-04-29] MEDS: FERROUS SULFATE 325 MG TABLET. PO SCH (08:27)
[2020-04-29] MEDS: DOCUSATE SODIUM 100 MG CAPSULE. PO SCH (08:27)
[2020-04-29] MEDS: CETIRIZINE HCL 10 MG TABLET. PO SCH (08:27)
[2020-04-29] MEDS: POLYETHYLENE GLYCOL 3350 17 GM PACKET. PO SCH (08:28)
[2020-04-29] MEDS: PYRIDOXINE 50 MG TABLET. PO SCH (08:28)
--- NOTE | 2020-04-29 09:51 | PDOC ---
Date of Service: DATE: 04/29/20 TIME: 09:48 Subjective: Subjective: Feels fine - says might get to DC today. Tolerating diet. Not much stool today but passing gas. Thinks she'll probably take an extra dose of Miralax later. Objective: Vital Signs: Vital Signs Date Time Temp Pulse Resp B/P (MAP) Pulse Ox O2 Delivery O2 Flow Rate FiO2 04/29/20 07:00 96.1 85 20 124/63 (83) 96 Room Air 96.1 Labs: Laboratory Tests Test 04/28/20 11:03 04/28/20 15:57 04/28/20 19:58 Glucose (Fingerstick) 189 mg/dL 238 mg/dL 244 mg/dL BLOOD CULTURE Preliminary NO GROWTH AFTER 4 DAYS GRAM STAIN Final Final GRAM NEGATIVE RODS:MODERATE GRAM POSITIVE COCCI:RARE SQUAMOUS EPI CELL:FEW PMN (WBCs):RARE Unless otherwise specified, Testing Performed by: [address] [address] For Inquires, the Physician may contact the Microbiology department at [phone] ANAEROBIC-AEROBIC CULTURE Preliminary Preliminary MIXED AEROBIC TANK on 04/27/20 at 0920 INCLUDING: MANY GRAM NEGATIVE RODS FINAL ID= [PROTEUS MIRABILIS/PENNERI] FINAL ID= [ACINETOBACTER BAU/NOS GROUP] MODERATE [ENTEROCOCCUS FAECALIS] on 04/28/20 at 1148 UNIDENTIFIED ORGANISM UNIDENTIFIED ORGANISM ACINETOBACTER BAU/NOS GROUP PROTEUS MIRABILIS UNIDENTIFIED ORGANISM ENTEROCOCCUS FAECALIS ENTEROCOCCUS FAECALIS PROTEUS MIRABILIS/PENNERI Unless otherwise specified, Testing Performed by: [address] [address] For Inquires, the Physician may contact the Microbiology department at [phone] PE: GEN: NAD LUNGS: CTAB HEART: RRR ABD: soft, non-tender, left-sided ostomy w/ air NEURO/PSYCH: A & O 3 A/P: UTI MS w/ chronic sacral wound, colostomy, and urostomy H/o constipation - uses Miralax QD-BID -- DC per primary. Justicifation of Admission Dx: Justifications for Admission: Justification of Admission Dx: Yes Sepsis: Isolation Indicated Altered Mental Status: Altered Mental Status BIANCA HAWTHORNE Apr 29, 2020 09:51
--- NOTE | 2020-04-29 10:42 | PDOC ---
[employer] PROGRESS NOTE Date of Service DOS: DATE: 04/29/20 TIME: 10:41 Chief Complaint Chief Complaint VTE Prophylaxis Ordered VTE Prophylaxis Devices: Yes VTE Pharmacological Prophylaxi: Yes Assessment/Plan Assessment/Plan IMPRESSION: 1. acute SEPSIS 2. Mild distended small bowel loops in the lower small bowel region nonspecific // partial small bowel obstruction. 3. Minimal amount of fluid identified in the right paracolic gutter region, nonspecific. 4. Hepatic steatosis. 5. on ct ulcer identified in the right gluteal region extending to the right ischial tuberosity region. Consider follow-up MRI pelvis to exclude osteomyelitis 6. Acute pyelonephritis 7. DIABETES 8. Sacral decubitus ulcer status post flap 9. post left [id number]. post right-sided urostomy 10.COVID-19 - 11. Hypertension/ 12. hyperlipidemia 13. History of pneumonia 14. History of sacral osteomyelitis 15. History of nephrolithiasis; lithotripsy plan admit regular due to sepsis, need for iv antibiotics> 48 hrs blood and urine cultures ID consult GI CONSULT Emperic iv antibiotics, Start Zosyn. iv Follow-up labs and cultures Continue supportive care ortho consult procalcitonin sepsis protocol iv fluid support dvt prophylaxis accuchecks, ss insulin F/U GNR and GPC from sacral wound wound care following >100,000 CFU/ML GRAM NEGATIVE RODS on 04/26/20 at 0952 FINAL ID= [PROTEUS MIRABILIS] 1-16 39 min pt exam, chart review, > 50% of time spent with exam, chart review, pt care coordination Justifications for Admission Other Justification History of Present Illness History of Present Illness Chief Complaint seen in er with possible pyelonephritis , sacral wound// 70 year old female presented to the ER by EMS from residential due to right side flank pain, abdominal pain and fever. tested positive for COVID-19 INFECTION on 03/24/20. Patient has MS, has urostomy and colostomy. // has fever with generalized weakness. hx baclofen pump on the right side. // last week when she was evaluated at , when they moved her, they pumped her right side of abdomen against the bed rail. Since she has right side abdominal pain in 2015 developed a large sacral decubitus ulcer and hospitalized at [facility] for osteomyelitis. At that time, she underwent a debridement and was transferred to [facility] where she completed a course of IV antibiotics. 04/28: Patient seen and evaluated bedside. She denies any dysuria or nausea. Minimal CVA tenderness. Transition from IV to oral antibiotics. We will mo nitor patient overnight for continued improvement and likely discharge tomorrow morning. Discussed with RN. 04/29: Patient seen and evaluated. She denies any dysuria or nausea. She has no new complaints. She feels comfortable discharging to skilled rehab today on course of Augmentin. Greater than 30 minutes was spent managing the discharge this patient. Vitals/I&O Vitals/I&O: Vital Signs Date Time Temp Pulse Resp B/P (MAP) Pulse Ox O2 Delivery O2 Flow Rate FiO2 04/29/20 07:00 96.1 85 20 124/63 (83) 96 Room Air 96.1 I & O 04/28/20 04/28/20 04/29/20 15:00 23:00 07:00 Intake Total 460 ml Output Total 2200 ml Balance -2200 ml 460 ml Physical Exam Physical Exam: Constitutional: Well developed, well nourished, no acute distress, non-toxic appearance. [] HENT: Normocephalic, atraumatic, bilateral external ears normal, oropharynx pa[address] st, no oral exudates, nose normal. [] Eyes: PERRLA, EOMI, conjunctiva normal, no discharge. [] Neck: Normal range of motion, no tenderness, supple, no stridor. [] Cardiovascular: Sinus tachycardia, regular rhythm, no murmur [] Lungs & Thorax: Bilateral breath sounds clear to auscultation [] Abdomen: Bowel sounds normal, soft, There is right side flank tenderness to palpation, no masses, no pulsatile masses. [] Skin: Warm, dry, facial hot flush. sacral wound Back: No tenderness, RIGHT SIDE CVA tenderness. [] Extremities: No tenderness, no cyanosis, no clubbing, ROM intact, no edema. [] General: Alert, Oriented X3, No acute distress Heart: Regular rate, Normal S1, Normal S2, No murmurs Lungs: Clear Abdomen: Normal bowel sounds, Other (Urostomy and colostomy in place functioning) Extremities: No cyanosis Skin: No rashes Labs Labs: Laboratory Tests Test 04/28/20 11:03 04/28/20 15:57 04/28/20 19:58 Glucose (Fingerstick) 189 mg/dL (70-99) 238 mg/dL (70-99) 244 mg/dL (70-99) Assessment and Plan Assessmemt and Plan Problems Medical Problems: (1) Flank pain Status: Acute (2) Multiple sclerosis Status: Acute (3) Partial small bowel obstruction Status: Acute (4) Pyelonephritis Status: Acute (5) Sepsis Status: Acute (6) UTI (urinary tract infection) Status: Acute Comment Review of Relevant I have reviewed the following items genoveva (where applicable) has been applied. Medications: Current Medications Medications (Trade) Dose Ordered Sig/Alison Route PRN Reason Start Time Stop Time Status Last Admin Dose Admin Amoxicillin/ Clavulanate Potassium (Augmentin 875/ 125mg) 1 tab BID PO 04/28/20 21:00 04/29/20 08:26 Justifications for Admission General Conditions Poss tachycardia?: Yes Justification for admission: Patient has tachycardia (> 100 beats per minute) which is not readily corrected by appropriate treatment within 12 to 24 hours. severe sepsis Other Justification YVETTE KLEIN MD Apr 29, 2020 10:42
--- NOTE | 2020-04-29 10:44 | SNU/HH DC ---
DISCHARGE ORDERS DISCHARGE INFORMATION: DISCHARGE DATE: Apr 29, 2020 FINAL DIAGNOSIS Problems Medical Problems: (1) Flank pain Status: Acute (2) Multiple sclerosis Status: Acute (3) Partial small bowel obstruction Status: Acute (4) Pyelonephritis Status: Acute (5) Sepsis Status: Acute (6) UTI (urinary tract infection) Status: Acute CONDITION ON DISCHARGE: Stable CODE STATUS: Code Status: DNR/DNI RETIREMENT: SNF STAY <30 DAYS: Yes POST DISCHARGE ORDERS: ACTIVITY ORDERS: Activity as tolerated, Other ROM activity WEIGHT BEARING STATUS: Non weight bearing DIET AFTER DISCHARGE: ADA WOUND/INCISION CARE: Change dressing, Routine catheter care CHECKS AFTER DISCHARGE: CHECKS AFTER DISCHARGE: Check blood press - daily TREATMENT/EQUIPMENT ORDERS: RESPIRATORY EQUIPMENT NEEDED: Oxygen DISCHARGE MEDICATIONS: Home Meds Reported Medications Ondansetron Hcl (ZOFRAN) 4 Mg Tablet, 1 TAB PO Q4HRS PRN for NAUSEA, #20 TAB 04/25/20 Zinc Sulfate (ZINC SULFATE) 220 Mg Tablet, 1 TAB PO QHS for supplement for 30 Days, #30 TAB 0 Refills 04/25/20 Pyridoxine HCl (Vitamin B6) (Pyridoxine HCl) 25 Mg Tablet, 100 MG PO QAM for supplement, TAB 04/25/20 Venlafaxine Hcl (VENLAFAXINE HCL) 75 Mg Tablet, 187.5 MG PO DAILY for depression, TAB 04/25/20 Propylene Glycol/Peg 400 (SYSTANE ULTRA 0.4-0.3% EYE DRP) 10 Ml Drops, 1 DROP EACHEYE QID PRN for DRY EYE, #30 ML 4 Refills 04/25/20 Sennosides (SENNA) 8.6 Mg Tablet, 8.6 MG PO QEVNG for constipation, TAB 04/25/20 Multivitamin (MULTI VITAMIN DAILY) 1 Each Tablet, 1 TAB PO DAILY for supplement for 30 Days, #30 TAB 0 Refills 04/25/20 Melatonin (MELATONIN) 5 Mg Tab.subl, 2 TAB SL QHS for sleep for 30 Days, #60 TAB 0 Refills 04/25/20 Cetirizine Hcl (CETIRIZINE HCL) 10 Mg Tablet, 1 TAB PO DAILY for allergies, #30 TAB 5 Refills 04/25/20 Diphenhydramine Hcl (BENADRYL) 25 Mg Capsule, 25 MG PO Q6HRS for itching, CAP 04/25/20 Atorvastatin Calcium (ATORVASTATIN CALCIUM) 20 Mg Tablet, 20 MG PO HS for FOR CHOLESTEROL, #30 TAB 0 Refills 04/25/20 Acetaminophen (TYLENOL) 325 Mg Tablet, 2 TAB PO PRN Q6HRS PRN for PAIN, #30 TAB 04/25/20 Ascorbic Acid (VITAMIN C) 500 Mg Capsule.er, 500 MG PO DAILY 08/08/15 Polyethylene Glycol 8000 (POLYETHYLENE GLYCOL) 500 Gm Powder, 17 GM PO DAILY 08/08/15 Furosemide (FUROSEMIDE) 40 Mg Tablet, 1 TAB PO DAILY, #30 TAB 5 Refills 08/08/15 Ferrous Sulfate (FERROUSUL) 325 Mg Tablet, 325 MG PO DAILY 08/08/15 Docusate Sodium (Colace Clear) 50 Mg Capsule, 100 MG PO BID 08/08/15 Clotrimazole (CLOTRIMAZOLE AF) 30 Gm Cream..g., 30 GM TP 08/08/15 Bisacodyl (BISACODYL) 5 Mg Tablet.dr, 5 MG PO PRN DAILY PRN for CONSTIPATION, TAB 0 Refills 08/08/15 Aspirin (ASPIRIN) 81 Mg Tab.chew, 1 TAB PO DAILY, #30 TAB 3 Refills 08/08/15 Discontinued Reported Medications Zinc Sulfate (ZINC SULFATE) 220 Mg Capsule, 220 MG PO DAILY 08/08/15 Venlafaxine Hcl (VENLAFAXINE HCL ER) 150 Mg Tab.er.24, 1 TAB PO DAILY, #30 TAB 1 Refill 08/08/15 Amino Acids/Protein Hydrolys (PRO-STAT LIQUID) 30 Ml Liquid.pkt, 30 ML PO BID 08/08/15 Potassium Chloride (POTASSIUM CHLORIDE ) 20 Meq Tablet.er, 40 MEQ PO TID, TAB.SR 08/08/15 Oxycodone Hcl (OXYCODONE HCL) 5 Mg Capsule, 1 CAP PO Q4HRS PRN for PAIN, #90 CAP 08/08/15 Loratadine (LORATADINE) 10 Mg Tablet, 1 TAB PO DAILY, #30 TAB 5 Refills 08/08/15 Flavoxate Hcl (FLAVOXATE HCL) 100 Mg Tablet, 100 MG PO HS 08/08/15 Clotrimazole (Itch Relief) 15 Gm Cream..g., 15 GM TP 08/08/15 Atorvastatin Calcium (ATORVASTATIN CALCIUM) 40 Mg Tablet, 1 TAB PO DAILY, #30 TAB 5 Refills 08/08/15 YVETTE KLEIN MD Apr 29, 2020 10:44
--- NOTE | 2020-04-29 10:49 | PDOC3 ---
Discharge Summary Visit Information Date of Admission: Apr 24, 2020 Date of Discharge: Apr 29, 2020 Final Diagnosis Problems Medical Problems: (1) Flank pain Status: Acute (2) Multiple sclerosis Status: Acute (3) Partial small bowel obstruction Status: Acute (4) Pyelonephritis Status: Acute (5) Sepsis Status: Acute (6) UTI (urinary tract infection) Status: Acute Brief Hospital Course Allergies Allergies Coded Allergies Type Severity Reaction Last Updated Verified ceftriaxone Allergy Severe Anaphylaxis 04/28/20 Yes Vital Signs Vital Signs Date Time Temp Pulse Resp B/P (MAP) Pulse Ox O2 Delivery O2 Flow Rate FiO2 04/29/20 07:00 96.1 85 20 124/63 (83) 96 Room Air 96.1 Lab Results Laboratory Tests Test 04/27/20 15:55 04/27/20 19:01 04/28/20 07:19 04/28/20 07:27 Glucose (Fingerstick) 272 mg/dL (70-99) 242 mg/dL (70-99) 127 mg/dL (70-99) White Blood Count 7.5 x10^3/uL (4.0-11.0) Red Blood Count 4.28 x10^6/uL (3.50-5.40) Hemoglobin 10.8 g/dL (12.0-15.5) Hematocrit 33.4 % (36.0-47.0) Mean Corpuscular Volume 78 fL (79-100) Mean Corpuscular Hemoglobin 25 pg (25-35) Mean Corpuscular Hemoglobin Concent 32 g/dL (31-37) Red Cell Distribution Width 17.6 % (11.5-14.5) Platelet Count 274 x10^3/uL (140-400) Neutrophils (%) (Auto) 53 % (31-73) Lymphocytes (%) (Auto) 30 % (24-48) Monocytes (%) (Auto) 10 % (0-9) Eosinophils (%) (Auto) 6 % (0-3) Basophils (%) (Auto) 1 % (0-3) Neutrophils # (Auto) 3.9 x10^3/uL (1.8-7.7) Lymphocytes # (Auto) 2.3 x10^3/uL (1.0-4.8) Monocytes # (Auto) 0.7 x10^3/uL (0.0-1.1) Eosinophils # (Auto) 0.5 x10^3/uL (0.0-0.7) Basophils # (Auto) 0.1 x10^3/uL (0.0-0.2) Sodium Level 143 mmol/L (136-145) Potassium Level 3.6 mmol/L (3.5-5.1) Chloride Level 107 mmol/L (98-107) Carbon Dioxide Level 26 mmol/L (21-32) Anion Gap 10 (6-14) Blood Urea Nitrogen 7 mg/dL (7-20) Creatinine 0.6 mg/dL (0.6-1.0) Estimated GFR (Cockcroft-Gault) 98.8 Glucose Level 132 mg/dL (70-99) Calcium Level 8.4 mg/dL (8.5-10.1) Magnesium Level 2.1 mg/dL (1.8-2.4) Test 04/28/20 11:03 04/28/20 15:57 04/28/20 19:58 Glucose (Fingerstick) 189 mg/dL (70-99) 238 mg/dL (70-99) 244 mg/dL (70-99) Laboratory Tests Test 04/28/20 11:03 04/28/20 15:57 04/28/20 19:58 Glucose (Fingerstick) 189 mg/dL (70-99) 238 mg/dL (70-99) 244 mg/dL (70-99) Brief Hospital Course Ms. Malcolm is a 70 old female who presented with pyelonephritis, partial SBO. Consultations placed to GI and infectious disease. She was eating and stooling okay, no concerns for SBO after evaluation, per GI. She was treated with IV antibiotics, per ID. Patient improved and was transitioned to p.o. antibiotics. She was stable for discharge to SNF to complete course of oral Augmentin outpatient. Discharge Information Condition at Discharge: Improved Follow Up: Weeks Disposition/Orders: D/C to Another Facility Scheduled Ascorbic Acid (Vitamin C) 500 Mg Capsule.er, 500 MG PO DAILY, (Reported) Entered as Reported by: JAQUELINE ZHANG on 08/08/15 0639 Last Action: Converted on 04/25/20 1023 by CHERI ALVARZE RN Aspirin (Aspirin) 81 Mg Tab.chew, 1 TAB PO DAILY, #30 Ref 3 (Reported) Entered as Reported by: JAQUELINE ZHANG on 08/08/15638 Last Action: Continued on 04/25/201022 by CHERI ALVAREZ RN Atorvastatin Calcium (Atorvastatin Calcium) 20 Mg Tablet, 20 MG PO HS for FOR CHOLESTEROL, #30 Ref 0 (Reported) Entered as Reported by: MORA LY RN on 04/25/20207 Last Action: Continued on 04/25/201022 by CHERI ALVAREZ RN Cetirizine Hcl (Cetirizine Hcl) 10 Mg Tablet, 1 TAB PO DAILY for allergies, #30 Ref 5 (Reported) Entered as Reported by: MORA LY RN on 04/25/20207 Last Action: Continued on 04/25/201022 by CHERI ALVAREZ RN Diphenhydramine Hcl (Benadryl) 25 Mg Capsule, 25 MG PO Q6HRS for itching, (Reported) Entered as Reported by: MORA LY RN on 04/25/20207 Last Action: Continued on 04/25/201022 by CHERI ALVAREZ RN Docusate Sodium (Colace Clear) 50 Mg Capsule, 100 MG PO BID, (Reported) Entered as Reported by: JAQUELINE ZHANG on 08/08/15638 Last Action: Converted on 04/25/201022 by CHERI ALVAREZ RN Ferrous Sulfate (Ferrousul) 325 Mg Tablet, 325 MG PO DAILY, (Reported) Entered as Reported by: JAQUELINE ZHANG on 08/08/15638 Last Action: Continued on 04/25/201022 by CHERI ALVAREZ RN Furosemide (Furosemide) 40 Mg Tablet, 1 TAB PO DAILY, #30 Ref 5 (Reported) Entered as Reported by: JAQUELINE ZHANG on 08/08/15638 Last Action: Continued on 04/25/201022 by CHERI ALVAREZ RN Melatonin (Melatonin) 5 Mg Tab.subl, 2 TAB SL QHS for sleep for 30 Days, #60 Ref 0 (Reported) Entered as Reported by: MORA LY RN on 04/25/20207 Last Action: Converted on 04/25/201022 by CHERI ALVAREZ RN Multivitamin (Multi Vitamin Daily) 1 Each Tablet, 1 TAB PO DAILY for supplement for 30 Days, #30 Ref 0 (Reported) Entered as Reported by: MORA LY RN on 04/25/20207 Last Action: Converted on 04/25/201022 by CHERI ALVAREZ RN Polyethylene Glycol 8000 (Polyethylene Glycol) 500 Gm Powder, 17 GM PO DAILY, (Reported) Entered as Reported by: JAQUELINE ZHANG on 08/08/15638 Last Action: Converted on 04/25/201022 by CHERI ALVAREZ RN Pyridoxine HCl (Vitamin B6) (Pyridoxine HCl) 25 Mg Tablet, 100 MG PO QAM for supplement, (Reported) Entered as Reported by: MORA LY RN on 04/25/20207 Last Action: Converted on 04/25/201022 by CHERI ALVAREZ RN Sennosides (Senna) 8.6 Mg Tablet, 8.6 MG PO QEVNG for constipation, (Reported) Entered as Reported by: MORA LY RN on 04/25/20207 Last Action: Continued on 04/25/201022 by CHERI ALVAREZ RN Venlafaxine Hcl (Venlafaxine Hcl) 75 Mg Tablet, 187.5 MG PO DAILY for depression, (Reported) Entered as Reported by: MORA LY RN on 04/25/20207 Last Action: Continued on 04/25/201022 by CHERI ALVAREZ RN Zinc Sulfate (Zinc Sulfate) 220 Mg Tablet, 1 TAB PO QHS for supplement for 30 Days, #30 Ref 0 (Reported) Entered as Reported by: MORA LY RN on 04/25/20207 Last Action: Converted on 04/25/201022 by CHERI ALVAREZ RN Scheduled PRN Acetaminophen (Tylenol) 325 Mg Tablet, 2 TAB PO PRN Q6HRS PRN for PAIN, #30 (Reported) Entered as Reported by: MORA LY RN on 04/25/20207 Last Action: Continued on 04/25/201022 by CHERI ALVAREZ RN Bisacodyl (Bisacodyl) 5 Mg Tablet.dr, 5 MG PO PRN DAILY PRN for CONSTIPATION, Ref 0 (Reported) Entered as Reported by: JAQUELINE ZHANG on 08/08/15638 Ondansetron Hcl (Zofran) 4 Mg Tablet, 1 TAB PO Q4HRS PRN for NAUSEA, #20 (Reported) Entered as Reported by: MORA LY RN on 04/25/20207 Last Action: Converted on 04/25/201022 by CHERI ALVAREZ RN Propylene Glycol/Peg 400 (Systane Ultra 0.4-0.3% Eye Drp) 10 Ml Drops, 1 DROP EACHEYE QID PRN for DRY EYE, #30 Ref 4 (Reported) Entered as Reported by: MORA LY RN on 04/25/20207 Last Action: Converted on 04/25/201022 by CHERI ALVAREZ RN Miscellaneous Medications Clotrimazole (Clotrimazole Af) 30 Gm Cream..g., 30 GM TP, (Reported) Entered as Reported by: JAQUELINE ZHANG on 08/08/15638 Last Action: Reviewed on 04/25/20207 by MORA LY RN Discontinued Medications Amino Acids/Protein Hydrolys (Pro-Stat Liquid) 30 Ml Liquid.pkt, 30 ML PO BID, (Reported) Entered as Reported by: JAQUELINE ZHANG on 08/08/15638 Last Action: Discontinued on 04/25/20207 by MORA LY RN Atorvastatin Calcium (Atorvastatin Calcium) 40 Mg Tablet, 1 TAB PO DAILY, #30 Re f 5 (Reported) Entered as Reported by: JAQUELINE ZHANG on 08/08/15638 Last Action: Discontinued on 04/25/20207 by MORA LY RN Clotrimazole (Itch Relief) 15 Gm Cream..g., 15 GM TP, (Reported) Entered as Reported by: JAQUELINE ZHANG on 08/08/15638 Last Action: Discontinued on 04/25/20207 by MORA LY RN Flavoxate Hcl (Flavoxate Hcl) 100 Mg Tablet, 100 MG PO HS, (Reported) Entered as Reported by: JAQUELINE ZHANG on 08/08/15638 Last Action: Discontinued on 04/25/20207 by MORA LY RN Loratadine (Loratadine) 10 Mg Tablet, 1 TAB PO DAILY, #30 Ref 5 (Reported) Entered as Reported by: JAQUELINE ZHANG on 08/08/15638 Last Action: Discontinued on 04/25/20207 by MORA LY RN Oxycodone Hcl (Oxycodone Hcl) 5 Mg Capsule, 1 CAP PO Q4HRS PRN for PAIN, #90 (Reported) Entered as Reported by: JAQUELINE ZHANG on 08/08/15638 Last Action: Discontinued on 04/25/20207 by MORA LY RN Potassium Chloride (Potassium Chloride ) 20 Meq Tablet.er, 40 MEQ PO TID, (Reported) Entered as Reported by: JAQUELINE ZHANG on 08/08/15638 Last Action: Discontinued on 04/25/20207 by MORA LY RN Venlafaxine Hcl (Venlafaxine Hcl Er) 150 Mg Tab.er.24, 1 TAB PO DAILY, #30 Ref 1 (Reported) Entered as Reported by: JAQUELINE ZHANG on 08/08/15638 Last Action: Discontinued on 04/25/20207 by MORA LY RN Zinc Sulfate (Zinc Sulfate) 220 Mg Capsule, 220 MG PO DAILY, (Reported) Entered as Reported by: JAQUELINE ZHANG on 08/08/15638 Last Action: Discontinued on 04/25/20207 by MORA LY RN Justicifation of Admission Dx: Justifications for Admission: Justification of Admission Dx: Yes Sepsis: Isolation Indicated Altered Mental Status: Altered Mental Status YVETTE KLEIN MD Apr 29, 2020 10:49
--- NOTE | 2020-04-29 10:52 | PDOC ---
Infectious Disease Note Subjective: Subjective Patient denies any complaints Vital Signs: Vital Signs Vital Signs Date Time Temp Pulse Resp B/P (MAP) Pulse Ox O2 Delivery O2 Flow Rate FiO2 04/29/20 07:00 96.1 85 20 124/63 (83) 96 Room Air 96.1 Physical Exam: PHYSICAL EXAM Constitutional: Well developed, well nourished, no acute distress, non-toxic appearance. [] HENT: Normocephalic, atraumatic, bilateral external ears normal, oropharynx paulina st, no oral exudates, nose normal. [] Eyes: PERRLA, EOMI, conjunctiva normal, no discharge. [] Neck: Normal range of motion, no tenderness, supple, no stridor. [] Cardiovascular: Sinus tachycardia, regular rhythm, no murmur [] Lungs & Thorax: Bilateral breath sounds clear to auscultation [] Abdomen: Bowel sounds normal, soft, There is right side flank tenderness to palpation, no masses, no pulsatile masses. [] Skin: Warm, dry, facial hot flush. sacral wound Back: No tenderness, RIGHT SIDE CVA tenderness. [] Extremities: No tenderness, no cyanosis, no clubbing, ROM intact, no edema. [] Medications: Inpatient Meds: Current Medications Medications (Trade) Dose Ordered Sig/Alison Start Time Stop Time Status Last Admin Dose Admin Acetaminophen (Tylenol Supp) 650 mg PRN Q4HRS PRN 04/25/20 12:30 Acetaminophen (Tylenol) 650 mg PRN Q4HRS PRN 04/25/20 12:30 04/25/20 21:24 650 MG Al Hydroxide/Mg Hydroxide (Mylanta Plus Xs) 30 ml PRN DAILY PRN 04/25/20 12:30 Albuterol Sulfate (Ventolin Neb Soln) 2.5 mg PRN Q4HRS PRN 04/25/20 12:30 Amoxicillin/ Clavulanate Potassium (Augmentin 875/ 125mg) 1 tab BID 04/28/20 21:00 04/29/20 08:26 1 TAB Ascorbic Acid (Vitamin C) 500 mg DAILY 04/25/20 11:00 04/29/20 08:27 500 MG Aspirin (Aspirin Chewable) 81 mg DAILY 04/25/20 11:00 04/29/20 08:25 81 MG Atorvastatin Calcium (Lipitor) 20 mg HS 04/25/20 21:00 04/28/20 23:15 20 MG Cetirizine HCl (ZyrTEC) 10 mg DAILY 04/25/20 11:00 04/29/20 08:27 10 MG Dextrose (Dextrose 50%-Water Syringe) 12.5 gm PRN Q15MIN PRN 04/25/20 14:00 Diphenhydramine HCl (Benadryl) 25 mg PRN Q6HRS PRN 04/25/20 11:00 Docusate Sodium (Colace) 100 mg PRN BID PRN 04/25/20 12:30 Enoxaparin Sodium (Lovenox 40mg Syringe) 40 mg Q24H 04/25/20 13:00 04/28/20 12:01 40 MG Ferrous Sulfate (Feosol) 325 mg DAILYWBKFT 04/25/20 12:00 04/29/20 08:27 325 MG Furosemide (Lasix) 40 mg DAILY 04/25/20 11:00 04/29/20 08:27 40 MG Glycerin/ Hypromellose/ Polyethylene (Artificial Tears) 1 drop PRN QID PRN 04/25/20 11:00 Guaifenesin (Robitussin) 200 mg PRN Q4HRS PRN 04/25/20 12:30 04/28/20 23:14 200 MG Info (CONTRAST GIVEN -- Rx MONITORING) 1 each PRN DAILY PRN 04/24/20 18:00 04/26/20 17:59 DC Info (Non-Icu Electrolyte Protocol) 1 ea CONT PRN PRN 04/26/20 14:15 Insulin Human Lispro (HumaLOG) 4 units 1X ONCE 04/25/20 21:00 04/25/20 21:01 DC 04/25/20 20:39 4 UNITS Iohexol (Omnipaque 300 Mg/ml) 75 ml 1X ONCE 04/24/20 18:00 04/24/20 18:01 DC 04/24/20 18:07 75 ML Lactobacillus Rhamnosus (Culturelle) 1 cap BID 04/25/20 21:00 04/29/20 08:26 1 CAP Levofloxacin/ Dextrose 100 ml @ 100 mls/hr Q24H 04/25/20 13:00 04/25/20 15:12 DC Lorazepam (Ativan) 0.5 mg PRN Q4HRS PRN 04/25/20 12:30 Magnesium Sulfate 50 ml @ 25 mls/hr Q24H 04/26/20 14:15 04/28/20 16:14 UNV Morphine Sulfate (Morphine Sulfate) 4 mg 1X ONCE 04/24/20 18:00 04/24/20 18:01 DC Multivitamins (Thera M Plus) 1 tab DAILY 04/26/20 09:00 04/29/20 08:26 1 TAB Non-Formulary Medication (Melatonin ) 2 tab QHS 04/25/20 21:00 UNV Ondansetron HCl (Zofran Odt) 4 mg PRN Q4HRS PRN 04/25/20 10:45 Ondansetron HCl (Zofran) 4 mg PRN Q4HRS PRN 04/25/20 12:30 Piperacillin Sod/ Tazobactam Sod 3.375 gm/Sodium Chloride 50 ml @ 100 mls/hr Q6HRS 04/25/20 17:00 04/28/20 11:31 DC 04/28/20 05:19 100 MLS/HR Polyethylene Glycol (miraLAX PACKET) 17 gm PRN DAILY PRN 04/25/20 13:15 Potassium Bicarbonate (Potassium Effervescent Tablet) 40 meq 1X ONCE 04/27/20 13:30 04/27/20 13:31 DC 04/27/20 14:41 40 MEQ Potassium Phos/ Sodium Phos (Phos-Nak) 1 pkt BID 04/26/20 21:00 04/27/20 09:01 UNV Pyridoxine HCl (Vitamin B-6) 100 mg DAILY 04/25/20 11:00 04/29/20 08:28 100 MG Sennosides (Senna) 8.6 mg QEVNG 04/25/20 18:00 04/28/20 17:14 8.6 MG Sodium Monofluorophosphate (Fleet Adult) 133 ml PRN DAILY PRN 04/25/20 12:30 Sodium Chloride 1,000 ml @ 100 mls/hr Q10H 04/25/20 12:30 04/28/20 09:05 100 MLS/HR Sodium Chloride (Normal Saline Flush) 3 ml QSHIFT PRN 04/25/20 12:30 Throat Lozenges (Cepacol Sore Throat Lozenge) 1 sharan PRN Q2HRS PRN 04/25/20 21:00 04/27/20 00:32 1 SHARAN Vancomycin HCl (Vanco Per Pharmacy) 1 each PRN DAILY PRN 04/25/20 12:30 UNV Vancomycin HCl (Vancomycin Trough Level) 1 each 1X ONCE 04/27/20 13:30 04/25/20 15:13 DC Vancomycin HCl 1.25 gm/Sodium Chloride 250 ml @ 167 mls/hr Q24H 04/26/20 14:00 04/25/20 15:12 DC Vancomycin HCl 2 gm/Sodium Chloride 500 ml @ 250 mls/hr 1X ONCE 04/25/20 12:45 04/25/20 14:44 DC 04/25/20 14:09 250 MLS/HR Venlafaxine HCl (Effexor Xr) 187.5 mg DAILY 04/25/20 11:00 04/29/20 08:26 187.5 MG Zinc Sulfate (Orazinc) 220 mg QHS 04/25/20 21:00 04/28/20 23:15 220 MG Labs: Lab Laboratory Tests Test 04/28/20 11:03 04/28/20 15:57 04/28/20 19:58 Glucose (Fingerstick) 189 mg/dL (70-99) 238 mg/dL (70-99) 244 mg/dL (70-99) Objective: Assessment: Fever resolved Proteus mirabilis UTI Leukocytosis and lactic acidosis Neck/rib pain History of multiple sclerosis Sacral decubitus ulcer status post flap Status post left colostomy Status post right-sided urostomy History of COVID-19 last month Hypertension/hyperlipidemia History of pneumonia History of sacral osteomyelitis swab cult proteus, stable wounds History of nephrolithiasis; lithotripsy Status post baclofen pump History of hysterectomy History of allergies to ceftriaxone with anaphylaxis; Patient has tolerated penicillin, Unasyn, Augmentin well Plan: Plan of Care Cont Augmentin for 4 more days wound care as directed Continue supportive care d/w VENU Chan MD Apr 29, 2020 10:52
[2020-04-29 11:00] VITALS: BP 131/54
[2020-04-29 12:23] LABS: CREATININE 0.6 mg/dL (0.6-1.0); GFR 98.8; POTASSIUM 3.9 mmol/L (3.5-5.1)
[2020-04-29] MEDS: ENOXAPARIN 40 MG/0.4 ML SYRINGE. SQ SCH (12:38)
[2020-04-29 15:00] VITALS: BP 129/51
--- NOTE | 2020-04-29 16:24 | NUR ---
Discharge Note: NAYAN RIVERA6 [facility] Discharge instructions and discharge home medications reviewed with Yari ALSTON of [facility] [place]Note 2] and rehab at 1610 and a copy given to transport personnel All questions have been answered and understanding verbalized. The following instructions and handouts were given: Home meds as directed Continue Co amoxiclav Wound care daily, change dressing daily Turn Q2 Watch out for fever, severe weakness, nausea, vomiting. Discontinued lines and drains: peripheral IV intact, patient tolerated removal, no complications noted Patient discharged to [facility] [place]Note 2[facility] and rehab via stretcher on room air accompanied by transport personnel at 1615.
== END 2020-04-29 16:15 | DRG 871 ==
LOC: ER 15:38 → ED HOLD 18:34 → 6 SOUTH 22:44
PROVIDERS: ADMIT Family Medicine; ATTEND Family Medicine
DX: A41.9 Sepsis, unspecified organism (principal); E43 Unspecified severe protein-calorie malnutrition; J98.11 Atelectasis; K56.600 Partial intestinal obstruction, unspecified as to cause; N10 Acute pyelonephritis; Z66 Do not resuscitate; G35 Multiple sclerosis; K76.0 Fatty (change of) liver, not elsewhere classified; E11.9 Type 2 diabetes mellitus without complications; B96.4 Proteus (mirabilis) (morganii) as the cause of diseases classified elsewhere; L89.159 Pressure ulcer of sacral region, unspecified stage; I10 Essential (primary) hypertension; D64.9 Anemia, unspecified; E78.5 Hyperlipidemia, unspecified; F32.9 Major depressive disorder, single episode, unspecified; Z86.16 Personal history of COVID-19; Z96.89 Presence of other specified functional implants; E66.9 Obesity, unspecified; K21.9 Gastro-esophageal reflux disease without esophagitis; Z93.3 Colostomy status; Z79.899 Other long term (current) drug therapy; Z82.49 Family history of ischemic heart disease and other diseases of the circulatory system; Z87.01 Personal history of pneumonia (recurrent); Z87.442 Personal history of urinary calculi; Z90.710 Acquired absence of both cervix and uterus; Z93.6 Other artificial openings of urinary tract status; I25.2 Old myocardial infarction; Z68.30 Body mass index [BMI] 30.0-30.9, adult; Z88.1 Allergy status to other antibiotic agents
CPT/HCPCS: 36415; 71045; 74018; 74177; 80048; 80053; 81001; 82962; 83036; 83540; 83550; 83605; 83690; 83735; 84100; 84145; 84484; 85025; 85379; 85384; 85610; 86140; 87040; 87071; 87075; 87077; 87086; 87186; 87804; 93005; 96361; 96365; 96366; J1650; J1815; J1956; J2543; J3370; J7030; J7040; Q9967; 99291-25; G0378